=== PATIENT | female | born 1940 | race Caucasian/White ===

== ENCOUNTER 2017-06-08 05:57 | Inpatient (IN) | payer MEDICARE, OTHER ==
[2017-05-11 13:00] VITALS: BMI 29.0
--- NOTE | 2017-05-11 13:38 | PAT Medication Instructions ---
Service Date May 11, 2017. Current Home Medication List Albuterol Hfa (Ventolin Hfa), 2-4 PUFFS INH Q6H Aspirin (Aspirin Ec), 81 MG PO QAM Atorvastatin (Lipitor), 20 MG PO QAM Cholecalciferol (Vitamin D3), 1 CAP PO NOON Furosemide (Lasix), 20 MG PO QAM Naproxen (Naprosyn), 250 MG PO PRN Plecanatide (Trulance), 3 MG PO NOON Sertraline (Zoloft), 50 MG PO QPM Verapamil (Calan), 160 MG PO QAM Wheat Dextrin (Benefiber), 1 DOSE PO QAM Zolpidem Tartrate (Ambien), 5-10 MG PO HS PRN for Sleep Medication Instructions For Your Scheduled Surgery Naproxen (Naprosyn), 250 MG PO PRN (check with surgeon for instructions) - Hold the following medications the morning of surgery: Wheat Dextrin (Benefiber), 1 DOSE PO QAM Verapamil (Calan), 160 MG PO QAM Cholecalciferol (Vitamin D3), 1 CAP PO NOON Furosemide (Lasix), 20 MG PO QAM Plecanatide (Trulance), 3 MG PO NOON - Take the following medications the morning of surgery with a sip of water: Albuterol Hfa (Ventolin Hfa), 2-4 PUFFS INH Q6H (if needed) Aspirin (Aspirin Ec), 81 MG PO QAM (okay to continue per surgeon) Atorvastatin (Lipitor), 20 MG PO QAM - Take the following medications as scheduled the night before surgery: Zolpidem Tartrate (Ambien), 5-10 MG PO HS PRN for Sleep (if needed) Sertraline (Zoloft), 50 MG PO QPM Albuterol Hfa (Ventolin Hfa), 2-4 PUFFS INH Q6H (if needed) If you have any questions please call us at [phone] or [phone] or [phone]
--- NOTE | 2017-05-11 14:10 | DIAGNOSTIC IMAGING REPORT ---
CHEST PREADMISSION(PA/LAT) CLINICAL HISTORY: PAT preoperative evaluation COMPARISON STUDY: 06/02/2015 FINDINGS: Bipolar cardiac pacemaker. These are good position. Lungs are clear. Diaphragms smooth. IMPRESSION: No acute process. The above report was generated using voice recognition software. It may contain grammatical, syntax or spelling errors. Electronically signed by: Tian Elliott M.D. 05/11/2017 2:09 PM Dictated Date/Time: 05/11/2017 2:09 PM
[2017-05-11 14:38] LABS: BASO % 0.9 %; BASO ABS # 0.04 K/uL (0-0.2); COMPLETE YES; EOS % 4.5 %; HEMATOCRIT 39.5 % (37-47); LYMPH ABS # 1.79 K/uL (1.2-3.4); MEAN CELL VOLUME 96.8 fL (80-100); MEAN CORPUSCULAR HEMOGLOBIN 30.9 pg (25-34); MEAN CORPUSCULAR HGB CONC 31.9 g/dl (32-36); MEAN PLATELET VOLUME 10.5 fL (7.4-10.4); MONO % 12.1 %; NEUT % 42.5 %; PLATELET COUNT 175 K/uL (130-400); RED BLOOD COUNT 4.08 M/uL (4.2-5.4); WHITE BLOOD COUNT 4.48 K/uL (4.8-10.8)
[2017-05-11 14:48] LABS: URINE APPEARANCE CLEAR (CLEAR); URINE BILIRUBIN NEG (NEG); URINE COLOR YELLOW; URINE NITRITE NEG (NEG); URINE PH 6.5 (4.5-7.5); URINE SPECIFIC GRAVITY 1.016 (1.000-1.030); UROBILINOGEN NEG (NEG)
[2017-05-11 14:49] LABS: MANUAL MICROSCOPIC REQUIRED? NO; REVIEW REQ? NO
[2017-05-11 14:58] LABS: PARTIAL THROMBOPLASTIN RATIO 0.9
[2017-05-11 15:38] LABS: BUN/CREATININE RATIO 25.7 (10-20); CREATININE 0.74 mg/dl (0.60-1.20); POTASSIUM 3.9 mmol/L (3.5-5.1)
--- NOTE | 2017-06-07 17:30 | HISTORY & PHYSICAL EXAMINATION ---
DATE OF ADMISSION: 06/08/2017 CHIEF COMPLAINT: Left knee pain. HISTORY OF PRESENT ILLNESS: Luna is a pleasant 76-year-old female who presented to my office with chronic left knee pain. X-rays and clinical examination have been diagnostic for primary osteoarthritis of the left knee. After failing years of conservative treatment, she elected to proceed with a left total knee arthroplasty. PAST MEDICAL HISTORY: Significant for heart disease, hypertension and asthma. PAST SURGICAL HISTORY: Tonsillectomy, cervical spine procedure, pacemaker placement, hysterectomy and low back surgery. ALLERGIES: BEES. MEDICATIONS: Include Trulance 3 mg daily, verapamil 160 mg daily, Zoloft 50 mg daily, Lipitor 20 mg daily, and aspirin 81 mg daily. FAMILY HISTORY: Noncontributory. SOCIAL HISTORY: She is . Never drinks. Denies any alcohol or IV drug use. She does little activity at this time. REVIEW OF SYSTEMS: She complains of left knee pain. All other pertinent review of systems are negative. PHYSICAL EXAMINATION: GENERAL: She is awake, alert and orient x3. She is in no apparent distress. She is very pleasant. HEENT: Pupils are equal, round and reactive to light. Extraocular motion intact. Oral mucosa is pink and moist. HEART: Regular rate per radial pulse. LUNGS: symmetrically bilaterally with no audible breath sounds. ABDOMEN: Soft, nontender, and nondistended. MUSCULOSKELETAL: On physical examination of her left knee, she has no swelling or effusion. She has good range of motion from 0-120 degrees. She does have crepitus. She has tenderness to palpation over both the medial and lateral joint lines. She has painless range of motion of her hip. X-rays of the left knee do show advanced osteoarthritis of both medial and lateral compartments. She has joint space narrowing, osteophyte formation and subchondral cyst. IMPRESSION: Primary osteoarthritis of the left knee. PLAN: We will proceed with a Biomet Vanguard left total knee arthroplasty. Postoperatively, she will be placed on aspirin for DVT prophylaxis and admitted to the hospital for postoperative medical management.
[~2017-06-08] VITALS: Ht 165.1 cm; Wt 79.8 kg
[2017-06-08] VITALS (9 sets, daily range): BP systolic 133–180; BP diastolic 52–82; PULSE 59–79; TEMP 36.4–36.7; O2SAT 91–100; Ht 165.1 cm; Wt 79.8 kg
[~2017-06-08 05:57] MED LIST: ASPI81TA28 PO; ATOR-22 PO; CHOL2000 PO; FURO-85 PO; NAPR250T2 PO; PLEC3TAB PO; SERT50TA PO; VERA1TAB PO; VNTHFA/IN INH; WHEAPOW13 PO; ZOLP5TAB PO
[2017-06-08] MEDS ORDERED: LACTATED RINGER'S 1000ML 1,000 ML IV SCH (06:00)
[2017-06-08] MEDS ORDERED: LACTATED RINGER'S 1000ML 500 ML IV ONE (06:00)
[2017-06-08] MEDS ORDERED: ACETAMINOPHEN 500 MG TAB PO SCH (06:00)
[2017-06-08] MEDS ORDERED: GABAPENTIN 300 MG CAP PO SCH (06:00)
[2017-06-08] MEDS ORDERED: CEFAZOLIN 2000 MG/60 ML D5W 60 ML IV SCH (06:00)
[2017-06-08] MEDS ORDERED: FAMOTIDINE 20 MG TAB PO SCH (06:00)
[2017-06-08] MEDS ORDERED: LACTATED RINGER'S 1000ML IV SCH (06:00)
[2017-06-08] MEDS ORDERED: ROPIVACAINE 5MG/ML 30 ML 150 MG, BUPIVACAINE/EPINEPHR 0.5% MPF 30 ML, KETOROLAC TROMETH... INFIL SCH ×7 (06:00)
[2017-06-08] MEDS ORDERED: BUPIVACAINE 0.5 % 5 MG/1 ML PF 10ML VIAL ONE (06:27)
[2017-06-08] MEDS ORDERED: ROPIVACAINE 0.5% 5 MG/ML 30 ML VIAL ONE (06:27)
[2017-06-08] MEDS: TRANEXAMIC ACID INJ 1,000 MG in SODIUM CHLORIDE 0.9% 100ML 100 ML IV SCH ×2 (06:30→08:45)
--- NOTE | 2017-06-08 06:58 | History & Physical Bridge Note ---
H&P Re-Evaluation Bridge Note: I have examined the patient, reviewed the History & Physical and in the interval since the performance of the History & Physical I have noted the following changes of clinical significance: No changes noted
[2017-06-08] MEDS ORDERED: ORTHO JOINT ANESTHETIC ONE (08:26)
[2017-06-08] MEDS ORDERED: MIDAZOLAM HCL 1 MG/ML 2ML VIAL ONE ×2 (08:26)
[2017-06-08] MEDS ORDERED: FENTANYL CITRATE INJ 50 MCG/1 ML 2 ML VIAL ONE (08:26)
[2017-06-08] MEDS ORDERED: BACITRACIN 50000 UNIT VIAL ONE (08:26)
[2017-06-08] MEDS ORDERED: HYDROmorphone INJ 2 MG/ML SYR/VIAL IV PRN (09:00)
[2017-06-08] MEDS ORDERED: ONDANSETRON INJ 2 MG/ML 2 ML VIAL IV PRN ×2 (09:00→11:00)
[2017-06-08] MEDS ORDERED: PHENYLEPHRINE 100MCG/ML 5ML SYR IV PRN (09:00)
[2017-06-08] MEDS ORDERED: EpHEDrine SULFATE INJ 50 MG/ML AMP IV PRN (09:00)
[2017-06-08] MEDS ORDERED: ATROPINE SULFATE 0.1 MG/ML 5ML SYR IV PRN (09:00)
--- NOTE | 2017-06-08 10:47 | [facility] Post Operative Brief Note ---
Immediate Operative Summary Operative Date Jun 08, 2017. Pre-Operative Diagnosis Primary Osteoarthritis Left Knee Post-Operative Diagnosis Primary Osteoarthritis Left Knee Procedure(s) Performed Left Total Knee Arthroplasty Surgeon Dr. Brothers Brand Director Surgeon(s) CONRADO Rubin Estimated Blood Loss 5cc Findings as above Specimens A. Left Knee Bone and Tissue Complication(s) None Disposition Recovery Room / PACU
[2017-06-08] MEDS ORDERED: MoRPHine SULFATE 2 MG/ML CARP IV PRN (11:00)
[2017-06-08] MEDS ORDERED: ZOLPIDEM TARTRATE 5 MG TAB PO PRN (11:00)
[2017-06-08] MEDS ORDERED: SILVER SULFADIAZINE 1% CR 50 GM JAR EXT PRN (11:00)
[2017-06-08] MEDS ORDERED: SOD PHOSPHATE/SOD BIPHOSPHATE ENEMA 132 ML BTL PR PRN (11:00)
[2017-06-08] MEDS ORDERED: BISACODYL 10 MG SUPP PR PRN (11:00)
[2017-06-08] MEDS ORDERED: MAGNESIUM HYDROXIDE SUSP 30 ML UDC PO PRN (11:00)
[2017-06-08] MEDS ORDERED: METOCLOPRAMIDE HCL INJ 5 MG/ML 2 ML VIAL IV PRN (11:00)
[2017-06-08] MEDS ORDERED: PROPOFOL IV EMULSION 10 MG/ML 20 ML VIAL IV ONE (11:20)
--- NOTE | 2017-06-08 11:29 | OPERATIVE REPORT ---
DATE OF OPERATION: 06/08/2017 PREOPERATIVE DIAGNOSIS: Primary osteoarthritis of the left knee. POSTOPERATIVE DIAGNOSIS: Same. PROCEDURE: Left total knee arthroplasty. SURGEON: Dr. David Brothers. SURGICAL ELASTIC KNITTER: Robb Diamond PA-C, whose assistance was necessary for positioning of the leg and helping with instrumentation. ANESTHESIA: Spinal with a left adductor nerve block. COMPLICATIONS: None. CONDITION: Stable to PACU. IMPLANTS USED: I used a Biomet Vanguard left total knee arthroplasty system with a size 65 femur, 71 tibia, size 14 posterior stabilized poly and a 31 x 8 patella. All components were cemented with Palacos-G cement. INDICATIONS: Luna is a pleasant 76-year-old female who presented to my office with chronic left knee pain. X-rays and clinical examination were diagnostic for primary osteoarthritis of the left knee. After failing conservative treatment, she elected to undergo a left total knee arthroplasty. DESCRIPTION OF PROCEDURE: On 06/08/2017, she arrived at [facility] for the above procedure. She was seen in the preoperative holding area and the operative extremity was identified and signed. She was given a preoperative antibiotic, a spinal anesthetic and a left adductor nerve block. She was taken back to the operating room, laid on the table in the supine position and put under basic sedation. The left knee was then prepped and draped in sterile fashion. Time-out was done and the patient and operative extremity was properly identified. A midline incision was made directly over the patella. Dissection was taken down to the extensor mechanism and a medial parapatellar arthrotomy was used. The fat pad was left in place. The medial retinaculum was released. The knee was then flexed. ACL, PCL and meniscus were removed. A drill was sent down the center of the femoral canal followed by an intramedullary darrin. Off that darrin, a distal femoral cutting block was placed and 12 mm was resected off the distal femur at 5 degrees of valgus. A posterior referencing guide was used to measure the femur and it measured to be a size 65. Two drill holes were placed in 3 degrees of external rotation and 3-in-1 cutting block was impacted into place. Anterior, posterior and chamfer cuts were then made. The box cutting guide was then impacted into place and the box was resected for the posterior stabilizing component. The proximal tibia was then exposed. A drill was sent down the center of the tibial canal followed by an intramedullary darrin. Off that darrin, a proximal tibial resection guide was placed and 2 mm was resected off the low medial side. The tibia measured to be a size 71. It was set in the appropriate rotation, drilled and then punched. Trials were then placed. The knee was brought through a full range of motion and felt to be stable. The patella was then everted and 8 mm was resected off the posterior aspect of the patella. The patella measured to be a size 31, 3 peg holes were drilled and a trial was placed. The knee was brought through a full motion and felt good. Trials were then removed. The final femoral, tibial, and patellar components were then cemented in place with Palacos-G cement. Once cement had hardened, several different polyethylene trials were used and a size 14 posterior stabilized poly seemed to be the best fit. The final size [address] and the anterior bar was locked. The surrounding soft tissues were all injected with 100 mL of an orthopedic pain control cocktail. The knee was then irrigated with 3 liters of normal saline solution with bacitracin. Two drains were placed. The extensor mechanism was then closed with #2 FiberWire suture in the superior medial aspect and then #1 Vicryl suture, both proximally and distally. The skin was then closed with 2-0 Vicryl, 3-0 V-Loc suture and jez. She was then placed in a soft compressive dressing and taken to the postanesthesia care unit in stable condition. She tolerated the procedure well. I attest to the content of the Intraoperative Record and any orders documented therein. Any exception s are noted below.
--- NOTE | 2017-06-08 11:33 | DIAGNOSTIC IMAGING REPORT ---
LEFT KNEE 1 OR 2 VIEWS ROUTINE CLINICAL HISTORY: Postoperative evaluation. Left knee degenerative joint disease. COMPARISON: Knee radiographs March 21, 2017. FINDINGS: Alignment of the total left knee arthroplasty is anatomic. There is no fracture or unexpected radiopaque foreign body. Skin jez and drains are present. IMPRESSION: Expected findings following total left knee arthroplasty. Electronically signed by: Kemar Morales M.D. 06/08/2017 11:32 AM Dictated Date/Time: 06/08/2017 11:31 AM
--- NOTE | 2017-06-08 12:35 | Anesthesiology Progress Note ---
Anesthesia Post Op Note Date & Time Jun 08, 2017 at 12:35 Vital Signs Pain Intensity: 0 Vital Signs Past 12 Hours Date Time Temp Pulse Resp B/P (MAP) Pulse Ox O2 Delivery O2 Flow Rate FiO2 06/08/17 11:55 59 15 06/08/17 11:55 65 15 125/68 96 06/08/17 11:50 64 14 124/59 98 06/08/17 11:50 60 14 06/08/17 11:49 36.3 66 18 126/62 99 Nasal Cannula 2 06/08/17 11:45 61 14 06/08/17 11:45 65 14 126/62 99 06/08/17 11:40 60 14 122/61 100 06/08/17 11:40 60 14 06/08/17 11:36 119/54 06/08/17 11:35 63 19 06/08/17 11:35 63 19 97 06/08/17 11:30 63 14 125/57 100 06/08/17 11:30 57 14 06/08/17 11:25 62 15 123/59 100 06/08/17 11:25 60 15 06/08/17 11:20 60 23 06/08/17 11:20 63 23 110/92 100 06/08/17 11:16 36.1 62 16 111/64 100 Mask 10 06/08/17 11:16 111/54 06/08/17 11:15 60 18 100 06/08/17 11:15 60 18 06/08/17 06:20 36.7 60 20 180/72 98 Room Air Notes Mental Status: alert / awake / arousable, participated in evaluation Pt Amnestic to Procedure: Yes Nausea / Vomiting: adequately controlled Pain: adequately controlled Airway Patency, RR, SpO2: stable & adequate BP & HR: stable & adequate Hydration State: stable & adequate Anesthetic Complications: no major complications apparent
[2017-06-08] MEDS: SODIUM CHLORIDE 0.9% 1000ML 1,000 ML IV SCH ×2 (13:33→21:13)
[2017-06-08] MEDS: KETOROLAC TROMETHAMINE 15 MG/ML VIAL IV. SCH ×3 (14:30→23:55)
[2017-06-08] MEDS: ACETAMINOPHEN IV 1,000 MG in EMPTY BAG 0 ML IV SCH ×2 (16:42→23:56)
[2017-06-08] MEDS: CEFAZOLIN IV 2,000 MG in DEXTROSE 5% 50ML 50 ML IV SCH (17:48)
[2017-06-08] MEDS: ALBUTEROL HFA 8 GM INHALER INH SCH ×2 (17:49→23:55)
[2017-06-08] MEDS: DOCUSATE SODIUM 100 MG CAP PO SCH (21:24)
[2017-06-08] MEDS: ASPIRIN 325 MG ECTAB PO SCH (21:24)
[2017-06-08] MEDS: SERTRALINE HCL 50 MG TAB PO SCH (21:24)
[2017-06-08] MEDS: SENNA 8.6 MG TAB PO SCH (21:25)
[2017-06-09] MEDS: CEFAZOLIN IV 2,000 MG in DEXTROSE 5% 50ML 50 ML IV SCH (01:43)
[2017-06-09 03:22] VITALS: BP 123/64; PULSE 71; TEMP 36.5; O2SAT 93
[2017-06-09] MEDS: ALBUTEROL HFA 8 GM INHALER INH SCH ×4 (05:26→23:26)
[2017-06-09] MEDS: KETOROLAC TROMETHAMINE 15 MG/ML VIAL IV. SCH ×4 (05:34→23:26)
[2017-06-09] MEDS: SODIUM CHLORIDE 0.9% 1000ML 1,000 ML IV SCH (05:34)
[2017-06-09 06:00] LABS: HEMATOCRIT 32.1 % (37-47); MEAN CELL VOLUME 95.5 fL (80-100); MEAN CORPUSCULAR HEMOGLOBIN 30.7 pg (25-34); MEAN CORPUSCULAR HGB CONC 32.1 g/dl (32-36); MEAN PLATELET VOLUME 10.3 fL (7.4-10.4); PLATELET COUNT 152 K/uL (130-400); RED BLOOD COUNT 3.36 M/uL (4.2-5.4); WHITE BLOOD COUNT 10.23 K/uL (4.8-10.8)
[2017-06-09 06:36] LABS: BUN/CREATININE RATIO 23.4 (10-20); CALCIUM 8.6 mg/dl (8.5-10.1); CREATININE 0.8 mg/dl (0.60-1.20); POTASSIUM 3.6 mmol/L (3.5-5.1)
[2017-06-09 07:13] VITALS: BP 153/73; PULSE 62; TEMP 36.5; O2SAT 95
[2017-06-09] MEDS: ACETAMINOPHEN IV 1,000 MG in EMPTY BAG 0 ML IV SCH ×3 (07:30→23:33)
[2017-06-09] MEDS: PANTOprazole SOD 40 MG TAB PO SCH (07:31)
[2017-06-09] MEDS: ASPIRIN 325 MG ECTAB PO SCH ×2 (09:03→20:32)
[2017-06-09] MEDS: VERAPAMIL HCL 40 MG TAB PO SCH (09:03)
[2017-06-09] MEDS: ATORVASTATIN 20 MG TAB PO SCH (09:03)
[2017-06-09] MEDS: MULTIVITAMIN TAB PO SCH (09:04)
[2017-06-09] MEDS: DOCUSATE SODIUM 100 MG CAP PO SCH ×2 (09:04→20:34)
[2017-06-09] MEDS: FUROSEMIDE 20 MG TAB PO SCH (09:05)
[2017-06-09] MEDS: OXYCODONE HCL IR 5 MG TAB (IMMEDIATE RELEASE) PO PRN ×2 (09:07→19:52)
--- NOTE | 2017-06-09 09:09 | PROGRESS NOTE ---
DATE: 06/09/2017 DATE: 06/09/2017 CHIEF COMPLAINT: Status post left total knee arthroplasty postop day #1. PROGRESS: Luna was seen and examined at bedside today. Overall, she is doing very well. She has mild pain in her knee. She is sitting up eating breakfast, had no acute events overnight and has no complaints. PHYSICAL EXAMINATION: LEFT KNEE: The dressing is clean and dry and the drain is to suction. She has active dorsiflexion and plantarflexion of her left ankle and sensation is intact throughout. LABORATORY DATA: Show an H&H today of 10.3 and 32.1. Her glucose is 123. Her vital signs are all stable on room air and she is voiding on her own and has had 1 bowel movement. X-rays postoperatively of the left knee showed the prosthesis to be anatomical without any evidence of fracture, dislocation or loosening. IMPRESSION: Status post left total knee arthroplasty postop day #1. PLAN: At this point, she is doing well. She is not having much pain in the knee. She will be seen by physical therapy today for ambulation. She is on aspirin 325 mg twice a day for DVT prophylaxis. [facility] tomorrow. She will be followed by case management.
[2017-06-09 11:18] VITALS: BP 111/68; PULSE 60; TEMP 36.6; O2SAT 97
[2017-06-09 11:44] VITALS: BP 135/72; PULSE 69; O2SAT 96
[2017-06-09] MEDS: CHOLECALCIFEROL 1000 INTER.UNIT TAB PO SCH (12:31)
[2017-06-09 15:04] VITALS: BP 108/63; PULSE 61; TEMP 36.6; O2SAT 97
[2017-06-09 19:08] VITALS: BP 145/77; PULSE 66; TEMP 36.7; O2SAT 98
[2017-06-09] MEDS: SENNA 8.6 MG TAB PO SCH (20:32)
[2017-06-09] MEDS: SERTRALINE HCL 50 MG TAB PO SCH (20:32)
[2017-06-10 00:01] VITALS: BP 154/75; PULSE 60; TEMP 36.4; O2SAT 96
[2017-06-10] MEDS: ALBUTEROL HFA 8 GM INHALER INH SCH ×4 (04:48→22:59)
[2017-06-10] MEDS: KETOROLAC TROMETHAMINE 15 MG/ML VIAL IV. SCH ×2 (05:57→12:38)
[2017-06-10 05:59] VITALS: BP 157/73; PULSE 65; TEMP 36.6; O2SAT 93
[2017-06-10] MEDS: OXYCODONE HCL IR 5 MG TAB (IMMEDIATE RELEASE) PO PRN ×2 (06:01→15:59)
[2017-06-10 07:05] VITALS: BP 160/80; PULSE 60; TEMP 36.6; O2SAT 95
[2017-06-10] MEDS: ACETAMINOPHEN IV 1,000 MG in EMPTY BAG 0 ML IV SCH ×2 (07:20→07:28)
[2017-06-10] MEDS: DOCUSATE SODIUM 100 MG CAP PO SCH ×2 (07:21→20:42)
[2017-06-10] MEDS: PANTOprazole SOD 40 MG TAB PO SCH (07:21)
[2017-06-10] MEDS: MULTIVITAMIN TAB PO SCH (07:21)
[2017-06-10] MEDS: ATORVASTATIN 20 MG TAB PO SCH (07:22)
[2017-06-10] MEDS: FUROSEMIDE 20 MG TAB PO SCH (07:22)
[2017-06-10] MEDS: ASPIRIN 325 MG ECTAB PO SCH ×2 (07:22→20:42)
[2017-06-10] MEDS: VERAPAMIL HCL 40 MG TAB PO SCH (08:24)
[2017-06-10 08:31] VITALS: BP 138/77; PULSE 63
[2017-06-10] MEDS ORDERED: NURSING VERBAL MED ORDER ONE (09:45)
[2017-06-10] MEDS ORDERED: RXC5 PO (09:47)
[2017-06-10] MEDS ORDERED: ASPEC325 PO (09:47)
--- NOTE | 2017-06-10 09:48 | Discharge Instructions ---
Discharge Instructions Date of Service Jun 10, 2017. Admission Reason for Admission: Left Knee Degenerative Joint Disease Discharge Discharge Diagnosis / Problem: Total Knee Discharge Goals Goal(s): Decrease discomfort, Improve function Activity Recommendations Activity Limitations: as noted below . Instructions / Follow-Up Instructions / Follow-Up Activity and Therapy Recommendations: * If you are using [facility] then Physical Therapy will be provided until they feel you are ready to start Outpatient Physical Therapy. If you are not using a Home Health agency then Outpatient Physical Therapy should start about 3-5 days from your day of surgery. Therapy will last about 6-10 weeks * It is important not to put a pillow under your knee when you are relaxing or sleeping. It is just as important to make sure you are getting your knee perfectly straight as it is to regain your knee bend. * You were shown a series of exercises in the hospital. Do these exercises three times each day including the exercises you were shown in physical therapy. * Get up and walk several times each day. For the first four weeks, try not to stand or walk for more than one hour at a time. If you do stand or walk for more than one hour, you will not hurt anything, but your leg will likely swell. * As you feel comfortable, you may change from the walker or crutches to a cane and then to independent walking. Medications: * Narcotic You will likely be sent home from the hospital with a prescription for the narcotic pain medication that worked best throughout your stay. * Aspirin Most patients will be required to take Aspirin 325mg twice a day for 6 weeks after surgery. This is obtained [id number] and a prescription is not necessary. * Other medications may be prescribed for specific circumstances. If you have any questions, please call the office at . * Resume previous home medications unless otherwise instructed TEDs/Elastic Stockings: The white elastic stockings help limit swelling and prevent blood clots from forming in your legs.~ The more you wear them, the more they work. Wear them for six weeks. Showering: You may shower 5 days from the day of surgery. Let the soapy shower water run over the jez. Do not scrub or soak the incision. Things To Watch For: * Drainage from the incision site that occurs more than one week after your surgery. * Increased redness at the incision site. * Fever above 102 degrees Fahrenheit. * Unusual chest pain or shortness of breath. * Call [facility] at with any of the above problems Follow-Up Visit: Follow-up with Dr. Brothers 2-3 weeks after your day of surgery. An appointment was probably scheduled when you signed-up for surgery in the office. If you have any questions call Office Instructions: More detailed instructions as well as Frequently Asked Questions were provided in a folder by our office when you signed-up for surgery. Please review these instructions when you get home. If you have any further questions or concerns, please feel free to call the office at [phone] Current Hospital Diet Patient's current hospital diet: Regular Diet Discharge Diet Recommended Diet: Regular Diet Procedures Procedures Performed: Left Total Knee Arthroplasty Pending Studies Studies pending at discharge: no Medical Emergencies . Who to Call and When: Medical Emergencies: If at any time you feel your situation is an emergency, please call [phone] immediately. . Non-Emergent Contact Non-Emergency issues call your: Surgeon Call Non-Emergent contact if: wound has increased drainage, wound has increased redness . "Provider Documentation" section prepared by David Brothers. . VTE Core Measure Inpt VTE Proph given/why not?: Other Anticoagulation (Aspirin 325 twice a day for 6 weeks)
[2017-06-10] MEDS ORDERED: ACETAMINOPHEN 500 MG TAB PO ONE (10:11)
[2017-06-10] MEDS: ACETAMINOPHEN 500 MG TAB PO SCH ×2 (10:13→17:59)
[2017-06-10] MEDS: CHOLECALCIFEROL 1000 INTER.UNIT TAB PO SCH (12:41)
[2017-06-10 15:17] VITALS: BP 111/66; PULSE 58; TEMP 36.7; O2SAT 95
[2017-06-10] MEDS: SERTRALINE HCL 50 MG TAB PO SCH (20:42)
[2017-06-10] MEDS: SENNA 8.6 MG TAB PO SCH (20:43)
--- NOTE | 2017-06-10 22:03 | PROGRESS NOTE ---
DATE: 06/10/2017 CHIEF COMPLAINT: Status post left total knee arthroplasty postop day #2. PROGESS: Luna was seen and examined at bedside today. Overall, she is doing fairly well. She has a little soreness in her knee, but it is not too bad. She has no complaints. PHYSICAL EXAMINATION: LEFT KNEE: The dressing is clean and dry and the drain has been pulled. She is neurovascularly intact. IMPRESSION: Status post left total knee arthroplasty postop day #2. PLAN: At this point, she is doing fairly well. Her vital signs are all stable. She is taking aspirin for DVT prophylaxis. We are expecting discharge to [facility] tomorrow.
[2017-06-10 23:20] VITALS: BP 155/71; PULSE 61; TEMP 37; O2SAT 96
[2017-06-11] MEDS: ACETAMINOPHEN 500 MG TAB PO SCH ×3 (01:48→18:26)
[2017-06-11] MEDS: ALBUTEROL HFA 8 GM INHALER INH SCH ×3 (05:40→18:00)
[2017-06-11] MEDS: OXYCODONE HCL IR 5 MG TAB (IMMEDIATE RELEASE) PO PRN ×3 (06:16→21:18)
[2017-06-11 06:20] VITALS: BP 146/69; PULSE 55; TEMP 36.6; O2SAT 96
[2017-06-11] MEDS: ASPIRIN 325 MG ECTAB PO SCH ×2 (07:32→21:16)
[2017-06-11] MEDS: DOCUSATE SODIUM 100 MG CAP PO SCH ×2 (07:32→21:15)
[2017-06-11] MEDS: ATORVASTATIN 20 MG TAB PO SCH (07:34)
[2017-06-11] MEDS: FUROSEMIDE 20 MG TAB PO SCH (07:34)
[2017-06-11] MEDS: PANTOprazole SOD 40 MG TAB PO SCH (07:34)
[2017-06-11] MEDS: MULTIVITAMIN TAB PO SCH (07:34)
[2017-06-11] MEDS: VERAPAMIL HCL 40 MG TAB PO SCH (09:17)
[2017-06-11 09:18] VITALS: BP 142/75; PULSE 71
[2017-06-11 09:22] VITALS: BP_SYST 142; BP_SYST 152; BP_DIAS 75; BP_DIAS 77; PULSE 66; PULSE 71; TEMP 36.6; TEMP 36.7; O2SAT 96
--- NOTE | 2017-06-11 09:50 | Anesthesiology Progress Note ---
Anesthesia Post Op Note Date & Time Jun 11, 2017 at 09:49 Vital Signs Pain Intensity: 4 Vital Signs Past 12 Hours Date Time Temp Pulse Resp B/P (MAP) Pulse Ox O2 Delivery O2 Flow Rate FiO2 06/11/17 09:22 36.6 71 15 96 Room Air 06/11/17 09:18 71 142/75 (97) 06/11/17 07:27 Room Air 06/11/17 06:20 36.6 55 15 146/69 (94) 96 Room Air 06/10/17 23:20 37.0 61 16 155/71 (99) 96 Room Air 06/10/17 23:15 Room Air Notes Mental Status: alert / awake / arousable Pt Amnestic to Procedure: Yes Nausea / Vomiting: adequately controlled Pain: adequately controlled Airway Patency, RR, SpO2: stable & adequate BP & HR: stable & adequate Hydration State: stable & adequate Neuraxial Anesthesia: sensory block resolved
[2017-06-11] MEDS: CHOLECALCIFEROL 1000 INTER.UNIT TAB PO SCH (12:16)
[2017-06-11 14:59] VITALS: BP 145/77; PULSE 59; TEMP 36.6; O2SAT 97
--- NOTE | 2017-06-11 20:36 | PROGRESS NOTE ---
DATE: 06/11/2017 CHIEF COMPLAINT: Status post left total knee arthroplasty postop day #3. PROGRESS: Luna was seen and examined at bedside today. Overall, she is doing very well. She is up and ambulating well in the room. She is working well with physical therapy. Her pain is controlled. She has no complaints. PHYSICAL EXAMINATION: LEFT KNEE: The incision is clean and dry. The dressing has been changed, the drain has been pulled. The jez are open to air and everything looks good. She is neurovascularly intact. IMPRESSION: Status post left total knee arthroplasty postop day #3. PLAN: At this point, she is doing well. She has continued to ambulate. We are awaiting insurance authorization for discharge to [facility]. We plan discharge early tomorrow morning. I will see her in my office in 2 weeks.
[2017-06-11] MEDS: SERTRALINE HCL 50 MG TAB PO SCH (21:15)
[2017-06-11] MEDS: SENNA 8.6 MG TAB PO SCH (21:16)
[2017-06-11 23:07] VITALS: BP 118/66; PULSE 73; TEMP 36.7; O2SAT 93
--- NOTE | 2017-06-12 01:14 | DISCHARGE SUMMARY ---
DISCHARGE DIAGNOSIS: Primary osteoarthritis of the left knee. PROCEDURE: Left total knee arthroplasty on 06/08/[address] David Brothers. DISCHARGE INSTRUCTIONS: 1. Aspirin 325 mg twice a day for 6 weeks. 2. Oxycodone 5-10 mg every 4 hours as needed for pain. 3. Albuterol 1-2 puffs every 6 hours as needed. 4. Lipitor 20 mg daily. 5. Vitamin D3 2000 units at noon. 6. Lasix 20 mg daily. 7. Naprosyn 250 mg as needed. 8. Trulance 3 mg at noon. 9. Zoloft 50 mg daily. 10. Calan 160 mg daily. 11. Benefiber daily. 12. Ambien as needed. 13. MARK hose stockings for 6 weeks. 14. Follow up with Dr. Brothers in 2 weeks. 15. Call the office of Dr. Brothers with any questions or concerns. HOSPITAL COURSE: Luna is a pleasant 76-year-old female, who presented to my office with complaints of chronic left knee pain. X-rays and clinical examination were diagnostic for primary osteoarthritis of the left knee. After failing conservative treatment, she elected to undergo a left total knee arthroplasty. On 06/08/2017, she arrived at [facility] and underwent a left knee replacement without complications. She had a spinal anesthetic and a left adductor nerve block. Postoperatively, she was discharged to the general orthopedic floors and started on aspirin 325 mg twice a day. Her hospital course was uneventful. On postop day #1, her H&H was stable at 10.3 and 32.1. She was able to get up and ambulate well with physical therapy. Her pain was well-controlled. On postop day #2, the dressing was changed, the drain was pulled and she continued to work well with physical therapy. Through case management, she had decided to go to [facility]. On postop day 3, she continued to do well and her pain was controlled. Her vital signs were all stable. The insurance was not authorizing to discharge to [facility], so she stayed for physical therapy. On postop day #4, she continued to do well. Therapy was getting her up and ambulating around the fragoso. She got insurance authorization, and was subsequently discharged to [facility] with the above instructions.
[2017-06-12] MEDS: ACETAMINOPHEN 500 MG TAB PO SCH ×2 (02:02→09:54)
[2017-06-12] MEDS: ALBUTEROL HFA 8 GM INHALER INH SCH ×3 (05:35→12:00)
[2017-06-12 07:19] VITALS: BP 152/77; PULSE 66; TEMP 36.7; O2SAT 94
[2017-06-12] MEDS: FUROSEMIDE 20 MG TAB PO SCH (09:01)
[2017-06-12] MEDS: MULTIVITAMIN TAB PO SCH (09:01)
[2017-06-12] MEDS: ATORVASTATIN 20 MG TAB PO SCH (09:01)
[2017-06-12] MEDS: DOCUSATE SODIUM 100 MG CAP PO SCH (09:01)
[2017-06-12] MEDS: ASPIRIN 325 MG ECTAB PO SCH (09:01)
[2017-06-12] MEDS: PANTOprazole SOD 40 MG TAB PO SCH (09:02)
[2017-06-12] MEDS: VERAPAMIL HCL 40 MG TAB PO SCH (09:53)
[2017-06-12] MEDS: CHOLECALCIFEROL 1000 INTER.UNIT TAB PO SCH (12:15)
== END 2017-06-12 13:00 | DRG 470 ==
LOC: C.ACU 05:57 → C.3E 10:52 → ENRESERV 11:44
PROVIDERS: ADMIT Orthopaedic Surgery; ATTEND Orthopaedic Surgery
PROC: 0SRD0J9 Replacement of Left Knee Joint with Synthetic Substitute, Cemented, Open Approach (ICD-10-PCS; principal; 2017-06-08 09:30)
DX: M17.9 Osteoarthritis of knee, unspecified (principal); I10 Essential (primary) hypertension; J45.909 Unspecified asthma, uncomplicated; Z95.0 Presence of cardiac pacemaker; Z90.710 Acquired absence of both cervix and uterus; Z79.82 Long term (current) use of aspirin

== ENCOUNTER → 2018-05-13 | Outpatient (CLI) | payer MEDICARE, OTHER ==
[~2018-05-13] MED LIST changes: +APIX1TAB PO; +ASPI1TAB83 PO; -ASPI81TA28 PO; -CHOL2000 PO; +FLEC50TA20 PO; +NAPR1TAB48 PO; -NAPR250T2 PO
--- NOTE | 2018-05-13 12:12 | DIAGNOSTIC IMAGING REPORT ---
CHEST 2 VIEWS ROUTINE CLINICAL HISTORY: pat preoperative COMPARISON STUDY: 2016 FINDINGS: Bipolar cardiac pacemaker with leads in good position. Lungs are clear. The diaphragms are smooth. There are no focal infiltrative changes. IMPRESSION: No acute process. The above report was generated using voice recognition software. It may contain grammatical, syntax or spelling errors. Electronically signed by: Tian Elliott M.D. 05/13/2018 12:10 PM Dictated Date/Time: 05/13/2018 12:10 PM
[2018-05-13 12:44] LABS: BASO ABS # 0.05 K/uL (0-0.2); EOS % 3.8 %; EOS ABS # 0.19 K/uL (0-0.5); HEMATOCRIT 39.2 % (37-47); HEMOGLOBIN 13.1 g/dL (12.0-16.0); IG# 0.01 K/uL (0.00-0.02); LYMPH % 38.9 %; LYMPH ABS # 1.96 K/uL (1.2-3.4); MEAN CELL VOLUME 95.4 fL (80-100); MEAN CORPUSCULAR HEMOGLOBIN 31.9 pg (25-34); MEAN CORPUSCULAR HGB CONC 33.4 g/dl (32-36); MEAN PLATELET VOLUME 10.3 fL (7.4-10.4); MONO % 13.7 %; MONO ABS # 0.69 K/uL (0.11-0.59); NEUT % 42.4 %; NEUT ABS # 2.14 K/uL (1.4-6.5); PLATELET COUNT 153 K/uL (130-400); RED CELL DISTRIBUTION WIDTH CV 13.1 % (11.5-14.5); WHITE BLOOD COUNT 5.04 K/uL (4.8-10.8)
[2018-05-13 12:53] LABS: PTT PATIENT 24.5 SECONDS (21.0-31.0)
[2018-05-13 13:05] LABS: BLOOD UREA NITROGEN 13 mg/dl (7-18); CALCIUM 8.9 mg/dl (8.5-10.1); CARBON DIOXIDE 28 mmol/L (21-32); CREATININE 0.75 mg/dl (0.60-1.20); GLUCOSE 101 mg/dl (70-99); POTASSIUM 4.3 mmol/L (3.5-5.1); SODIUM 139 mmol/L (136-145)
== END | disposition home or self-care (01) ==
LOC: C.CPL 11:11
PROVIDERS: ATTEND Orthopaedic Surgery
DX: Z01.810 Encounter for preprocedural cardiovascular examination (principal); Z01.812 Encounter for preprocedural laboratory examination; Z01.818 Encounter for other preprocedural examination

== ENCOUNTER 2022-04-16 13:31 | Observation (INO) ==
--- NOTE | 2022-04-16 14:19 | Emergency Department Note ---
History of Present Illness General Chief complaint: Fall Stated complaint: FELL - 04/11 AND PAIN IS GETTING WORSE LOW BACK/HIP Time Seen by Provider: 04/16/22 13:57 Source: patient and family (Daughter who is at the bedside) Mode of arrival: ambulatory Limitations: no limitations History of Present Illness Maximum Pain Intensity: 8 This patient is an 81-year-old female comes in with pain in her left hip and back primarily. She said she fell on Sunday when she was unplugging something and lost her balance. There is no syncope or loss of consciousness and she is certain that this is what caused her to fall. She has been using a walker since then but has a lot of pain particular when getting up and down. She is able to bear weight. She has had a mild headache today which she gets from time to time but does not believe she hit her head. She is on aspirin. She had been on Eliquis and Plavix in the past for A. fib that she has paroxysmally but they stopped because she has had a lot of skin bruising and subsequent infections she tells me. No change in vision no facial pain or trauma. No chest pain or shortness of breath or trauma to the chest. No palpitations. She has had some chronic constipation which is unchanged no blood or melena stool no numbness or weakness in her legs no change in bowel or bladder function. No dysuria or hematuria Home Medications Medication Instructions Recorded Confirmed Type zolpidem 5 mg tablet (Ambien) 5 - 10 mg PO HS PRN Sleep #0 tabs 07/12/14 04/16/22 History atorvastatin 20 mg tablet 20 mg PO QPM #0 tabs 06/02/15 04/16/22 History furosemide 20 mg tablet 20 mg PO QAM #0 tabs 05/11/17 04/16/22 History alendronate 10 mg tablet 10 mg PO WK 03/30/22 04/16/22 History aspirin 81 mg tablet,delayed 81 mg PO DAILY 03/30/22 04/16/22 History release (Adult Low Dose Aspirin) cetirizine 10 mg tablet (Zyrtec) 10 mg PO DAILY PRN Congestion 03/30/22 04/16/22 History ferrous sulfate 325 mg (65 mg 325 mg PO DAILY 03/30/22 04/16/22 History iron) tablet fluticasone propionate 50 1 spray intranasal DAILY 03/30/22 04/16/22 History mcg/actuation nasal spray,suspension losartan 25 mg tablet (Cozaar) 25 mg PO DAILY 03/30/22 04/16/22 History pantoprazole 40 mg tablet,delayed 40 mg PO DAILY 03/30/22 04/16/22 History release (Protonix) verapamil 180 mg tablet,extended 180 mg PO DAILY 04/16/22 04/16/22 History release Allergies Allergy/AdvReac Type Severity Reaction Status Date / Time adhesive Allergy Intermediate RASH Verified 04/16/22 15:50 cat dander Allergy Mild itchy,watery Verified 04/16/22 15:50 eyes grass pollen-perennial rye, Allergy Mild itchy,watery Verified 04/16/22 15:50 standar eyes NSAIDS (Non-Steroidal AdvReac Severe Gastrointestinal Verified 04/16/22 15:50 Anti-Inflamma Upset nafcillin AdvReac Intermediate BODY Verified 04/16/22 15:50 WEAKENED,NAUSEA VOMITING,UNABLE TO FUNCTION Sulfa (Sulfonamide AdvReac Intermediate G I UPSET Verified 04/16/22 15:50 Antibiotics) Past Med/Surg History Medical History (Updated 04/16/22 @ 21:43 by David Barr MD) Asthma STABLE Atrial fibrillation CAD (coronary artery disease) STENT X 1 (1999) Degenerative disc disease Depression History of [place] (myocardial infarction) 1999 Hx of migraines Hypertension Pacemaker SICK SINUS SYNDROME/TACHYBRADY (2014); LAST CHECK 04/24/18 Pulmonary hypertension TIA (transient ischemic attack) 2014 Surgical History History of cardiac cath 1999 (STENT X 1), 2008 (NO STENTS) History of cervical discectomy History of colonoscopy History of lumbar surgery FUSION/LAMINECTOMY History of tonsillectomy History of tooth extraction History of total knee replacement LEFT TKA= 06/08/17= SAB + PNB R TKA 06/2018 Status post cardiac pacemaker procedure Family History Other No pertinent family history Social History Smoking Status: Never smoker Second Hand Exposure: No; Hx Alcohol Use: No Hx Substance Use: No Preferred Language: Maltese Communication Ability: Effective Visual Impairment: Limited Hearing Ability: Normal Water Conservation Specialist Required: No Beliefs That Will Affect Care: None Current Living Situation: Alone Feels Safe at Home: Yes Safety Concerns: Feels Safe At This Time Assistive Devices: Denture - Upper and Glasses Review of Systems A total of 10 systems reviewed and were otherwise negative Physical Exam Vital Signs Vital Signs - 24 hr 04/16/22 13:32 04/16/22 14:00 04/16/22 14:25 Temperature 37.0 C Temperature Source Temporal Artery Scan Pulse Rate 71 60 Pulse Rate from SpO2 Sensor Respiratory Rate 16 12 Blood Pressure 171/87 H 182/88 H Blood Pressure Mean 115 119 Pulse Oximetry 97 98 98 Oxygen Delivery Method Room Air Sepsis Recent Fever Within 48 Hours No Sepsis New/Unexplained Change in Mental Status No Sepsis Action Taken by Nursing No Action Required 04/16/22 14:00 04/16/22 14:30 04/16/22 14:40 Temperature Temperature Source Pulse Rate 68 61 65 Pulse Rate from SpO2 Sensor 65 Respiratory Rate 14 19 19 Blood Pressure 182/88 H 185/85 H Blood Pressure Mean 119 118 Pulse Oximetry 97 98 97 Oxygen Delivery Method Sepsis Recent Fever Within 48 Hours Sepsis New/Unexplained Change in Mental Status Sepsis Action Taken by Nursing 04/16/22 14:50 04/16/22 15:00 04/16/22 15:00 Temperature Temperature Source Pulse Rate 60 62 Pulse Rate from SpO2 Sensor 60 60 Respiratory Rate 13 18 Blood Pressure 192/85 H Blood Pressure Mean 120 Pulse Oximetry 98 97 Oxygen Delivery Method Sepsis Recent Fever Within 48 Hours Sepsis New/Unexplained Change in Mental Status Sepsis Action Taken by Nursing 04/16/22 15:10 04/16/22 15:20 04/16/22 16:01 Temperature Temperature Source Pulse Rate 59 L 63 60 Pulse Rate from SpO2 Sensor 60 59 L Respiratory Rate 16 15 16 Blood Pressure 202/92 H Blood Pressure Mean 128 Pulse Oximetry 95 97 98 Oxygen Delivery Method Sepsis Recent Fever Within 48 Hours Sepsis New/Unexplained Change in Mental Status Sepsis Action Taken by Nursing General: Well developed well nourished older female who is alert and orient x3 and appears in no acute distress, breathing comfortably on room air. Normal speech HEENT: Normal cephalic atraumatic. Pupils are equal round and reactive to light. Extraocular movements are intact. Oropharynx is pink with moist mucous membranes. No swelling of the mouth lips or tongue. Neck: Supple with a midline trachea. No meningeal signs or stiffness, no JVD or bruits. No Stridor. Chest: Clear to auscultation bilaterally. No wheezes or rhonchi. No increased work of breathing. Heart: Regular rate and rhythm without murmurs or gallops. Abdomen: Soft nontender minimally tender in the abdomen more so on the right and also towards the left hip and back but no external signs of trauma or bruising. Without rebound guarding or rigidity. Extremities: No cyanosis clubbing or edema. No calf tenderness or assymetry. No shortening or deformity of the lower extremities when I rotate the hip he has full range of motion and no limitations. Spine/Back. Non tender to palpation. Scar from previous back surgery she is mildly tender in the left flank. Skin: Good turgor without rashes. Neurologic exam: Cranial nerves two through 12 are intact. Motor and sensation are intact and symmetrical throughout. Course Administered Medications Acetaminophen (Acetaminophen 500 Mg Tab) 1,000 mg PO Q8 CHRISTI Stop: 05/16/22 17:58 Last Admin: 04/16/22 21:34 Dose: 1,000 mg Documented By: Admin: 04/16/22 18:26 Dose: 1,000 mg Documented By: DEBBIE Atorvastatin Calcium (Atorvastatin 20 Mg Tab) 20 mg PO QPM CHRISTI Stop: 05/16/22 20:59 Last Admin: 04/16/22 19:34 Dose: 20 mg Documented By: PAYAM Heparin Sodium (Porcine) (Heparin Sod 5,000 Unit/0.5 Ml Vial) 5,000 units SQ Q12 CHRISTI Stop: 05/16/22 20:59 Last Admin: 04/16/22 21:04 Dose: 5,000 units Documented By: PAYAM Lidocaine (Lidocaine 5% 1 Patch) 1 patch TD HS CHRISTI Stop: 05/16/22 18:59 Last Admin: 04/16/22 19:30 Dose: 1 patch Documented By: PAYAM Oxycodone HCl (Oxycodone Hcl Ir 5 Mg Tab (Immediate Release)) 5 mg PO Q4H PRN PRN Reason: Pain Stop: 04/30/22 17:49 Last Admin: 04/16/22 19:33 Dose: 5 mg Documented By: PAYAM Discontinued Medications Hydralazine HCl (Hydralazine Hcl 20 Mg/Ml Vial) 10 mg IV NOW STA Stop: 04/16/22 18:00 Last Admin: 04/16/22 18:26 Dose: 10 mg Documented By: DEBBIE Ioversol (Optiray 320 100ml) 94 ml IV ONCE ONE Stop: 04/16/22 15:36 Last Admin: 04/16/22 15:36 Dose: 94 ml Documented By: BERNADETTE Morphine Sulfate (Morphine Sulfate 2 Mg/Ml Carp) 2 mg IV NOW STA Stop: 04/16/22 16:10 Last Admin: 04/16/22 16:13 Dose: 2 mg Documented By: MARLYN Ondansetron HCl (Ondansetron Inj 2 Mg/Ml 2 Ml Vial) 4 mg IV NOW STA Stop: 04/16/22 16:10 Last Admin: 04/16/22 16:13 Dose: 4 mg Documented By: MARLYN Medical Decision Making Differential Diagnosis Fall, traumatic injuries, internal injuries, spinal injury, hip or pelvic fracture, electrolyte or metabolic abnormality, arrhythmia, cardiac disease Medical Records Attestation: I reviewed the patient's medical records. Home Medications Current Medication List: was personally reviewed by me Laboratory Data Attestation: I reviewed the patient's lab results. Result diagrams: 04/16/22 14:24 04/16/22 14:24 Lab Results 04/16/22 04/16/22 04/16/22 Range/Units 14:24 14:24 16:24 WBC 6.07 (4.8-10.8) K/ul RBC 4.04 (3.93-5.22) M/uL Hgb 12.5 (12.0-16.0) g/dl Hct 38.3 (34.1-44.9) % MCV 94.8 (80.0-100.0) fL MCH 30.9 (25.0-34.0) pg MCHC 32.6 (32.0-36.0) g/dL RDW Std Deviation 42.4 (36.4-46.3) fL RDW Coeff of Bradford 12.0 (11.5-14.5) % Plt Count 163 (130-400) K/uL MPV 10.0 (9.4-12.3) fL Immature Gran % (Auto) 0.2 % Neut % (Auto) 64.0 % Lymph % (Auto) 21.1 % Ector % (Auto) 11.4 % Eos % (Auto) 2.3 % Baso % (Auto) 1.0 % Neut # (Auto) 3.89 (1.4-6.5) K/uL Lymph # (Auto) 1.28 (1.2-3.4) K/uL Ector # (Auto) 0.69 (0.24-0.82) K/uL Eos # (Auto) 0.14 (0-0.50) K/uL Baso # (Auto) 0.06 (0-0.2) K/uL Immature Gran # (Auto) 0.01 (0.00-0.02) K/uL Sodium 138 (136-145) mmol/L Potassium 4.1 (3.5-5.1) mmol/L Chloride 104 (98-107) mmol/L Carbon Dioxide 29 (21-32) mmol/L Anion Gap 5 (3-11) BUN 13 (6-23) mg/dl Creatinine 0.71 (0.6-1.2) mg/dl Est Cr Clr Drug Dosing 55.0 ml/min Est GFR ( Amer) 91.9 ml/min Est GFR (Non-Af Amer) 79.3 ml/min BUN/Creatinine Ratio 18.3 (10-20) Glucose 104 H (70-99(Fasting)) mg/dl Calcium 8.9 (8.5-10.1) mg/dl Total Bilirubin 0.9 (0.2-1.0) mg/dl AST 18 (13-39) U/L ALT 9 (7-52) U/L Alkaline Phosphatase 83 (34-104) U/L Troponin I High Sens 5.1 (0-14) pg/ml Total Protein 6.2 (6.0-8.3) gm/dl Albumin 3.7 (3.4-5.0) gm/dl Globulin 2.5 (2.5-4.0) gm/dl Albumin/Globulin Ratio 1.5 (0.9-2) Lipase 29 (11-82) U/L SARS-CoV-2, RNA, NAAT NEGATIVE (NEGATIVE) Imaging Data Attestation: I personally reviewed and interpreted this imaging study as follow s: My Impression: Chest x-raycardiomegaly but no acute infiltrate, failure, pneumothorax seen Radiologist's Impression: Abdomen/Pelvis CT 04/16/22 14:11 CT SCAN OF THE ABDOMEN AND PELVIS WITH IV CONTRAST; CT SCAN OF THE LUMBAR SPINE WITH IV CONTRAST CLINICAL HISTORY: Fall. Left hip and low back pain. COMPARISON STUDY: Abdominal CT dated 07/06/2018. Pelvic CT dated 04/13/2022. CT scan of the lumbar spine dated 04/23/2020. TECHNIQUE: Following the IV administration of 94 cc of Optiray 320, CT scan of the abdomen and pelvis is performed from the lung bases to the proximal femora. Additionally, CT scan of the lumbar spine is performed from the lower thoracic spine to the sacrum. Images for both examinations are reviewed in the axial, sagittal, and coronal planes. IV contrast was administered without complication. A dose lowering technique was utilized adhering to the principles of ALARA. CT DOSE: 857.35 mGy.cm FINDINGS: Lung bases: The heart is mildly enlarged and without pericardial effusion. Pacemaker leads are noted. The lung bases are clear noting bibasilar scarring/atelectasis. Liver: The contrast-enhanced liver is normal in size, contour, and attenuation. Fatty infiltration is seen adjacent to the falciform ligament. There is no intrahepatic biliary ductal dilatation. The hepatic veins and portal veins are patent. Gallbladder: Unremarkable. Spleen: Normal in size and attenuation. Pancreas: Unremarkable. Adrenal glands: Unremarkable. Kidneys: The contrast enhanced kidneys demonstrate mild cortical atrophy and are without hydronephrosis. The kidneys enhance symmetrically. Scattered subcentimeter cortical hypodensities likely represent cysts but are too small for definitive characterization. Abdominal vasculature: The abdominal aorta is normal in course and caliber noting advanced atherosclerotic calcification. Bowel: There is advanced colonic diverticulosis without CT evidence of acute diverticulitis. No bowel obstruction is seen. Moderate fecal retention is present throughout the colon. The appendix is well-visualized and normal. Peritoneum: There is no intraperitoneal free air or abdominal ascites. There is a fat-containing umbilical hernia. Lymphadenopathy: None. Pelvic viscera: The bladder wall appears circumferentially thickened. The uterus is surgically absent. No adnexal lesion is seen. Skeletal structures: The skeletal structures are osteopenic. See below for dedi cated discussion of the lumbar spine. Acute left sacral alar fracture is unchanged from 04/13/2022. The remainder of the bony pelvis in the proximal femora appear intact No lytic or blastic lesions are seen. LUMBAR SPINE: There is a moderate chronic compression deformity of L3. Vertebral body height is otherwise maintained throughout the lumbar spine. Alignment is preserved. There is postoperative change from laminectomy and posterior fusion at L4-S1. Interpedicular screws are present at all levels. Lucency around the ventricular screws and L4 suggests loosening. Anterior and lateral marginal osteophytes are seen throughout. The transverse processes are intact. There is no evidence of spondylolysis. Facet arthropathy is noted in the lower lumbar region. There is postoperative change from discectomy at L4-L5 and L5-S1. Mild to moderate disc space narrowing is seen at the remaining lumbar levels. There is fatty atrophy of the paraspinous musculature. Postoperative change is seen posterior to the thecal sac at the operative levels. IMPRESSION: 1. There is no evidence of solid organ injury in the abdomen or pelvis. 2. There is no evidence of acute fracture or malalignment involving the lumbar spine. 3. An acute left sacral alar fracture is unchanged from the pelvic CT performed 2 days ago. 4. Advanced colonic diverticulosis without CT evidence of acute diverticulitis. 5. Lumbosacral spondylosis with postoperative change and a chronic compression deformity of L3 is above. This is similar to previous. 6. Lucency around the interpedicular screws in L4 suggests loosening. 7. The bladder wall appears circumferentially thickened. Correlate with clinical findings and urinalysis. 8. Additional findings as above. ACT 112: Negative or not required by law. Electronically signed by: Jonathan Powers M.D. 04/16/2022 3:58 PM Chest X-Ray 04/16/22 14:11 SINGLE VIEW CHEST CLINICAL HISTORY: Atypical chest pain. FINDINGS: An AP, portable, upright chest radiograph is compared to study dated 07/06/2018. A 2-lead cardiac pacemaker is unchanged in position. The heart is enlarged noting atherosclerotic calcification of the thoracic aorta. The pulmonary vasculature is noncongested. Chronic interstitial thickening is similar to previous. There is bibasilar scarring/atelectasis. No airspace cons olidation or large pleural effusion is identified. No pneumothorax is seen. The skeletal structures are osteopenic. The bony thorax is grossly intact. IMPRESSION: 1. Cardiomegaly and cardiac pacemaker without radiographic evidence of congestive failure. 2. No airspace consolidation or large pleural effusion is identified. ACT 112: Negative or not required by law. Electronically signed by: Jonathan Powers M.D. 04/16/2022 2:[address] 04/16/22 14:11 CT SCAN OF THE BRAIN WITHOUT IV CONTRAST CLINICAL HISTORY: Fall. COMPARISON STUDY: CT of the brain dated 04/13/2022. TECHNIQUE: Unenhanced axial CT scan of the brain is performed from the vertex to the skull base. A dose lowering technique was utilized adhering to the principles of ALARA. There FINDINGS: Brain parenchyma: There is age-related involutional change noting mild to moderate subcortical and periventricular microangiopathic disease. There is no hemorrhage, mass effect, or evidence of acute territorial ischemia by CT criteria. Mcmanus-white matter differentiation is preserved. No extra-axial fluid collection is seen. Ventricles, sulci, cisterns: Prominent secondary to involutional change. Intracranial vasculature: There is atherosclerotic calcification of the cavernous carotid and vertebral arteries. Calvarium: The skeletal structures are osteopenic. No depressed calvarial fracture is identified. Sinuses and mastoids: The visualized paranasal sinuses are clear. The mastoid air cells are well pneumatized. Orbits: The bony orbits are grossly intact. IMPRESSION: There is no hemorrhage, mass effect, or evidence of acute territorial ischemia by CT criteria. ACT 112: Negative or not required by law. Electronically signed by: Jonathan Powers M.D. 04/16/2022 3:[address] 04/16/22 14:11 CT SCAN OF THE ABDOMEN AND PELVIS WITH IV CONTRAST; CT SCAN OF THE LUMBAR SPINE WITH IV CONTRAST CLINICAL HISTORY: Fall. Left hip and low back pain. COMPARISON STUDY: Abdominal CT dated 07/06/2018. Pelvic CT dated 04/13/2022. CT scan of the lumbar spine dated 04/23/2020. TECHNIQUE: Following the IV administration of 94 cc of Optiray 320, CT scan of the abdomen and pelvis is performed from the lung bases to the proximal femora. Additionally, CT scan of the lumbar spine is performed from the lower thoracic spine to the sacrum. Images for both examinations are reviewed in the axial, sagittal, and coronal planes. IV contrast was administered without complication. A dose lowering technique was utilized adhering to the principles of ALARA. CT DOSE: 857.35 mGy.cm FINDINGS: Lung bases: The heart is mildly enlarged and without pericardial effusion. Pacemaker leads are noted. The lung bases are clear noting bibasilar scarring/atelectasis. Liver: The contrast-enhanced liver is normal in size, contour, and attenuation. Fatty infiltration is seen adjacent to the falciform ligament. There is no intrahepatic biliary ductal dilatation. The hepatic veins and portal veins are patent. Gallbladder: Unremarkable. Spleen: Normal in size and attenuation. Pancreas: Unremarkable. Adrenal glands: Unremarkable. Kidneys: The contrast enhanced kidneys demonstrate mild cortical atrophy and are without hydronephrosis. The kidneys enhance symmetrically. Scattered subcentimeter cortical hypodensities likely represent cysts but are too small for definitive characterization. Abdominal vasculature: The abdominal aorta is normal in course and caliber noting advanced atherosclerotic calcification. Bowel: There is advanced colonic diverticulosis without CT evidence of acute div erticulitis. No bowel obstruction is seen. Moderate fecal retention is present throughout the colon. The appendix is well-visualized and normal. Peritoneum: There is no intraperitoneal free air or abdominal ascites. There is a fat-containing umbilical hernia. Lymphadenopathy: None. Pelvic viscera: The bladder wall appears circumferentially thickened. The uterus is surgically absent. No adnexal lesion is seen. Skeletal structures: The skeletal structures are osteopenic. See below for dedicated discussion of the lumbar spine. Acute left sacral alar fracture is unchanged from 04/13/2022. The remainder of the bony pelvis in the proximal femora appear intact No lytic or blastic lesions are seen. LUMBAR SPINE: There is a moderate chronic compression deformity of L3. Vertebral body height is otherwise maintained throughout the lumbar spine. Alignment is preserved. There is postoperative change from laminectomy and posterior fusion at L4-S1. Interpedicular screws are present at all levels. Lucency around the ventricular screws and L4 suggests loosening. Anterior and lateral marginal osteophytes are seen throughout. The transverse processes are intact. There is no evidence of spondylolysis. Facet arthropathy is noted in the lower lumbar region. There is postoperative change from discectomy at L4-L5 and L5-S1. Mild to moderate disc space narrowing is seen at the remaining lumbar levels. There is fatty atrophy of the paraspinous musculature. Postoperative change is seen posterior to the thecal sac at the operative levels. IMPRESSION: 1. There is no evidence of solid organ injury in the abdomen or pelvis. 2. There is no evidence of acute fracture or malalignment involving the lumbar spine. 3. An acute left sacral alar fracture is unchanged from the pelvic CT performed 2 days ago. 4. Advanced colonic diverticulosis without CT evidence of acute diverticulitis. 5. Lumbosacral spondylosis with postoperative change and a chronic compression deformity of L3 is above. This is similar to previous. 6. Lucency around the interpedicular screws in L4 suggests loosening. 7. The bladder wall appears circumferentially thickened. Correlate with clinical findings and urinalysis. 8. Additional findings as above. ACT 112: Negative or not required by law. Electronically signed by: Jonathan Powers M.D. 04/16/2022 3:58 PM ECG Data Attestation: I personally reviewed and interpreted this ECG as follows: Indication: + weakness Rate (beats per minute): 65 Rhythm: + normal sinus ECG Intervals/blocks: + First degree AV block, + Normal QRS, + Normal QT and + Normal CA ECG [place]: + Normal ECG ST segments: + Normal ST segments ECG Findings: + Poor R wave progression Comparison ECG Date: from (07/13/18) Change: no significant change MDM Narrative This patient comes in as scribed above she suffered a mechanical fall on Sunday and continues have pain in her hip and back mostly with movement. She is on aspirin but no other blood thinners. She looks well and she does not think she hit her head but does have a headache. IV access established she was placed on a rehabilitation team lead. Multiple blood testing EKG was obtained. I did order CAT scan of her head as well as CT of the abdomen pelvis and lumbar spine to evaluate for traumatic injuries. She was reassessed frequently. EKG does not suggest acute ischemia or arrhythmia. Troponin is also normal. She has no severe electrolyte or metabolic abnormalities. No significant anemia. Shee has nothing suggest infection. Imaging shows a sacral fracture but no other acute injuries. She was here several days ago for this and continues to have pain and difficulty with ambulating. she was given IV morphine and IV Zofran and I do think needs to be admitted for pain management and possible placement she is having hard time getting around at home secondary to the pain. COVID testing was negative. I have consulted the hospitalist to see her for these measures. Continuous cardiac monitoring: An order was placed in the EMR for continuous cardiac monitoring. Upon my interpretation she was noted to be normal sinus rhythm rate of 60. Impression & Plan Closed sacral fracture, Fall, Atrial fibrillation, Back pain, Acute hip pain, Ambulatory dysfunction Discharge Plan Visit Data Chief Complaint: Fall Stated Complaint: FELL - 04/11 AND PAIN IS GETTING WORSE LOW BACK/HIP ED Provider: David Barr Discharge Problem: Closed sacral fracture, Fall, Atrial fibrillation, Back pain, Acute hip pain, Ambulatory dysfunction Patient Disposition: Admitted As Inpatient Discharge Instructions Interventions: ED Discharge Assessment Last Done: 04/16/22 17:22
[2022-04-16 14:34] LABS: Basophils # (auto) 0.06 K/uL (0-0.2); Eosinophils # (auto) 0.14 K/uL (0-0.50); Eosinophils % (auto) 2.3 %; Hematocrit (blood only) 38.3 % (34.1-44.9); Hemoglobin 12.5 g/dl (12.0-16.0); Immature Granulocytes # (auto) 0.01 K/uL (0.00-0.02); Immature Granulocytes % (auto) 0.2 %; Lymphocytes # (auto) 1.28 K/uL (1.2-3.4); Lymphocytes % (auto) 21.1 %; Mean Corpuscular Hemoglobin 30.9 pg (25.0-34.0); Mean Corpuscular Hgb Conc 32.6 g/dL (32.0-36.0); Mean Corpuscular Volume 94.8 fL (80.0-100.0); Monocytes # (auto) 0.69 K/uL (0.24-0.82); Monocytes % (auto) 11.4 %; Neutrophils # (auto) 3.89 K/uL (1.4-6.5); Platelet Count 163 K/uL (130-400); RDW Standard Deviation 42.4 fL (36.4-46.3); Red Blood Count 4.04 M/uL (3.93-5.22); White Blood Count 6.07 K/ul (4.8-10.8)
[2022-04-16 15:01] LABS: Albumin Globulin Ratio 1.5 (0.9-2); Albumin Level 3.7 gm/dl (3.4-5.0); BUN Creatinine Ratio 18.3 (10-20); Bilirubin,Total 0.9 mg/dl (0.2-1.0); Calcium 8.9 mg/dl (8.5-10.1); Est GFR (African American) 91.9 ml/min; Est GFR (Non-African American) 79.3 ml/min; Globulin 2.5 gm/dl (2.5-4.0); Potassium 4.1 mmol/L (3.5-5.1); Total Protein 6.2 gm/dl (6.0-8.3); Troponin I High Sensitivity 5.1 pg/ml (0-14)
--- NOTE | 2022-04-16 15:01 | XRay Report ---
SINGLE VIEW CHEST CLINICAL HISTORY: Atypical chest pain. FINDINGS: An AP, portable, upright chest radiograph is compared to study dated 07/06/2018. A 2-lead ca rdiac pacemaker is unchanged in position. The heart is enlarged noting atherosclerotic calcification of the thoracic aorta. The pulmonary vasculature is noncongested. Chronic interstitial thickening is similar to previous. There is bibasilar scarring/atelectasis. No airspace consolidation or large pleu ral effusion is identified. No pneumothorax is seen. The skeletal structures are osteopenic. The bony thorax is grossly intact. IMPRESSION: 1. Cardiomegaly and cardiac pacemaker without radiographic evidence of congestive failure. 2. No airspace consolidation or large pleural effusion is identified. ACT 112: Negative or not required by law. Electronically signed by: Jonathan Powers M.D. 04/16/2022 2:59 PM
[2022-04-16] MEDS ORDERED: OPTIRAY 320 100ml IV ONE (15:35)
--- NOTE | 2022-04-16 15:47 | CT Scan Report ---
CT SCAN OF THE BRAIN WITHOUT IV CONTRAST CLINICAL HISTORY: Fall. COMPARISON STUDY: CT of the brain dated 04/13/2022. TECHNIQUE: Unenhanced axial CT scan of the brain is performed from the vertex to the skull base. A do se lowering technique was utilized adhering to the principles of ALARA. 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 There is no hemorrhage, mass effect, or evidence of acute ter ritorial ischemia by CT criteria. Mcmanus-white matter differentiation is preserved. No extra-axial flui d collection is seen. Ventricles, sulci, cisterns: Prominent secondary to involutional change. Intracranial vasculature: There is atherosclerotic calcification of the cavernous carotid and vertebr al arteries. Calvarium: The skeletal structures are osteopenic. No depressed calvarial fracture is identified. Sinuses and mastoids: The visualized paranasal sinuses are clear. The mastoid air cells are well pneu matized. Orbits: The bony orbits are grossly intact. IMPRESSION: There is no hemorrhage, mass effect, or evidence of acute territorial ischemia by CT alia weber. ACT 112: Negative or not required by law. Electronically signed by: Jonathan Powers M.D. 04/16/2022 3:44 PM
--- NOTE | 2022-04-16 16:01 | CT Scan Report ---
CT SCAN OF THE ABDOMEN AND PELVIS WITH IV CONTRAST; CT SCAN OF THE LUMBAR SPINE WITH IV CONTRAST CLINICAL HISTORY: Fall. Left hip and low back pain. COMPARISON STUDY: Abdominal CT dated 07/06/2018. Pelvic CT dated 04/13/2022. CT scan of the lumbar spi ne dated 04/23/2020. TECHNIQUE: Following the IV administration of 94 cc of Optiray 320, CT scan of the abdomen and pelvi s is performed from the lung bases to the proximal femora. Additionally, CT scan of the lumbar spine is performed from the lower thoracic spine to the sacrum. Images for both examinations are reviewed i n the axial, sagittal, and coronal planes. IV contrast was administered without complication. A dose lowering technique was utilized adhering to the principles of ALARA. CT DOSE: 857.35 mGy.cm FINDINGS: Lung bases: The heart is mildly enlarged and without pericardial effusion. Pacemaker leads are noted. The lung bases are clear noting bibasilar scarring/atelectasis. Liver: The contrast-enhanced liver is normal in size, contour, and attenuation. Fatty infiltration is seen adjacent to the falciform ligament. There is no intrahepatic biliary ductal dilatation. The hep atic veins and portal veins are patent. Gallbladder: Unremarkable. Spleen: Normal in size and attenuation. Pancreas: Unremarkable. Adrenal glands: Unremarkable. Kidneys: The contrast enhanced kidneys demonstrate mild cortical atrophy and are without hydronephros is. The kidneys enhance symmetrically. Scattered subcentimeter cortical hypodensities likely represen t cysts but are too small for definitive characterization. Abdominal vasculature: The abdominal aorta is normal in course and caliber noting advanced atheroscle rotic calcification. Bowel: There is advanced colonic diverticulosis without CT evidence of acute diverticulitis. No bowel obstruction is seen. Moderate fecal retention is present throughout the colon. The appendix is well -visualized and normal. Peritoneum: There is no intraperitoneal free air or abdominal ascites. There is a fat-containing umbi lical hernia. Lymphadenopathy: None. Pelvic viscera: The bladder wall appears circumferentially thickened. The uterus is surgically absent . No adnexal lesion is seen. Skeletal structures: The skeletal structures are osteopenic. See below for dedicated discussion of th e lumbar spine. Acute left sacral alar fracture is unchanged from 04/13/2022. The remainder of the bon y pelvis in the proximal femora appear intact No lytic or blastic lesions are seen. LUMBAR SPINE: There is a moderate chronic compression deformity of L3. Vertebral body height is other ceballos maintained throughout the lumbar spine. Alignment is preserved. There is postoperative change fr om laminectomy and posterior fusion at L4-S1. Interpedicular screws are present at all levels. Lucenc y around the ventricular screws and L4 suggests loosening. Anterior and lateral marginal osteophytes are seen throughout. The transverse processes are intact. There is no evidence of spondylolysis. Face t arthropathy is noted in the lower lumbar region. There is postoperative change from discectomy at L 4-L5 and L5-S1. Mild to moderate disc space narrowing is seen at the remaining lumbar levels. There i s fatty atrophy of the paraspinous musculature. Postoperative change is seen posterior to the thecal sac at the operative levels. IMPRESSION: 1. There is no evidence of solid organ injury in the abdomen or pelvis. 2. There is no evidence of acute fracture or malalignment involving the lumbar spine. 3. An acute left sacral alar fracture is unchanged from the pelvic CT performed 2 days ago. 4. Advanced colonic diverticulosis without CT evidence of acute diverticulitis. 5. Lumbosacral spondylosis with postoperative change and a chronic compression deformity of L3 is abo ve. This is similar to previous. 6. Lucency around the interpedicular screws in L4 suggests loosening. 7. The bladder wall appears circumferentially thickened. Correlate with clinical findings and urinaly sis. 8. Additional findings as above. ACT 112: Negative or not required by law. Electronically signed by: Jonathan Powers M.D. 04/16/2022 3:58 PM
[2022-04-16] MEDS ORDERED: MoRPHine SULFATE 2 MG/ML CARP IV STA (16:09)
[2022-04-16] MEDS ORDERED: ONDANSETRON INJ 2 MG/ML 2 ML VIAL IV STA (16:09)
--- NOTE | 2022-04-16 16:24 | History & Physical Report ---
Date of Service April 16, 2022 Assessment & Plan (1) Sacral fracture: (2) Ambulatory dysfunction: (3) Fall: (4) Acute hip pain: Plan: - Admit to med surg -CT images reviewed showing nondisplaced left sacral ala fracture -PT/OT ordered for possible rehab/placement after hospital stay -Pain control with Tylenol [id number], oxycodone IR q4H prn, IV morphine for breakthrough pain, lidocaine patch, heat pad topically -bowel regimen has been ordered -Fall precautions - Discussed that this would not be ammendable to surgical intervention, but may consider ortho consultation for recs (5) CAD (coronary artery disease): (6) Status post cardiac pacemaker procedure: (7) History of IA (myocardial infarction): (8) Hypertension: (9) Atrial fibrillation: Plan: - Hx of Watchman in Aug 2021, pacemaker in situ inserted many years ago - Previously followed with Dr. Beaver in [place], scheduled to see Dr. Orourke and transfer care to [facility] cardiology with an appointment next month - Continue medications including losartan, verapamil, atorvastatin, aspirin 81 mg, and lasix (10) Anemia: Plan: - Iron deficiency anemia, hgb 12.5 on admission, may continue iron supplementation DVT ppx: - teds, scds, heparin subq CODE: Full code Dispo: From home, likely to remain in the hospital x 1-2 days, CM to assist with discharge planning and possible placement versus rehab History of Present Illness Chief Complaint: Fall, pain R leg/hip Primary Care Provider: Tramaine Mcdonald MD This is an 81 yo F with PMhx of A. fib, CAD, cardiac pacemaker in situ, watchman procedure, HTN, HLD, dementia, lymphedema of lower extremities, iron deficiency anemia, GERD, asthma who presents after mechanical fall she sustained on 04/13/2022. A CT of the pelvis was conducted at that time when she was seen here in the ER which revealed a subtle nondisplaced fracture of the left sacral yael. She was discharged home with pain management. She presents today due to worsening left-sided hip pain radiating into her lower back. Denies any bowel or bladder incontinence, or saddle anesthesia. She had been attempting to medicate her pain at home with 2 tylenol tablets every 4-6 hours but it was not providing relief. She has been ambulating even today, but the pain became so severe that she wasn't able walk today unless was using a walker. Pt walked without issues prior to this. She lives alone but her sister lives next door. Pt denies any other acute complaints. Allergies Allergy/AdvReac Type Severity Reaction Status Date / Time adhesive Allergy Intermediate RASH Verified 04/16/22 15:50 cat dander Allergy Mild itchy,watery Verified 04/16/22 15:50 eyes grass pollen-perennial rye, Allergy Mild itchy,watery Verified 04/16/22 15:50 standar eyes NSAIDS (Non-Steroidal AdvReac Severe Gastrointestinal Verified 04/16/22 15:50 Anti-Inflamma Upset nafcillin AdvReac Intermediate BODY Verified 04/16/22 15:50 WEAKENED,NAUSEA VOMITING,UNABLE TO FUNCTION Sulfa (Sulfonamide AdvReac Intermediate G I UPSET Verified 04/16/22 15:50 Antibiotics) Home Medications Medication Instructions Recorded Confirmed Type zolpidem 5 mg tablet (Ambien) 5 - 10 mg PO HS PRN Sleep #0 tabs 07/12/14 04/16/22 History atorvastatin 20 mg tablet 20 mg PO QPM #0 tabs 06/02/15 04/16/22 History furosemide 20 mg tablet 20 mg PO QAM #0 tabs 05/11/17 04/16/22 History alendronate 10 mg tablet 10 mg PO WK 03/30/22 04/16/22 History aspirin 81 mg tablet,delayed 81 mg PO DAILY 03/30/22 04/16/22 History release (Adult Low Dose Aspirin) cetirizine 10 mg tablet (Zyrtec) 10 mg PO DAILY PRN Congestion 03/30/22 04/16/22 History ferrous sulfate 325 mg (65 mg 325 mg PO DAILY 03/30/22 04/16/22 History iron) tablet fluticasone propionate 50 1 spray intranasal DAILY 03/30/22 04/16/22 History mcg/actuation nasal spray,suspension losartan 25 mg tablet (Cozaar) 25 mg PO DAILY 03/30/22 04/16/22 History pantoprazole 40 mg tablet,delayed 40 mg PO DAILY 03/30/22 04/16/22 History release (Protonix) verapamil 180 mg tablet,extended 180 mg PO DAILY 04/16/22 04/16/22 History release Past Med/Surg History Medical History (Updated 04/16/22 @ 16:40 by Bev Blancas PA-C) Asthma STABLE Atrial fibrillation CAD (coronary artery disease) STENT X 1 (1999) Degenerative disc disease Depression History of IA (myocardial infarction) 1999 Hx of migraines Hypertension Pacemaker SICK SINUS SYNDROME/TACHYBRADY (2014); LAST CHECK 04/24/18 Pulmonary hypertension TIA (transient ischemic attack) 2014 Surgical History History of cardiac cath 1999 (STENT X 1), 2008 (NO STENTS) History of cervical discectomy History of colonoscopy History of lumbar surgery FUSION/LAMINECTOMY History of tonsillectomy History of tooth extraction History of total knee replacement LEFT TKA= 06/08/17= SAB + PNB R TKA 06/2018 Status post cardiac pacemaker procedure Family History Other No pertinent family history Social History Smoking Status: Never smoker Second Hand Exposure: No; Hx Alcohol Use: No Hx Substance Use: No Preferred Language: British Communication Ability: Effective Visual Impairment: Limited Hearing Ability: Normal Cataract Lens Generator Required: No Beliefs That Will Affect Care: None Current Living Situation: Alone Feels Safe at Home: Yes Safety Concerns: Feels Safe At This Time Assistive Devices: Denture - Upper and Glasses Review of Systems Review of Systems: Constitutional: No fever, sweats or chills Eyes: No diplopia, no worsening or blurred vision ENT: normal hearing, no trouble swallowing Respiratory: No cough, sputum, dyspnea at rest or on exertion Cardiovascular: No chest pain, tightness or palpitations Abdomen: No pain, nausea, vomiting, diarrhea or constipation Musculoskeletal: Pelvic pain as per HPI wrapping into the left low back , no other joint pain, calf pain, swelling Neurologic: No weakness, numbness/tingling, or balance problems Psychiatric: No anxiety or depression Skin: No rash or itch Physical Exam Physical Exam: General: awake, alert, no apparent distress Head: Normocephalic, atraumatic ENT: PERRL, EOMI, no pharyngeal exudate, mucous membranes moist Chest: Clear to auscultation, on room air, no adventitious breath sounds, she is able to roll onto her side left without much difficulty Cardiac: Regular rate and rhythm, no murmur, no JVD, normal peripheral pulses, good capillary refill Abdominal: NABS x 4 quadrants, soft, nondistended, nontender to palpation, no rebound or guarding, no pain with hip palpation anteriorly Extremities: Normal inspection, no peripheral edema or erythema, calfs nontender to palpation Psych: Normal mood and affect Neuro: AAO x 3, strength intact bilaterally and rated 5/5 in upper extremities, 4/5 in lower extremities due to pain, no gross motor deficits, speech is clear, no peripheral sensory deficits Results & Data Results & Data ([facility]) Vital Signs (Past 12 Hours) Vital Signs Temp Pulse Resp BP Pulse Ox O2 Del Method 04/16/22 15:20 63 15 97 04/16/22 15:10 59 L 16 95 04/16/22 15:00 62 18 97 04/16/22 15:00 192/85 H 04/16/22 14:50 60 13 98 04/16/22 14:40 65 19 97 04/16/22 14:30 61 19 185/85 H 98 04/16/22 14:00 68 14 182/88 H 97 04/16/22 14:25 98 Room Air 04/16/22 14:00 60 12 182/88 H 98 04/16/22 13:32 37.0 C 71 16 171/87 H 97 Laboratory Results 04/16/22 04/16/22 14:24 14:24 WBC 6.07 RBC 4.04 Hgb 12.5 Hct 38.3 MCV 94.8 MCH 30.9 MCHC 32.6 RDW Std Deviation 42.4 RDW Coeff of Bradford 12.0 Plt Count 163 MPV 10.0 Immature Gran % (Auto) 0.2 Neut % (Auto) 64.0 Lymph % (Auto) 21.1 Anson % (Auto) 11.4 Eos % (Auto) 2.3 Baso % (Auto) 1.0 Neut # (Auto) 3.89 Lymph # (Auto) 1.28 Anson # (Auto) 0.69 Eos # (Auto) 0.14 Baso # (Auto) 0.06 Immature Gran # (Auto) 0.01 Sodium 138 Potassium 4.1 Chloride 104 Carbon Dioxide 29 Anion Gap 5 BUN 13 Creatinine 0.71 Est Cr Clr Drug Dosing 55.0 Est GFR ( Amer) 91.9 Est GFR (Non-Af Amer) 79.3 BUN/Creatinine Ratio 18.3 Glucose 104 H Calcium 8.9 Total Bilirubin 0.9 AST 18 ALT 9 Alkaline Phosphatase 83 Troponin I High Sens 5.1 Total Protein 6.2 Albumin 3.7 Globulin 2.5 Albumin/Globulin Ratio 1.5 Lipase 29 Diagnostic Findings Abdomen/Pelvis CT 04/16/22 14:11 CT SCAN OF THE ABDOMEN AND PELVIS WITH IV CONTRAST; CT SCAN OF THE LUMBAR SPINE WITH IV CONTRAST CLINICAL HISTORY: Fall. Left hip and low back pain. COMPARISON STUDY: Abdominal CT dated 07/06/2018. Pelvic CT dated 04/13/2022. CT scan of the lumbar spine dated 04/23/2020. TECHNIQUE: Following the IV administration of 94 cc of Optiray 320, CT scan of the abdomen and pelvis is performed from the lung bases to the proximal femora. Additionally, CT scan of the lumbar spine is performed from the lower thoracic spine to the sacrum. Images for both examinations are reviewed in the axial, sagittal, and coronal planes. IV contrast was administered without complication. A dose lowering technique was utilized adhering to the principles of ALARA. CT DOSE: 857.35 mGy.cm FINDINGS: Lung bases: The heart is mildly enlarged and without pericardial effusion. Pacemaker leads are noted. The lung bases are clear noting bibasilar scarring/atelectasis. Liver: The contrast-enhanced liver is normal in size, contour, and attenuation. Fatty infiltration is seen adjacent to the falciform ligament. There is no intrahepatic biliary ductal dilatation. The hepatic veins and portal veins are patent. Gallbladder: Unremarkable. Spleen: Normal in size and attenuation. Pancreas: Unremarkable. Adrenal glands: Unremarkable. Kidneys: The contrast enhanced kidneys demonstrate mild cortical atrophy and are without hydronephrosis. The kidneys enhance symmetrically. Scattered subcentimeter cortical hypodensities likely represent cysts but are too small for definitive characterization. Abdominal vasculature: The abdominal aorta is normal in course and caliber noting advanced atherosclerotic calcification. Bowel: There is advanced colonic diverticulosis without CT evidence of acute diverticulitis. No bowel obstruction is seen. Moderate fecal retention is present throughout the colon. The appendix is well-visualized and normal. Peritoneum: There is no intraperitoneal free air or abdominal ascites. There is a fat-containing umbilical hernia. Lymphadenopathy: None. Pelvic viscera: The bladder wall appears circumferentially thickened. The uterus is surgically absent. No adnexal lesion is seen. Skeletal structures: The skeletal structures are osteopenic. See below for dedicated discussion of the lumbar spine. Acute left sacral alar fracture is unchanged from 04/13/2022. The remainder of the bony pelvis in the proximal femora appear intact No lytic or blastic lesions are seen. LUMBAR SPINE: There is a moderate chronic compression deformity of L3. Vertebral body height is otherwise maintained throughout the lumbar spine. Alignment is preserved. There is postoperative change from laminectomy and posterior fusion at L4-S1. Interpedicular screws are present at all levels. Lucency around the ventricular screws and L4 suggests loosening. Anterior and lateral marginal osteophytes are seen throughout. The transverse processes are intact. There is no evidence of spondylolysis. Facet arthropathy is noted in the lower lumbar region. There is postoperative change from discectomy at L4-L5 and L5-S1. Mild to moderate disc space narrowing is seen at the remaining lumbar levels. There is fatty atrophy of the paraspinous musculature. Postoperative change is seen posterior to the thecal sac at the operative levels. IMPRESSION: 1. There is no evidence of solid organ injury in the abdomen or pelvis. 2. There is no evidence of acute fracture or malalignment involving the lumbar spine. 3. An acute left sacral alar fracture is unchanged from the pelvic CT performed 2 days ago. 4. Advanced colonic diverticulosis without CT evidence of acute diverticulitis. 5. Lumbosacral spondylosis with postoperative change and a chronic compression deformity of L3 is above. This is similar to previous. 6. Lucency around the interpedicular screws in L4 suggests loosening. 7. The bladder wall appears circumferentially thickened. Correlate with clinical findings and urinalysis. 8. Additional findings as above. ACT 112: Negative or not required by law. Electronically signed by: Jonathan Powers M.D. 04/16/2022 3:58 PM Chest X-Ray 04/16/22 14:11 SINGLE VIEW CHEST CLINICAL HISTORY: Atypical chest pain. FINDINGS: An AP, portable, upright chest radiograph is compared to study dated 07/06/2018. A 2-lead cardiac pacemaker is unchanged in position. The heart is enlarged noting atherosclerotic calcification of the thoracic aorta. The pulmonary vasculature is noncongested. Chronic interstitial thickening is similar to previous. There is bibasilar scarring/atelectasis. No airspace consolidation or large pleural effusion is identified. No pneumothorax is seen. The skeletal structures are osteopenic. The bony thorax is grossly intact. IMPRESSION: 1. Cardiomegaly and cardiac pacemaker without radiographic evidence of congestive failure. 2. No airspace consolidation or large pleural effusion is identified. ACT 112: Negative or not required by law. Electronically signed by: Jonathan Powers M.D. 04/16/2022 2:[address] 04/16/22 14:11 CT SCAN OF THE BRAIN WITHOUT IV CONTRAST CLINICAL HISTORY: Fall. COMPARISON STUDY: CT of the brain dated 04/13/2022. TECHNIQUE: Unenhanced axial CT scan of the brain is performed from the vertex to the skull base. A dose lowering technique was utilized adhering to the principles of ALARA. There FINDINGS: Brain parenchyma: There is age-related involutional change noting mild to moderate subcortical and periventricular microangiopathic disease. There is no hemorrhage, mass effect, or evidence of acute territorial ischemia by CT criteria. Mcmanus-white matter differentiation is preserved. No extra-axial fluid collection is seen. Ventricles, sulci, cisterns: Prominent secondary to involutional change. Intracranial vasculature: There is atherosclerotic calcification of the cavernous carotid and vertebral arteries. Calvarium: The skeletal structures are osteopenic. No depressed calvarial fracture is identified. Sinuses and mastoids: The visualized paranasal sinuses are clear. The mastoid air cells are well pneumatized. Orbits: The bony orbits are grossly intact. IMPRESSION: There is no hemorrhage, mass effect, or evidence of acute territorial ischemia by CT criteria. ACT 112: Negative or not required by law. Electronically signed by: Jonathan Powers M.D. 04/16/2022 3:[address] 04/16/22 14:11 CT SCAN OF THE ABDOMEN AND PELVIS WITH IV CONTRAST; CT SCAN OF THE LUMBAR SPINE WITH IV CONTRAST CLINICAL HISTORY: Fall. Left hip and low back pain. COMPARISON STUDY: Abdominal CT dated 07/06/2018. Pelvic CT dated 04/13/2022. CT scan of the lumbar spine dated 04/23/2020. TECHNIQUE: Following the IV administration of 94 cc of Optiray 320, CT scan of the abdomen and pelvis is performed from the lung bases to the proximal femora. Additionally, CT scan of the lumbar spine is performed from the lower thoracic spine to the sacrum. Images for both examinations are reviewed in the axial, sagittal, and coronal planes. IV contrast was administered without complication. A dose lowering technique was utilized adhering to the principles of ALARA. CT DOSE: 857.35 mGy.cm FINDINGS: Lung bases: The heart is mildly enlarged and without pericardial effusion. Pacemaker leads are noted. The lung bases are clear noting bibasilar scarring/atelectasis. Liver: The contrast-enhanced liver is normal in size, contour, and attenuation. Fatty infiltration is seen adjacent to the falciform ligament. There is no intrahepatic biliary ductal dilatation. The hepatic veins and portal veins are patent. Gallbladder: Unremarkable. Spleen: Normal in size and attenuation. Pancreas: Unremarkable. Adrenal glands: Unremarkable. Kidneys: The contrast enhanced kidneys demonstrate mild cortical atrophy and are without hydronephrosis. The kidneys enhance symmetrically. Scattered subcentimeter cortical hypodensities likely represent cysts but are too small for definitive characterization. Abdominal vasculature: The abdominal aorta is normal in course and caliber noting advanced atherosclerotic calcification. Bowel: There is advanced colonic diverticulosis without CT evidence of acute diverticulitis. No bowel obstruction is seen. Moderate fecal retention is present throughout the colon. The appendix is well-visualized and normal. Peritoneum: There is no intraperitoneal free air or abdominal ascites. There is a fat-containing umbilical hernia. Lymphadenopathy: None. Pelvic viscera: The bladder wall appears circumferentially thickened. The uterus is surgically absent. No adnexal lesion is seen. Skeletal structures: The skeletal structures are osteopenic. See below for dedicated discussion of the lumbar spine. Acute left sacral alar fracture is unchanged from 04/13/2022. The remainder of the bony pelvis in the proximal femora appear intact No lytic or blastic lesions are seen. LUMBAR SPINE: There is a moderate chronic compression deformity of L3. Vertebral body height is otherwise maintained throughout the lumbar spine. Alignment is preserved. There is postoperative change from laminectomy and posterior fusion a t L4-S1. Interpedicular screws are present at all levels. Lucency around the ventricular screws and L4 suggests loosening. Anterior and lateral marginal osteophytes are seen throughout. The transverse processes are intact. There is no evidence of spondylolysis. Facet arthropathy is noted in the lower lumbar region. There is postoperative change from discectomy at L4-L5 and L5-S1. Mild to moderate disc space narrowing is seen at the remaining lumbar levels. There is fatty atrophy of the paraspinous musculature. Postoperative change is seen posterior to the thecal sac at the operative levels. IMPRESSION: 1. There is no evidence of solid organ injury in the abdomen or pelvis. 2. There is no evidence of acute fracture or malalignment involving the lumbar spine. 3. An acute left sacral alar fracture is unchanged from the pelvic CT performed 2 days ago. 4. Advanced colonic diverticulosis without CT evidence of acute diverticulitis. 5. Lumbosacral spondylosis with postoperative change and a chronic compression deformity of L3 is above. This is similar to previous. 6. Lucency around the interpedicular screws in L4 suggests loosening. 7. The bladder wall appears circumferentially thickened. Correlate with clinical findings and urinalysis. 8. Additional findings as above. ACT 112: Negative or not required by law. Electronically signed by: Jonathan Powers M.D. 04/16/2022 3:58 PM Code Status & VTE Plan Code Status Full code - discussed with the patient at bedside Supervising Physician Co-Signing Physician Notes Patient was seen and examined independently at bedside. Chart reviewed. Case discussed with Bev HALL and agree with the documentation above. In summary, this is a 81 year old female who sustained mechanical fall 4 days back and was evaluated in the ED 2 days back and found to have acute left sacral alar fracture. Patient was discharged home from ED with recommendations for pain meds and ortho follow up. Patient has been taking extra strength tylenol 2 tabs round the clock but not helping her pain adequately and limiting her ambulation despite using walker, and hence came to the ED. In the ED, work up including CBC, BMP unremarkable, CT lumbar spine with no change from 2 days back. Denies any radiculopathy, numbness, weakness, tingling or bowel bladder incontinence, no red flag signs. On exam, BP elevated likely from pain, unclear if and which BP meds she took today. Otherwise lying comfortably in bed, AAO, chest clear, heart sounds normal, abd benign, LE lymphedema. Admit for pain management, PT eval and CM consult, might need placement. Consider ortho eval if needed but this would not be amenable to surgical intervention. Rest as per the note above. Daughter at bedside. (1) Acute hip pain Laterality: left Qualified Code(s): M25.552 - Pain in left hip (2) Anemia Anemia type: unspecified type Qualified Code(s): D64.9 - Anemia, unspecified (3) Atrial fibrillation Atrial fibrillation type: paroxysmal Qualified Code(s): I48.0 - Paroxysmal atrial fibrillation
[2022-04-16] MEDS ORDERED: ZOLPIDEM TARTRATE 5 MG TAB PO PRN (17:59)
[2022-04-16] MEDS ORDERED: ONDANSETRON INJ 2 MG/ML 2 ML VIAL IV PRN (17:59)
[2022-04-16] MEDS ORDERED: hydrALAZINE HCL 20 MG/ML VIAL IV PRN (17:59)
[2022-04-16] MEDS ORDERED: hydrALAZINE HCL 20 MG/ML VIAL IV STA (17:59)
[2022-04-16] MEDS ORDERED: MoRPHine SULFATE 4 MG/ML 1 ML CARP\\VIAL IV PRN (17:59)
[2022-04-16] MEDS ORDERED: POLYETHYLENE (MIRALAX) 17 GM PACK PO PRN (17:59)
[2022-04-16] MEDS ORDERED: MoRPHine SULFATE 2 MG/ML CARP IV PRN (17:59)
[2022-04-16] MEDS ORDERED: CETIRIZINE HCL 10 MG TABLET PO PRN (17:59)
[2022-04-16] MEDS: ACETAMINOPHEN 500 MG TAB PO SCH ×2 (18:26→21:34)
[2022-04-16] MEDS: LIDOCAINE 5% 1 PATCH TD SCH (19:30)
[2022-04-16] MEDS: oxyCODONE HCL IR 5 MG TAB (IMMEDIATE RELEASE) PO PRN (19:33)
[2022-04-16] MEDS: ATORVASTATIN 20 MG TAB PO SCH (19:34)
[2022-04-16] MEDS: HEPARIN SOD 5,000 UNIT/0.5 ML VIAL SQ SCH (21:04)
[2022-04-17] MEDS: oxyCODONE HCL IR 5 MG TAB (IMMEDIATE RELEASE) PO PRN ×3 (06:09→21:24)
[2022-04-17] MEDS: ACETAMINOPHEN 500 MG TAB PO SCH ×3 (06:09→22:01)
[2022-04-17] MEDS: PANTOprazole 40 MG TAB PO SCH (07:39)
[2022-04-17] MEDS: FUROSEMIDE 20 MG TAB PO SCH (07:39)
[2022-04-17] MEDS: LOSARTAN POTASSIUM 25 MG TAB PO SCH (07:39)
[2022-04-17] MEDS: FLUTICASONE PROPIONATE NA SPR 16 GM BTL SCH (07:39)
[2022-04-17] MEDS: ASPIRIN 81 MG ECTAB PO SCH (07:39)
[2022-04-17] MEDS: FERROUS SULFATE 325 MG TAB PO SCH (07:39)
[2022-04-17] MEDS: HEPARIN SOD 5,000 UNIT/0.5 ML VIAL SQ SCH ×2 (07:40→21:26)
[2022-04-17] MEDS: bisacodyL 5 MG TABEC PO SCH (08:18)
[2022-04-17] MEDS: VERAPAMIL HCL 180 MG TABCR PO SCH (08:18)
[2022-04-17] MEDS ORDERED: VERAPAMIL HCL 40 MG TAB PO SCH (09:00)
--- NOTE | 2022-04-17 12:34 | Electrocardiogram Report ---
Test Reason : Blood Pressure : / mmHG Vent. Rate : 065 BPM Atrial Rate : 065 BPM P-R Int : 236 ms QRS Dur : 094 ms QT Int : 428 ms P-R-T Axes : 074 -55 027 degrees QTc Int : 445 ms Poor data quality, interpretation may be adversely affected Sinus rhythm with 1st degree A-V block Atrial paced beats Left axis deviation Septal infarct , age undetermined T wave abnormality, consider anterior ischemia Abnormal ECG When compared with ECG of 13-JUL-2018 15:18, Septal infarct is now Present Confirmed by Wilman Boyle ([id number]) on 04/17/2022 12:34:15 PM Referred By: REFERRED SELF Confirmed By:Wilman Boyle
--- NOTE | 2022-04-17 16:39 | Orthopedic Consultation ---
Date of Service April 17, 2022 Assessment & Plan (1) Closed sacral fracture: -No acute surgical intervention -Agree with current pain control regimen, can consider tramadol prn at time of discharge -WBAT LLE; may use walker for assistance -PT/OT consult, may need inpatient rehab placement. -Rest of care per primary team Disposition: Stable from ortho standpoint for discharge pending PT/OT clearance. Can follow up with Dr. Brothers as an outpatient as needed if pain persists for > 2 months. Will sign off but available with questions. Discussed w/ Dr. Brothers who evaluated pt independently. History of Present Illness Reason for Consultation: L sacral fx . Requesting Physician: Lion Núñez MD . Attending Physician: Lion Núñez MD Pt is an 81 y/o/f with PMHx of A. fib, CAD, cardiac pacemaker in situ, watchman procedure, HTN, HLD, dementia, lymphedema of lower extremities, iron deficiency anemia, GERD, asthma who was admitted on 04/16/2022 d/t L sacral alar fracture. Pt originally suffered a mechanical fall at home on 04/11. She has ongoing posterior L hip pain and went to [facility] ED on 04/[address] imaging revealed a non-displaced L sacral alar fracture. She was discharged home and instructed to follow up with orthopedics as an outpatient. She had worsening L hip pain and returned to ED on 04/16 and admitted to hospitalist service. Orthopedics consulted for recommendations regarding her sacral fracture. Of note, pt does live alone and does not have a history of frequent falls. Lives next door to her sister, is ambulatory without use of assistive device at baseline. Seen at bedside. Pt resting comfortably. Indicates focal area of L posterior hip pain. Denies pain in lower back or pain radiating down L leg. Denies numbness/tingling, bowel/bladder incontinence, or subjective weakness in either leg. Allergies Allergy/AdvReac Type Severity Reaction Status Date / Time adhesive Allergy Intermediate RASH Verified 04/16/22 15:50 cat dander Allergy Mild itchy,watery Verified 04/16/22 15:50 eyes grass pollen-perennial rye, Allergy Mild itchy,watery Verified 04/16/22 15:50 standar eyes NSAIDS (Non-Steroidal AdvReac Severe Gastrointestinal Verified 04/16/22 15:50 Anti-Inflamma Upset nafcillin AdvReac Intermediate BODY Verified 04/16/22 15:50 WEAKENED,NAUSEA VOMITING,UNABLE TO FUNCTION Sulfa (Sulfonamide AdvReac Intermediate G I UPSET Verified 04/16/22 15:50 Antibiotics) Home Medications Medication Instructions Recorded Confirmed Type zolpidem 5 mg tablet (Ambien) 5 - 10 mg PO HS PRN Sleep #0 tabs 07/12/14 04/16/22 History atorvastatin 20 mg tablet 20 mg PO QPM #0 tabs 06/02/15 04/16/22 History furosemide 20 mg tablet 20 mg PO QAM #0 tabs 05/11/17 04/16/22 History alendronate 10 mg tablet 10 mg PO WK 03/30/22 04/16/22 History aspirin 81 mg tablet,delayed 81 mg PO DAILY 03/30/22 04/16/22 History release (Adult Low Dose Aspirin) cetirizine 10 mg tablet (Zyrtec) 10 mg PO DAILY PRN Congestion 03/30/22 04/16/22 History ferrous sulfate 325 mg (65 mg 325 mg PO DAILY 03/30/22 04/16/22 History iron) tablet fluticasone propionate 50 1 spray intranasal DAILY 03/30/22 04/16/22 History mcg/actuation nasal spray,suspension losartan 25 mg tablet (Cozaar) 25 mg PO DAILY 03/30/22 04/16/22 History pantoprazole 40 mg tablet,delayed 40 mg PO DAILY 03/30/22 04/16/22 History release (Protonix) verapamil 180 mg tablet,extended 180 mg PO DAILY 04/16/22 04/16/22 History release Past Med/Surg History Medical History (Updated 04/16/22 @ 21:43 by David Barr MD) Asthma STABLE Atrial fibrillation CAD (coronary artery disease) STENT X 1 (1999) Degenerative disc disease Depression History of VT (myocardial infarction) 1999 Hx of migraines Hypertension Pacemaker SICK SINUS SYNDROME/TACHYBRADY (2014); LAST CHECK 04/24/18 Pulmonary hypertension TIA (transient ischemic attack) 2014 Surgical History History of cardiac cath 1999 (STENT X 1), 2008 (NO STENTS) History of cervical discectomy History of colonoscopy History of lumbar surgery FUSION/LAMINECTOMY History of tonsillectomy History of tooth extraction History of total knee replacement LEFT TKA= 06/08/17= SAB + PNB R TKA 06/2018 Status post cardiac pacemaker procedure Family History Other No pertinent family history Social History Smoking Status: Never smoker Second Hand Exposure: No; Hx Alcohol Use: No Hx Substance Use: No Preferred Language: Japanese Communication Ability: Effective Visual Impairment: Limited Hearing Ability: Normal Expanded Duty Dental Assistant Required: No Beliefs That Will Affect Care: None marital status: / Current Living Situation: Alone How many Children do You have: 2 Feels Safe at Home: Yes Safety Concerns: Feels Safe At This Time Assistive Devices: None Review of Systems All systems reviewed & are unremarkable except as noted in HPI & below. Physical Exam General: Pleasant 81 y/o/f resting in bed in NAD. AAO x 4 LLE: Focally tender over L sacroiliac joint. No local swelling/bruising. She has full hip/knee/ankle range of motion. She has 4/5 strength with bilateral hip flexion/ext, knee flexion/ext, ankle flexion/ext. Distally N/V/I. Leg lengths equal. . Results & Data Results & Data Laboratory Results Reviewed . Diagnostic Findings Reviewed . PG Care Time/CCT Total # of Minutes Spent Total Time Spent with Patient: Total time spent is greater than 50% in coordination of care (as documented) at patient's floor/unit and/or counseling patient: Coding Level of Care Code 13708 Inpt Consult Level 3 Diagnoses Closed sacral fracture S32.10XA Encounter type: initial encounter Zone of sacrum fracture: unspecified portion of sacrum (1) Closed sacral fracture Encounter type: initial encounter Zone of sacrum fracture: unspecified portion of sacrum Qualified Code(s): S32.10XA - Unspecified fracture of sacrum, initial encounter for closed fracture
--- NOTE | 2022-04-17 16:45 | Hospitalist Progress Note ---
Date of Service April 17, 2022 Assessment & Plan (1) Sacral fracture: (2) Ambulatory dysfunction: (3) Fall: (4) Acute hip pain: Plan: Present on admission with worsening pelvis pain CT images reviewed showing nondisplaced left sacral ala fracture Hip xray showed no acute bony abnormality is identified. Continue pain control with morphine, lidocaine patch, oxycodone and heat pad Ortho on board no acute surgical intervention at this time Continue WBAT LLE; may use walker for assistance PT/OT eval Pt is moving well with the walker Fall precaution OK from ortho standpoint to discharge Follow up with ortho in 2 months as needed if pain persists (5) CAD (coronary artery disease): (6) Status post cardiac pacemaker procedure: (7) History of CT (myocardial infarction): (8) Hypertension: (9) Atrial fibrillation: Plan: - Hx of Watchman in Aug 2021, pacemaker in situ inserted many years ago - Previously followed with Dr. Beaver in [place], scheduled to see Dr. Orourke and transfer care to [facility] cardiology with an appointment next month - Continue medications including losartan, verapamil, atorvastatin, aspirin 81 mg, and lasix (10) Anemia: Plan: - Iron deficiency anemia, hgb 12.5 on admission, may continue iron supplementation DVT ppx: - teds, scds, heparin subq CODE: Full code Disposition Stable to discharge Admission and Anticipated Discharge Date Admission Date: April 16, 2022 Subjective Pt was seen and examined for follow up of left side pelvis pain Lying in bed with no acute distress. Patient said pain is tolerable She said the pain is worse with movement of the left lower extremity denies any chest pain, palpitation, dizziness, shortness of breath. Review of Systems Review of Systems: All systems reviewed & are unremarkable except as noted in Subjective Physical Exam Physical Exam: General- No acute distress Head- atraumatic Eyes- PERRL, EOMI, ENT- oropharynx clear Neck- supple, no JVD Lungs- clear to auscultation Heart- regular rhythm; no murmur Abdomen- normal bowel sounds, soft, nontender Extremities- no calf tenderness Neuro- alert, oriented x 3; PERRL, EOMI; no facial palsy; no dysarthria Skin- warm & dry Results & Data Results & Data ([facility]) Vital Signs (Past 12 Hours) Vital Signs Temp Pulse Resp BP Pulse Ox O2 Del Method 04/17/22 15:00 36.8 C 60 17 147/83 H 97 Room Air 04/17/22 07:01 36.7 C 60 17 144/67 H 93 Room Air (1) Acute hip pain Laterality: left Qualified Code(s): M25.552 - Pain in left hip (2) Anemia Anemia type: unspecified type Qualified Code(s): D64.9 - Anemia, unspecified (3) Atrial fibrillation Atrial fibrillation type: paroxysmal Qualified Code(s): I48.0 - Paroxysmal atrial fibrillation
--- NOTE | 2022-04-17 17:42 | XRay Report ---
LEFT HIP 2 VIEWS CLINICAL HISTORY: Fall with left hip pain. FINDINGS: AP and frog-leg views of the left hip are correlated with pelvic CT dated 04/16/2022. The sk eletal structures are osteopenic. There is no radiographic evidence of acute fracture involving the l eft hip or the visualized left hemipelvis. Mild degenerative change is noted in the left hip. Sclerot ic change is noted in the left sacroiliac joint. Lumbosacral fusion hardware is partially imaged. The overlying soft tissues are normal as imaged. IMPRESSION: 1. No acute bony abnormality is identified. 2. The left sacral fracture seen by CT is not visualized by x-ray. Electronically signed by: Jonathan Powers M.D. 04/17/2022 5:41 PM
[2022-04-17] MEDS: ATORVASTATIN 20 MG TAB PO SCH (21:26)
[2022-04-17] MEDS: LIDOCAINE 5% 1 PATCH TD SCH (21:27)
[2022-04-17] MEDS ORDERED: oxyCODONE HCL IR 5 MG TAB (IMMEDIATE RELEASE) PO PRN (23:47)
[2022-04-18] MEDS: traMADol HCL 50 MG TABLET PO PRN ×3 (02:16→17:33)
[2022-04-18] MEDS: ACETAMINOPHEN 500 MG TAB PO SCH ×2 (06:04→13:28)
--- NOTE | 2022-04-18 08:25 | Hospitalist Progress Note ---
Date of Service April 18, 2022 Assessment & Plan (1) Sacral fracture: (2) Ambulatory dysfunction: (3) Fall: (4) Acute hip pain: Plan: Present on admission with worsening pelvis pain CT images reviewed showing nondisplaced left sacral ala fracture Hip xray showed no acute bony abnormality is identified. Continue pain control with morphine, lidocaine patch, oxycodone and heat pad while inpt Ortho consulted - no acute surgical intervention at this time Continue WBAT LLE; may use walker for assistance PT/OT eval Pt is moving well with the walker Fall precaution OK from ortho standpoint to discharge Follow up with ortho in 2 months as needed if pain persists (5) CAD (coronary artery disease): (6) Status post cardiac pacemaker procedure: (7) History of OK (myocardial infarction): (8) Hypertension: (9) Atrial fibrillation: Plan: - Hx of Watchman in Aug 2021, pacemaker in situ inserted many years ago - Previously followed with Dr. Beaver in [place], scheduled to see Dr. Orourke and transfer care to [facility] cardiology with an appointment next month - Continue medications including losartan, verapamil, atorvastatin, aspirin 81 mg, and lasix (10) Anemia: Plan: - Iron deficiency anemia, hgb 12.5 on admission, may continue iron supplementation DVT ppx: - teds, scds, heparin subq CODE: Full code Disposition Stable to discharge Admission and Anticipated Discharge Date Admission Date: April 16, 2022 Subjective Pt was seen and examined for follow up of left side pelvis pain Sitting up in bed with no acute distress. Patient said pain is tolerable She said the pain is worse with movement of the left lower extremity denies any chest pain, palpitation, dizziness, shortness of breath. Seen by ortho, PT/OT Says she already has a walker Review of Systems Review of Systems: All systems reviewed & are unremarkable except as noted in Subjective Physical Exam Physical Exam: General- elderly slim F in NAD Head- atraumatic Eyes- PERRL, EOMI, ENT- oropharynx clear Neck- supple, no JVD Lungs- clear to auscultation Heart- regular rhythm; no murmur Abdomen- normal bowel sounds, soft, nontender Extremities- no calf tenderness Neuro- alert, oriented x 3; PERRL, EOMI; no facial palsy; no dysarthria Skin- warm & dry Results & Data Results & Data ([facility]) Vital Signs (Past 12 Hours) Vital Signs Temp Pulse Resp BP Pulse Ox O2 Del Method 04/18/22 07:33 36.6 C 60 16 130/56 L 91 Room Air 04/17/22 23:38 36.8 C 58 L 16 131/55 L 94 Room Air Medications Administered Current Inpatient Medications Acetaminophen (Acetaminophen 500 Mg Tab) 1,000 mg PO Q8 [facility] Stop: 05/16/22 17:58 Last Admin: 04/18/22 06:04 Dose: 1,000 mg Alendronate Sodium (Alendronate Sodium 10 Mg Tab) 10 mg PO Wilson@0700 [facility] Stop: 05/23/22 06:59 Aspirin (Aspirin 81 Mg Ectab) 81 mg PO DAILY [facility] Stop: 05/17/22 08:59 Last Admin: 04/17/22 07:39 Dose: 81 mg Atorvastatin Calcium (Atorvastatin 20 Mg Tab) 20 mg PO QPM [facility] Stop: 05/16/22 20:59 Last Admin: 04/17/22 21:26 Dose: 20 mg Bisacodyl (Bisacodyl 5 Mg Tabec) 5 mg PO DAILY [facility] Stop: 05/17/22 08:59 Last Admin: 04/17/22 08:18 Dose: 5 mg Cetirizine HCl (Cetirizine Hcl 10 Mg Tablet) 10 mg PO DAILY PRN PRN Reason: Congestion Stop: 05/16/22 17:58 Ferrous Sulfate (Ferrous Sulfate 325 Mg Tab) 325 mg PO DAILY [facility] Stop: 05/17/22 08:59 Last Admin: 04/17/22 07:39 Dose: 325 mg Fluticasone Propionate (Fluticasone Propionate Na Spr 16 Gm Btl) 1 sprays NA DAILY [facility] Stop: 05/17/22 08:59 Last Admin: 04/17/22 07:39 Dose: 1 sprays Furosemide (Furosemide 20 Mg Tab) 20 mg PO QAM [facility] Stop: 05/17/22 08:59 Last Admin: 04/17/22 07:39 Dose: 20 mg Heparin Sodium (Porcine) (Heparin Sod 5,000 Unit/0.5 Ml Vial) 5,000 units SQ Q12 [facility] Stop: 05/16/22 20:59 Last Admin: 04/17/22 21:26 Dose: 5,000 units Hydralazine HCl (Hydralazine Hcl 20 Mg/Ml Vial) 10 mg IV Q6H PRN PRN Reason: Hypertension Stop: 05/16/22 17:58 Lidocaine (Lidocaine 5% 1 Patch) 1 patch TD HS [facility] Stop: 05/16/22 18:59 Last Admin: 04/17/22 21:27 Dose: 1 patch Losartan Potassium (Losartan Potassium 25 Mg Tab) 25 mg PO DAILY [facility] Stop: 05/17/22 08:59 Last Admin: 04/17/22 07:39 Dose: 25 mg Miscellaneous (Remove Lidoderm Patch) 1 each N/A DAILY [facility] Stop: 05/17/22 08:59 Last Admin: 04/17/22 07:41 Dose: 1 each Ondansetron HCl (Ondansetron Inj 2 Mg/Ml 2 Ml Vial) 4 mg IV Q4H PRN PRN Reason: Nausea And Vomiting Stop: 05/16/22 17:58 Oxycodone HCl (Oxycodone Hcl Ir 5 Mg Tab (Immediate Release)) 5 mg PO Q6H PRN PRN Reason: Pain Stop: 04/30/22 17:49 Pantoprazole Sodium (Pantoprazole 40 Mg Tab) 40 mg PO DAILY [facility] Stop: 05/17/22 08:59 Last Admin: 04/17/22 07:39 Dose: 40 mg Polyethylene Glycol (Polyethylene (Miralax) 17 Gm Pack) 17 gm PO DAILY PRN PRN Reason: Constipation Stop: 05/16/22 17:58 Tramadol HCl (Tramadol Hcl 50 Mg Tablet) 50 mg PO Q8H PRN PRN Reason: Moderate Pain Stop: 05/17/22 23:41 Last Admin: 04/18/22 02:16 Dose: 50 mg Verapamil HCl (Verapamil Hcl 180 Mg Tabcr) 180 mg PO QAM [facility] Stop: 05/17/22 08:59 Last Admin: 04/17/22 08:18 Dose: 180 mg Zolpidem Tartrate (Zolpidem Tartrate 5 Mg Tab) 5 mg PO HS PRN PRN Reason: Sleep Stop: 05/16/22 17:58 (1) Acute hip pain Laterality: left Qualified Code(s): M25.552 - Pain in left hip (2) Anemia Anemia type: unspecified type Qualified Code(s): D64.9 - Anemia, unspecified (3) Atrial fibrillation Atrial fibrillation type: paroxysmal Qualified Code(s): I48.0 - Paroxysmal a trial fibrillation
[2022-04-18] MEDS: FLUTICASONE PROPIONATE NA SPR 16 GM BTL SCH (08:44)
[2022-04-18] MEDS: LOSARTAN POTASSIUM 25 MG TAB PO SCH (08:45)
[2022-04-18] MEDS: PANTOprazole 40 MG TAB PO SCH (08:45)
[2022-04-18] MEDS: VERAPAMIL HCL 180 MG TABCR PO SCH (08:45)
[2022-04-18] MEDS: ASPIRIN 81 MG ECTAB PO SCH (08:45)
[2022-04-18] MEDS: FUROSEMIDE 20 MG TAB PO SCH (08:45)
[2022-04-18] MEDS: FERROUS SULFATE 325 MG TAB PO SCH (08:45)
[2022-04-18] MEDS: bisacodyL 5 MG TABEC PO SCH (08:46)
[2022-04-18] MEDS: HEPARIN SOD 5,000 UNIT/0.5 ML VIAL SQ SCH (08:46)
--- NOTE | 2022-04-18 09:27 | Discharge Summary ---
Date of Service April 18, 2022 Admission HPI Per Admitting Provider This is an 81 yo F with PMhx of A. fib, CAD, cardiac pacemaker in situ, watchman procedure, HTN, HLD, dementia, lymphedema of lower extremities, iron deficiency anemia, GERD, asthma who presents after mechanical fall she sustained on 04/13/2022. A CT of the pelvis was conducted at that time when she was seen here in the ER which revealed a subtle nondisplaced fracture of the left sacral yael. She was discharged home with pain management. She presents today due to worsening left-sided hip pain radiating into her lower back. Denies any bowel or bladder incontinence, or saddle anesthesia. She had been attempting to medicate her pain at home with 2 tylenol tablets every 4-6 hours but it was not providing relief. She has been ambulating even today, but the pain became so severe that she wasn't able walk today unless was using a walker. Pt walked without issues prior to this. She lives alone but her sister lives next door. Pt denies any other acute complaints. Admission Exam Per Admitting Provider General: awake, alert, no apparent distress Head: Normocephalic, atraumatic ENT: PERRL, EOMI, no pharyngeal exudate, mucous membranes moist Chest: Clear to auscultation, on room air, no adventitious breath sounds, she is able to roll onto her side left without much difficulty Cardiac: Regular rate and rhythm, no murmur, no JVD, normal peripheral pulses, good capillary refill Abdominal: NABS x 4 quadrants, soft, nondistended, nontender to palpation, no rebound or guarding, no pain with hip palpation anteriorly Extremities: Normal inspection, no peripheral edema or erythema, calfs nontender to palpation Psych: Normal mood and affect Neuro: AAO x 3, strength intact bilaterally and rated 5/5 in upper extremities, 4/5 in lower extremities due to pain, no gross motor deficits, speech is clear, no peripheral sensory deficits Principal Diagnosis (1) Sacral fracture: (2) Ambulatory dysfunction: (3) Fall: (4) Acute hip pain Discharge Exam General- elderly slim F in NAD Head- atraumatic Eyes- PERRL, EOMI, ENT- oropharynx clear Neck- supple, no JVD Lungs- clear to auscultation Heart- regular rhythm; no murmur Abdomen- normal bowel sounds, soft, nontender Extremities- no calf tenderness Neuro- alert, oriented x 3; PERRL, EOMI; no facial palsy; no dysarthria Skin- warm & dry Discharge Data Allergies Allergy/AdvReac Type Severity Reaction Status Date / Time adhesive Allergy Intermediate RASH Verified 04/16/22 15:50 cat dander Allergy Mild itchy,watery Verified 04/16/22 15:50 eyes grass pollen-perennial rye, Allergy Mild itchy,watery Verified 04/16/22 15:50 standar eyes NSAIDS (Non-Steroidal AdvReac Severe Gastrointestinal Verified 04/16/22 15:50 Anti-Inflamma Upset nafcillin AdvReac Intermediate BODY Verified 04/16/22 15:50 WEAKENED,NAUSEA VOMITING,UNABLE TO FUNCTION Sulfa (Sulfonamide AdvReac Intermediate G I UPSET Verified 04/16/22 15:50 Antibiotics) Consultations 04/16/22 16:24 ED Decision to Admit Stat 04/17/22 11:35 Consult Orthopedic Surgery Routine Ordered Studies 04/16/22 14:11 CT abd pelvis IV con only Stat FINDINGS: Lung bases: The heart is mildly enlarged and without pericardial effusion. Pacemaker leads are noted. The lung bases are clear noting bibasilar scarring/atelectasis. Liver: The contrast-enhanced liver is normal in size, contour, and attenuation. Fatty infiltration is seen adjacent to the falciform ligament. There is no intrahepatic biliary ductal dilatation. The hepatic veins and portal veins are patent. Gallbladder: Unremarkable. Spleen: Normal in size and attenuation. Pancreas: Unremarkable. Adrenal glands: Unremarkable. Kidneys: The contrast enhanced kidneys demonstrate mild cortical atrophy and are without hydronephrosis. The kidneys enhance symmetrically. Scattered subcentimeter cortical hypodensities likely represent cysts but are too small for definitive characterization. Abdominal vasculature: The abdominal aorta is normal in course and caliber noting advanced atherosclerotic calcification. Bowel: There is advanced colonic diverticulosis without CT evidence of acute diverticulitis. No bowel obstruction is seen. Moderate fecal retention is present throughout the colon. The appendix is well-visualized and normal. Peritoneum: There is no intraperitoneal free air or abdominal ascites. There is a fat-containing umbilical hernia. Lymphadenopathy: None. Pelvic viscera: The bladder wall appears circumferentially thickened. The uterus is surgically absent. No adnexal lesion is seen. Skeletal structures: The skeletal structures are osteopenic. See below for dedic ated discussion of the lumbar spine. Acute left sacral alar fracture is unchanged from 04/13/2022. The remainder of the bony pelvis in the proximal femora appear intact No lytic or blastic lesions are seen. LUMBAR SPINE: There is a moderate chronic compression deformity of L3. Vertebral body height is otherwise maintained throughout the lumbar spine. Alignment is preserved. There is postoperative change from laminectomy and posterior fusion at L4-S1. Interpedicular screws are present at all levels. Lucency around the ventricular screws and L4 suggests loosening. Anterior and lateral marginal o steophytes are seen throughout. The transverse processes are intact. There is no evidence of spondylolysis. Facet arthropathy is noted in the lower lumbar region. There is postoperative change from discectomy at L4-L5 and L5-S1. Mild to moderate disc space narrowing is seen at the remaining lumbar levels. There is fatty atrophy of the paraspinous musculature. Postoperative change is seen posterior to the thecal sac at the operative levels. IMPRESSION: 1. There is no evidence of solid organ injury in the abdomen or pelvis. 2. There is no evidence of acute fracture or malalignment involving the lumbar spine. 3. An acute left sacral alar fracture is unchanged from the pelvic CT performed 2 days ago. 4. Advanced colonic diverticulosis without CT evidence of acute diverticulitis. 5. Lumbosacral spondylosis with postoperative change and a chronic compression deformity of L3 is above. This is similar to previous. 6. Lucency around the interpedicular screws in L4 suggests loosening. 7. The bladder wall appears circumferentially thickened. Correlate with clinical findings and urinalysis. 8. Additional findings as above. CT head/brain wo con Stat Brain parenchyma: There is age-related involutional change noting mild to moderate subcortical and periventricular microangiopathic disease. There is no hemorrhage, mass effect, or evidence of acute territorial ischemia by CT criteria. Mcmanus-white matter differentiation is preserved. No extra-axial fluid collection is seen. Ventricles, sulci, cisterns: Prominent secondary to involutional change. Intracranial vasculature: There is atherosclerotic calcification of the cavernous carotid and vertebral arteries. Calvarium: The skeletal structures are osteopenic. No depressed calvarial fracture is identified. Sinuses and mastoids: The visualized paranasal sinuses are clear. The mastoid air cells are well pneumatized. Orbits: The bony orbits are grossly intact. IMPRESSION: There is no hemorrhage, mass effect, or evidence of acute territorial ischemia by CT criteria. CT lumbar spine w con Stat FINDINGS: Lung bases: The heart is mildly enlarged and without pericardial effusion. Pacemaker leads are noted. The lung bases are clear noting bibasilar scarring/atelectasis. Liver: The contrast-enhanced liver is normal in size, contour, and attenuation. Fatty infiltration is seen adjacent to the falciform ligament. There is no intrahepatic biliary ductal dilatation. The hepatic veins and portal veins are patent. Gallbladder: Unremarkable. Spleen: Normal in size and attenuation. Pancreas: Unremarkable. Adrenal glands: Unremarkable. Kidneys: The contrast enhanced kidneys demonstrate mild cortical atrophy and are without hydronephrosis. The kidneys enhance symmetrically. Scattered subcentimeter cortical hypodensities likely represent cysts but are too small for definitive characterization. Abdominal vasculature: The abdominal aorta is normal in course and caliber noting advanced atherosclerotic calcification. Bowel: There is advanced colonic diverticulosis without CT evidence of acute diverticulitis. No bowel obstruction is seen. Moderate fecal retention is present throughout the colon. The appendix is well-visualized and normal. Peritoneum: There is no intraperitoneal free air or abdominal ascites. There is a fat-containing umbilical hernia. Lymphadenopathy: None. Pelvic viscera: The bladder wall appears circumferentially thickened. The uterus is surgically absent. No adnexal lesion is seen. Skeletal structures: The skeletal structures are osteopenic. See below for dedicated discussion of the lumbar spine. Acute left sacral alar fracture is unchanged from 04/13/2022. The remainder of the bony pelvis in the proximal femora appear intact No lytic or blastic lesions are seen. LUMBAR SPINE: There is a moderate chronic compression deformity of L3. Vertebral body height is otherwise maintained throughout the lumbar spine. Alignment is preserved. There is postoperative change from laminectomy and posterior fusion at L4-S1. Interpedicular screws are present at all levels. Lucency around the ventricular screws and L4 suggests loosening. Anterior and lateral marginal osteophytes are seen throughout. The transverse processes are intact. There is no evidence of spondylolysis. Facet arthropathy is noted in the lower lumbar r egion. There is postoperative change from discectomy at L4-L5 and L5-S1. Mild to moderate disc space narrowing is seen at the remaining lumbar levels. There is fatty atrophy of the paraspinous musculature. Postoperative change is seen posterior to the thecal sac at the operative levels. IMPRESSION: 1. There is no evidence of solid organ injury in the abdomen or pelvis. 2. There is no evidence of acute fracture or malalignment involving the lumbar spine. 3. An acute left sacral alar fracture is unchanged from the pelvic CT performed 2 days ago. 4. Advanced colonic diverticulosis without CT evidence of acute diverticulitis. 5. Lumbosacral spondylosis with postoperative change and a chronic compression deformity of L3 is above. This is similar to previous. 6. Lucency around the interpedicular screws in L4 suggests loosening. 7. The bladder wall appears circumferentially thickened. Correlate with clinical findings and urinalysis. 8. Additional findings as above. Hospital Course (1) Sacral fracture: (2) Ambulatory dysfunction: (3) Fall: (4) Acute hip pain: Present on admission with worsening pelvis pain CT images reviewed showing nondisplaced left sacral ala fracture Hip xray showed no acute bony abnormality is identified. Continue pain control with morphine, lidocaine patch, oxycodone and heat pad while inpt Orthopedics consulted (Dr. Brothers) - no acute surgical intervention at this time Continue WBAT LLE; may use walker for assistance PT/OT eval Pt is moving well with the walker Fall precaution OK from ortho standpoint to discharge Follow up with ortho in 2 months as needed if pain persists (5) CAD (coronary artery disease): (6) Status post cardiac pacemaker procedure: (7) History of PA (myocardial infarction): (8) Hypertension: (9) Atrial fibrillation: - Hx of Watchman in Aug 2021, pacemaker in situ inserted many years ago - Previously followed with Dr. Beaver in [place], scheduled to see Dr. Orourke and transfer care to [facility] cardiology with an appointment next month - Continue medications including losartan, verapamil, atorvastatin, aspirin 81 mg, and lasix (10) Anemia: - Iron deficiency anemia, hgb 12.5 on admission, may continue iron supplementation Total Time Total Time Spent Total Time Spent (In Minutes): 40 Discharge Plan Discharge Items Patient Disposition: Home - Self-Care Reason For Visit: LEFT SACRAL FRACTURE Discharge Diagnosis: (1) Sacral fracture: (2) Ambulatory dysfunction: (3) Fall: (4) Acute hip pain Activity: Resume your previous activity Non-emergency contact: Primary Care Provider Call non-emergency contact if: you have any medication questions and your symptoms worsen Follow-up/Referrals: Tramaine Mcdonald MD [Primary Care Provider] - (Date & Time 04/25/2022 11:00 AM Provider Tramaine Mcdonald MD [facility] ) Diet: Heart Healthy Addtl Attending Provider Instructions: Follow up with your primary care provider within 1 week. The appointment was scheduled for you for April 25. Continue Weight bearing as tolerated in Left lower extremity Continue to use the walker for assistance with ambulation Continue pain control with Tylenol and tramadol Take Tylenol 1000 mg 3 times a day. For more severe pain, you can take tramadol as prescribed. Recommend using lidocaine patch on your left lower back, for pain. You can obtain this [id number], often under the name [employer]. Do not drive or operate any machine while taking tramadol. Please hold next dose if you become drowsy and lethargic Fall precaution Pending Studies at Discharge: No Stand-Alone Forms: My [facility] [employer], Smoking Cessation Medications and DC Order Prescriptions: New tramadol 50 mg Tablet 50 mg PO Q8H PRN (Reason: pain) Qty: 10 0RF bisacodyl [Gentle Laxative (bisacodyl)] 5 mg Tablet,Delayed Release (Dr/Ec) 5 mg PO DAILY Qty: 10 0RF Continued alendronate 10 mg tablet 10 mg PO WK pantoprazole [Protonix] 40 mg tablet,delayed release (DR/EC) 40 mg PO DAILY losartan [Cozaar] 25 mg tablet 25 mg PO DAILY cetirizine [Zyrtec] 10 mg tablet 10 mg PO DAILY PRN (Reason: Congestion) ferrous sulfate 325 mg (65 mg iron) tablet 325 mg PO DAILY fluticasone propionate 50 mcg/actuation spray,suspension 1 spray intranasal DAILY Rx Instructions: administer into each nostril aspirin [Adult Low Dose Aspirin] 81 mg tablet,delayed release (DR/EC) 81 mg PO DAILY zolpidem [Ambien] 5 mg Tablet 5 - 10 mg PO HS PRN (Reason: Sleep) Qty: 0 atorvastatin 20 mg Tablet 20 mg PO QPM Qty: 0 furosemide 20 mg Tablet 20 mg PO QAM Qty: 0 verapamil 180 mg tablet extended release 180 mg PO DAILY Discharge Orders: Discharge Order (Routine); Ordered 07/19/22 Ordered By: Eduard Sepulveda Admission Data Admit Date/Time: 04/16/22 16:28 Attending Provider: Eduard Sepulveda Admit Provider: Steven Lu Primary Care Provider: Tramaine Mcdonald Other Providers: Steven Lu ; David Brothers ; Lion Núñez
[2022-04-23] MEDS ORDERED: ALENDRONATE SODIUM 10 MG TAB PO SCH (07:00)
== END 2022-04-18 19:00 | disposition home or self-care (01) | DRG 552 ==
LOC: ED 13:31 → SUATTDRO 16:28 → 3W 16:28 → INTOOBSV 16:28 → 3W 17:22

== ENCOUNTER 2024-06-22 10:03 | Observation (INO) ==
--- OUTSIDE RECORDS SUMMARY | 2024-06-22 10:07 | External Medical Summary | Summary of Care ---
Author Name Unknown Organization [facility] [address] [facility] [address] Phone [phone] Care Team Providers Care Sales Person Name Role Phone Rachel Grimes MD Primary Care Provider [phone] Reason for Visit * Reason Onset Date Comments Advice 03/15/2024 Encounter Details Date Type Department Care Team (Late st Contact Info) Description 03/15/2024 Telephone [facility] [address] [place] [address] Tramaine Mcdonald MD [address] [place] [address] Advice Allergies Active Allergy Reactions Criticality Noted Date Comments Aspirin Medium 07/18/2018 Stomach Ulcer Ketorolac Tromethamine High 03/27/2017 Other reaction(s): Abdominal Pain Lisinopril Cough 01/17/2022 Nafcillin Rash Low 10/07/2014 Electrolyte disturbance Nsaids 07/18/2018 Gastric ulcer Prednisone 08/23/2020 Other reaction(s): Headache "unable to sleep" Sulfamethoxazole-Trimethopr im 05/31/2015 Other reaction(s): GI Cramps documented as of this encounter (statuses as of 06/14/2024) Medications Medication Sig Dispensed Refills Start Date End Date Status Fluticasone Propionate 50 MCG/ACT Nasal Suspension (Flonase) Administer 1 [place] into nostril in the morning. As needed. 08/12/2021 Active Polyethylene Glycol 3350 17 GM/SCOOP Oral Powder (Miralax) Take 17 g by mouth. As needed 10/30/2020 Active RA Laxative 5 MG Oral Tablet Delayed Release Take 1 Tablet by mouth in the morning. 04/18/2022 Active Aspirin Low Dose 81 MG Oral Tablet Delayed Release Take 1 Tablet (81 mg) by mouth in the morning. 90 Tablet 3 2022 Active Ventolin HFA 108 (90 Base) MCG/ACT Inhalation Aerosol SolutionIndications: Mild persistent asthma without complication Inhale 2 Puffs by mouth every 4 hours as needed for Cough. 18 g 3 02/06/2023 Active Memantine HCl 10 MG Oral Tablet (Namenda) TAKE 1 TABLET IN THE MORNING 90 Tablet 3 06/25/2023 Active Pantoprazole Sodium 40 MG Oral Tablet Delayed Release (Protonix) TAKE 1 TABLET IN THE MORNING 90 Tablet 3 07/26/2023 Active Losartan Potassium 25 MG Oral Tablet (Cozaar) Take 1 Tablet by mouth in the morning. 90 Tablet 3 08/07/2023 Active Verapamil HCl ER 180 MG Oral Tablet Extended Release (Isoptin SR) Take 1 Tablet by mouth in the morning. 90 Tablet 3 08/07/2023 Active Atorvastatin Calcium 20 MG Oral Tablet (Lipitor) TAKE 1 TABLET AT BEDTIME 90 Tablet 2 11/05/2023 Active documented as of this encounter (statuses as of 06/14/2024) Active Problems Problem Noted Date Diagnosed Date Cerebrovascular accident (CVA) 06/10/2024 Easy bruising 05/20/2024 Senile purpura 04/20/2023 Venous stasis dermatitis of both lower extremiti es 04/20/2023 Insomnia 04/20/2023 Mild cognitive impairment of uncertain or unknow n etiology 02/19/2023 Stasis dermatitis of right l ower extremity with venous ulcer due to chronic peripheral venous hypertension 01/03/2023 Prediabetes 08/17/2022 Asthma, mild persistent 03/13/2022 Dementia associated with 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 behavioral disturbance 01/17/2022 Other premature beats 01/17/2022 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 Coronary atherosclerosis due to lipid rich plaqu e 01/17/2022 Cardiac pacemaker in situ 01/17/2022 Presence of Watchman left atrial appendage closu re device 01/17/2022 Lymphedema of both lower extremities 01/17/2022 Osteoporosis 11/27/2021 Dyslipidemia 11/27/2021 Allergic rhinitis 11/27/2021 Iron deficiency 11/27/2021 HTN, goal below 140/90 11/27/2021 Gastroesophageal reflux disease 11/27/2021 Atrial fibrillation 08/18/2021 Lumbar stenosis 04/29/2014 documented as of this encounter (statuses as of 06/14/2024) Resolved Problems Problem Noted Date Diagnosed Date Resolved Date Asthma in remission 03/13/2022 03/31/20 Asthma, moderate persistent 03/13/2022 03/31/2022 Asthma, severe persistent 03/13/2022 Intermittent asthma with rel iever use up to twice per week 03/13/2022 03/31/2022 Implantable cardioverter-def ibrillator (ICD) in situ 01/17/2022 04/02/2023 Asthma 01/17/2022 03/31/2022 documented as of this encounter (statuses as of 06/14/2024) Immunizations Name Administration Dates Next Due COVID-19 mRNA, LNP-s, No Pre serve, 2-Dose Series (Pfizer) 06/16/2022,09/13/2021,11/26/2020,11/05 Pneumococcal Conjugate Vacc, 13 Valent (Prevnar) 01/19/2016 Pneumococcal Polysaccharide PPV23 (Pneumovax) 06/14/2018,08/30/2012 Seasonal Influenza, Quadriva lent Hd (Fluzone Hd) 08/07/2023,06/09/2022 Seasonal Influenza, Recombin ant, RIV4, PF, (Flublock) 08/12/2021,07/14/2019,07/02/2018 Seasonal Influenza, Trivalen t, (IIV3), with Preserv, (Fluzone) 06/08/2020,07/14/2019,07/02/2018,06/28,06/27/2016,07/16/2015,07/08/2014 ,07/03/2013,06/13/2012 TDAP (age 10 and older)(Boostrix) 03/02/2018, documented as of this encounter Social History Tobacco Use Types Packs/Day Years Used Date Smoking Tobacco: Never Passive Smoke Exposure: Past Smokeless Tobacco: Never Alcohol Use Standard Drinks/Week Comments Not Currently 0 (1 standard drink = 0.6 oz pur e alcohol) PHQ-2 Answer Date Recorded PHQ Adult Total Score 0 03/21/2022 Sex and Gender Information Value Date Recorded Sex Assigned at Female 11/29/2023 10:18 PM EST Gender Identity Female 11/29/2023 10:18 PM EST Sexual Orientation Straight 03/13/2022 6: 45 PM EDT Job Start Date Occupation Industry Not on file Not on file Not on file documented as of this encounter Miscellaneous Notes * Telephone Encounter - Jose De Jesus Shearer OSA - 03/15/2024 9:05 AM EDT Rec'd call from pt stated she wants to reschedule Hematology appt from 04/18/24. She will call backMonday. documented in this encounter Plan of Treatment Upcoming Encounters Date Type Department Care Team (Late st Contact Info) Description 06/26/2024 1:20 PM EDT Office Visit Family [facility] [address] [place] [id number] Tramaine Mcdonald MD [address] [place] [address] 06/27/2024 1:00 PM EDT Office Visit Neurology [facility] [address] [place] [address] Ofelia Helm MD [address] [place] [address] 09/16/2024 3:30 PM EST Imaging Radiology, [facility] [address] [facility] [place] [address] 12/22/2024 11:00 AM EDT Office Visit Cardiology, [facility] [address] [place] [address] Kathy Larkin PA-C [address] [place] [address] Health Maintenance Due Date Last Done Comments Zoster Vaccines (1 of 2) 1989 Adult Wellness Visit 2005 *SPIROMETRY ONCE FOR ASTHMA-ADULT 03/15/2022 DXA Scan 11/28/2023 11/28/2021, 12/31, 01/27/2019, Additional history exists *BISPHONATE OR OTHER ACCEPTABLE MEDICATION NEEDED FOR OSTEOPOROSIS (REFER TO SMARTSET #1146) 04/09/2024 COVID-19 Vaccine ( season) 2024 03/24/2023, 09/19/2022, 06/16/2022, Additional history exists Influenza Vaccine (FLU shot) (#1) 2024 08/07/2023, 06/09/2022, 08/12/2021, Additional history exists HbA1c 10/24/2024 10/24/2023, 07/0 11/2022, 01/16/2022 Depression Screening 03/07/2025 03/07/2024 GFR 04/22/2025 04/22/2024, 06/0 03/2024, 10/24/2023, Additional history exists Albumin/Creatinine Ratio 06/15/2025 06/15/2022 DTap/Tdap Vaccines (3 - Td or Tdap) 03/02/2028 03/02/2018, 01/28/2016 Pneumococcal Vaccine: 65+ Years Completed 06/14/2018, 01/19/2016, 08/30/2012 VITAMIN D LEVEL ONCE IN A LIFETIME-USE SMARTSET# [id number] Completed 08/12/2021, 06/22/2020, 01/09/2019 HPV (Gardasil) Vaccine Aged Out No lo nger eligible based on patient's age to complete this topic Hepatitis B Vaccine Aged Out No longe r eligible based on patient's age to complete this topic MENINGOCOCCAL (MENACTRA/MENVEO) Aged Out No longer eligible based on patient's age to complete this topic documented as of this encounter Medical Devices Not on filedocumented as of this encounter Care Teams Sales Person Relationship Specialty Start Date End Date Rachel Grimes MD [address] [place] [address] PCP - General Internal Medicine 04/10/24 documented as of this encounter
--- OUTSIDE RECORDS SUMMARY | 2024-06-22 10:07 | External Medical Summary | Summary of Care ---
Author Name Unknown Organization [facility] Address [address] [place] [address] Phone [phone] Care Team Providers Care Roving Sizer Name Role Phone Rachel Grimes MD Primary Care Provider [phone] Reason for Referral * Evaluate & Treat - Unlimited Visits (Within 10 days (routine)) - Authorized Specialty Diagnoses / Procedures Referred By Contac t Referred To Contact HOME CARE / Home Care Diagnoses Chronic bilateral thoracic back pain Chronic bilateral low back pain without sciatica Rachel Grimes MD [address] [place] [address] Referral ID Status Reason Start Date Expiration Date Visits Requested Visits Authorized [id number] Authorized Specialty Services Required 06/17/2024 999 [id number] Question Answer Referral Priority Within 10 days (routine) Where should this appointment be scheduled? [facility] Comments Documentation of Xyea-ie-Cdmy Encounter Addendum Patient Name: Luna Chino I certify that this patient is under my care and that I, or a nurse practitioner or physician's social science research assistant working with me, had a [id number] encounter that meets the physician [id number] encounter requirements with this patient on: Jun 17 2024 The encounter with the patient was in whole, or in part, for the following medical condition, which is the primary reason for home health care (List medical condition): PT for back pain I certify that, based on my findings, the following services are medically necessary home health services: Physical Therapy To provide the following care/treatments: (All hospitalists not following the patient after discharge should complete this section): PT Primary Care Physician to follow home care plan of care after discharge: Rachel Grimes My clinical findings support the need for the above services because: chronic recurrent lower back pain , mid back Further, I certify that my clinical findings support that this patient is homebound (i.e. Absences from home require considerable and taxing effort and are for medical reasons or evangelical services or infrequently or of short duration when for other reason) because: Not able to drive, dementia Physician Signature: Date of Signature: Physician Printed Name: Rachel Grimes MD Reason for Visit * Reason Comments Acute Pt here today due to having back pain and bleeding under the skin on her legs and armsPt also states she has had a cough for over a month Encounter Details Date Type Department Care Team (Latest Contact Info) Description 06/17/2024 11:20 AM EDT Office Visit [facility] [address] [place] [address] Rachel Grimes MD [address] [place] [address] DDD (degenerative disc disease), lumbar*; Risk and functional assessment; Chronic bilateral thoracic back pain; Chronic bilateral low back pain without sciatica; Allergic rhinitis due to other allergic trigger, unspecified seasonality; Mild persistent asthma without complication; Senile purpura (HCC); Easy bruising; Coronary atherosclerosis due to lipid rich plaque; Cerebrovascular accident (CVA), unspecified mechanism (HCC); Permanent atrial fibrillation (HCC); 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) Allergies Active Allergy Reactions Criticality Noted Date Comments Aspirin Medium 07/18/2018 Stomach Ulcer Ketorolac Tromethamine High 03/27/2017 Other reaction(s): Abdominal Pain Lisinopril Cough 01/17/2022 Nafcillin Rash Low 10/07/2014 Electrolyte disturbance Nsaids 07/18/2018 Gastric ulcer Prednisone 08/23/2020 Other reaction(s): Headache "unable to sleep" Sulfamethoxazole-Trimethopr im 05/31/2015 Other reaction(s): GI Cramps documented as of this encounter (statuses as of 06/17/2024) Medications Medication Sig Dispensed Refills Start Date End Date Status Fluticasone Propionate 50 MCG/ACT Nasal Suspension (Flonase) Administer 1 Fountain into nostril in the morning. As needed. 08/12/2021 Active Polyethylene Glycol 3350 17 GM/SCOOP Oral Powder (Miralax) Take 17 g by mouth. As needed 10/30/2020 Active RA Laxative 5 MG Oral Tablet Delayed Release Take 1 Tablet by mouth in the morning. 04/18/2022 Active Memantine HCl 10 MG Oral Tablet [...] AT BEDTIME 90 Tablet 2 11/05/2023 Active Furosemide 40 MG Oral Tablet (Lasix) Take 1 Tablet by mouth in the morning. 90 Tablet 1 03/22/2024 Active Spironolactone 25 MG Oral Tablet (Aldactone)Indicat ions:HTN, goal below 140/90,Paroxysmal atrial fibrillation (HCC),Hypokalemia, Localized edema Take 0.5 Tablets by mouth in the morning. 45 Tablet 3 04/09/2024 Active Zolpidem Tartrate 5 MG Oral Tablet (Ambien)Indication s:Insomnia, unspecified type Take 1 Tablet by mouth at bedtime as needed for Sleep. 90 Tablet 04/22/2024 Active Clopidogrel Bisulfate 75 MG Oral Tablet (Plavix) Take 1 Tablet by mouth in the morning. 30 Tablet 5 06/10/2024 Active Montelukast Sodium 10 MG Oral Tablet (Singulair) Take 1 Tablet by mouth in the morning. 90 Tablet 3 06/17/2024 Active Ventolin HFA 108 (90 Base) MCG/ACT Inhalation Aerosol SolutionIndication s:Mild persistent asthma without complication Inhale 2 Puffs by mouth every 4 hours as needed for Cough. 18 g 3 06/17/2024 Active Doxycycline Hyclate 100 MG Oral Capsule Take 1 Capsule by mouth in the morning and 1 Capsule before bedtime. Do all this for 7 days. Until gone.. 14 Capsule 06/17/2024 4 Active Aspirin Low Dose 81 MG Oral Tablet Delayed Release Take 1 Tablet (81 mg) by mouth in the morning. 90 Tablet 3 2022 4 Discontinue d(Patient preference/ discontinua tion) Ventolin HFA 108 (90 Base) MCG/ACT Inhalation Aerosol SolutionIndication s:Mild persistent asthma without complication Inhale 2 Puffs by mouth every 4 hours as needed for Cough. 18 g 3 02/06/2023 4 Discontinue d(Refill) documented as of this encounter (statuses as of 06/17/2024) Active Problems Problem Noted Date Diagnosed Date [...] as of this encounter (statuses as of 06/17/2024) Resolved Problems Problem Noted Date Diagnosed Date Resolved Date Asthma in remission 03/13/2022 03/31/20 Asthma, moderate persistent 03/13/2022 03/31/2022 Asthma, severe persistent 03/13/2022 Intermittent asthma with rel iever use up to twice per week 03/13/2022 03/31/2022 Implantable cardioverter-def ibrillator (ICD) in situ 01/17/2022 04/02/2023 Asthma 01/17/2022 03/31/2022 documented as of this encounter (statuses as of 06/17/2024) Immunizations Name Administration Dates Next Due COVID-19 [...] on file documented as of this encounter Last Filed Vital Signs Vital Sign Reading Time Taken Comments Blood Pressure 112/70 06/17/2024 11:25 AM EDT Pulse 86 06/17/2024 11:25 AM EDT Temperature 35.6 C (96 F) 06/17/2024 11:25 AM EDT Respiratory Rate 18 06/17/2024 11:25 AM EDT Oxygen Saturation 99% 06/17/2024 11:25 AM EDT Inhaled Oxygen Concentration - - Weight 57.7 kg (127 lb 3.2 oz) 06/17/2024 11:25 AM EDT Height - - Body Mass Index 20.53 05/20/2024 11:26 AM EDT documented in this encounter Patient Instructions * Patient Instructions* Kisha Billings LPN - 06/17/2024 11:27 AM EDT Patient Instructions - Fall Prevention (This education is for all patients over 65 regardless of symptoms) Remember to take your current medications as prescribed. In order to prevent falls, you are encouraged to: Exercise Utilize assistive/adaptive devices Avoid multifocal lenses when walking Avoid hazards in home Maintain a regular toileting schedule Any questions please contact our office. Preventing Falls in the Home (This education is for all patients over 65 regardless of symptoms) As you get older, falls are more likely. Thats because your reaction time slows. Your muscles and joints may also get stiffer, making them less flexible. Illness, medications, and vision changes can also affect your balance. A fall could leave you unable to live on your own. To make your home safer, follow these tips: Floors Put nonskid pads under area rugs Remove throw rugs Replace worn floor coverings Tack carpets firmly to each step on carpeted stairs. Put nonskid strips on the edges of uncarpeted stairs Keep floors and stairs free of clutter and cords Arrange furniture so there are clear pathways Clean up any spills right away Bathrooms Install grab bars in the tub or shower Apply nonskid strips or put a nonskid rubber mat in the tub or shower Sit on a bath chair to bathe Use bathmats with nonskid backing Lighting Keep a flashlight in each room Put a nightlight along the pathway between the bedroom and the bathroom [employer] Patient Education Copyright 2008 - 2010 [employer] except where otherwise noted Preventing Falls: Exercises to Improve Balance, Flexibility, Strength, and Staying Power (This education is for all patients over 65 regardless of symptoms) Certain types of exercises may help make you less likely to fall. Try the ones below. Or do other exercises that your healthcare provider suggests. Depending on your health, you may need to start slowly. Dont let that stop you. Even small amounts of exercise can help you. Be sure to talk to yourhealthcare provider before starting any exercise program. Improve Balance Many types of exercise can help improve balance. Leonidas chi and yoga are good examples. Heres another one to try. You can do it anytime and almost anywhere. Stand next to a counter or solid support. Push yourself up onto your tiptoes. Hold for 5 seconds. If you start to lose your balance, hold on to the counter. Rest and repeat 5 times. Work up to holding for 20 to 30 seconds, if you can. Increase Flexibility Being more flexible makes it easier for you to move around safely. Try exercises like the seated hamstring stretch. Sit in a chair and put one foot on a stool. Straighten your leg and reach with both hands down either side of your leg. Reach as far down your leg as you can. Hold for about 20 seconds. Go back to the starting position. Then repeat 5 times. Switch legs. Build Strength Resistance exercises help build strength. You can do them without equipment. Or you can use weights, elastic bands, or special machines. One such exercise is called the biceps curl. You can hold a 1 pound weight or even a can of soup. Do this exercise at least 3 times a week. Strive for everyday. Sit up straight in a chair. Keep your elbow close to your body and your wrist straight. Bend your arm, moving your hand up to your shoulder. Then slowly lower your arm. Repeat 5 times. Switch to the other arm. Build Your Staying Power Aerobic exercises make your heart and lungs stronger so you can keep moving longer. Walking and swimming are two of the best types of exercises you can do. Using a stationary bike is great, too. Find an aerobic exercise that you enjoy. Start slowly and build up. Even 5 minutes is helpful. Aimfor a goal of 30 minutes, at least 3 times a week. You dont have to do 30 minutes in one session. Break it up and walk a little throughout the day. More Helpful Tips Start easy. Slowly work up to doing more. Talk with your healthcare provider about the best exercises for you. Call senior centers or health clubs about exercise programs. If needed, have a family member watch you walk every so often to check your stability. Exercise with a friend. Choose an activity you both enjoy. Try exercises that you can do anytime, anywhere. Here are two examples. Have someone with you when you first try these: Practice walking by placing one foot right in front of the other. Stand up and sit down 10 times. Repeat this throughout the day. [employer] Patient Education Copyright 2009 - 2010 [employer] except where otherwise noted. Preventing Falls: Moving Safely Using a Cane or Walker (This education is for all patients over 65 regardless of symptoms) Keep the cane away from your feet so you dont trip. A walking aid, such as a cane or walker, can help you stay more independent and avoid falls. Remember to keep your walking aid within easy reach when youre in a chair or in bed. And learn how to use it safely so you dont injure yourself. Using a Cane If you have a stronger side, hold the cane on that side. Get your balance. Move the cane and your weaker leg forward. Support your weight on both the cane and your weaker side. Step with your stronger leg. Start again from step 1. If youre using a folding walker, be sure you know how to lock it open. Check that its locked open before each use. Using a Walker Roll the walker (or lift it, if youre using one without wheels) forward about 12 inches. Step forward with your weaker leg first. Use the walker to help keep your balance. Bring your other foot forward to the center of the walker. Start again from step 1. Helpful Tips Check with your healthcare provider about the right walking aid to use. Ask about a walker with a seat attached. Check the tips of your cane or walker to make sure they have nonskid covers. Move slowly from room to room. Dont merida. Sit down to get dressed. Use a evelyn pack or backpack to keep your hands free. Get help for jobs that mean climbing, even on a stepstool. [employer] Patient Education Copyright 2008 - 2010 [employer] except where otherwise noted. Urinary Incontinence Plan of Care Documentation: (This education is for all patients over 65 regardless of symptoms) Current medications reconciled. Patient encouraged to: Practice kegal exercises Provide education materials Use the restroom every 2 hours throughout the day Limit caffeine, alcohol, spicy foods and acidic foods Keep a bladder diary Limit fluid intake 3-4 hours before bed Lose weight Prevent constipation Take fluid pills at a time when you can get to the bathroom quickly Control sugar better if diabetic Limit fluid intake to 60 oz. per day Wear support stockings (TEDs)if you have edema Kisha Billings LPN 06/17/2024 Kegel Exercises Kegel exercises dont require special clothing or equipment. Theyre easy to learn and simple to do. And if you do them right, no one can tell youre doing them, so they can be done almost anywhere. Your doctor, nurse, or physical therapist can answer any questions you have and help you get started. A Weak Pelvic Floor The pelvic floor muscles may weaken due to aging, and vaginal childbirth, injury, surgery, chronic cough, or lack of exercise. If the pelvic floor is weak, your bladder and other pelvic organs may sag out of place. The urethra may also open too easily and allow urine to leak out. Kegel exercises can help you strengthen your pelvic floor muscles so they can better support the pelvic organs and control urine flow. How Kegel Exercises Are Done Try each of the Kegel exercises described below. When youre doing them, try not to move your leg, buttock, or stomach muscles. While youre urinating, try to stop the flow of urine. Start and stop it as often as you can. Contract as if you were stopping your urine stream, but do it when youre not urinating. Tighten your rectum as if trying not to pass gas. Contract your anus, but dont move your buttocks. Helpful Hints Do your Kegels as often as you can. The more you do them, the faster youll feel the results. Pick an activity you do often as a reminder. For instance, do your Kegels every time you sit down. Tighten your pelvic floor before you sneeze, get up from a chair, cough, laugh, or lift. This protects your pelvic floor from injury and can help prevent urine leakage. Try to hold each Kegel for a slow count to five. You probably wont be able to hold them for thatlong at first, but keep practicing. It will get easier as your pelvic floor gets stronger. Eventually, special weights that you place in your vagina may be recommended to help make your Kegels even more effective. [employer] Patient Education Copyright 2008 - 2010 [employer] except where otherwise noted. Here are some helpful tips for your urinary incontinence: (This education is for all patients over 65 regardless of symptoms) Practice Kegel exercises Use the restroom every 2 hours throughout the day Limit caffeine, alcohol, spicy foods, and acidic foods Keep a bladder diary Limit fluid intake 3-4 hours before bed Lose weight Prevent constipation Take fluid pills at a time when can get to the bathroom quickly Control sugar better if diabetic Limit fluid intake to 60 oz. per day Any questions, please feel free to contact our office. documented in this encounter Progress Notes * Rachel Grimes MD - 06/17/2024 11:30 AM EDT Subjective Luna Chino is a 83 year old female. Chief Complaint Patient presents with Acute Pt here today due to having back pain and bleeding under the skin on her legs and arms Pt also states she has had a cough for over a month HPI: Here for back pain from quick picking up, bending over when she almost dropped a object Known chronic back pain No recent PT, agreed with home health PT Used to f/u with pain medicine but due to her plavix use for strokes, cardiovascular d/o, spinal injection is not indicated F/u with cardio for her known afib, CAD Also c/o chronic cough, over a month Showed diffuse bronchi, known asthma allergy Chronic mild dementia PMH: Patient Active Problem List Diagnosis Osteoporosis Dyslipidemia Allergic rhinitis Iron deficiency HTN, goal below 140/90 Gastroesophageal reflux disease 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) Atrial fibrillation (HCC) Other premature beats Lumbar stenosis Chondromalacia Coronary atherosclerosis due to lipid rich plaque Cardiac pacemaker in situ Presence of Watchman left atrial appendage closure device Lymphedema of both lower extremities Asthma, mild persistent Prediabetes Stasis dermatitis of right lower extremity with venous ulcer due to chronic peripheral venous hypertension (HCC) Mild cognitive impairment of uncertain or unknown etiology Senile purpura (HCC) Venous stasis dermatitis of both lower extremities Insomnia Easy bruising Cerebrovascular accident (CVA) ([facility]) Current Outpatient Medications Medication Sig Dispense Refill Fluticasone Propionate 50 MCG/ACT Nasal Suspension (Flonase) Administer 1 Fountain into nostril inthe morning. As needed. Polyethylene Glycol 3350 17 GM/SCOOP Oral Powder (Miralax) Take 17 g by mouth. As needed RA Laxative 5 MG Oral Tablet Delayed Release Take 1 Tablet by mouth in the morning. Memantine HCl 10 MG Oral Tablet (Namenda) TAKE 1 TABLET IN THE MORNING 90 Tablet 3 Pantoprazole Sodium 40 MG Oral Tablet Delayed Release (Protonix) TAKE 1 TABLET IN THE MORNING 90 Tablet 3 Losartan Potassium 25 MG Oral Tablet (Cozaar) Take 1 Tablet by mouth in the morning. 90 Tablet 3 Verapamil HCl ER 180 MG Oral Tablet Extended Release (Isoptin SR) Take 1 Tablet by mouth in themorning. 90 Tablet 3 Atorvastatin Calcium 20 MG Oral Tablet (Lipitor) TAKE 1 TABLET AT BEDTIME 90 Tablet 2 Furosemide 40 MG Oral Tablet (Lasix) Take 1 Tablet by mouth in the morning. 90 Tablet 1 Spironolactone 25 MG Oral Tablet (Aldactone) Take 0.5 Tablets by mouth in the morning. 45 Tablet 3 Zolpidem Tartrate 5 MG Oral Tablet (Ambien) Take 1 Tablet by mouth at bedtime as needed for Sleep. 90 Tablet 0 Clopidogrel Bisulfate 75 MG Oral Tablet (Plavix) Take 1 Tablet by mouth in the morning. 30 Tablet 5 Montelukast Sodium 10 MG Oral Tablet (Singulair) Take 1 Tablet by mouth in the morning. 90 Tablet 3 Ventolin HFA 108 (90 Base) MCG/ACT Inhalation Aerosol Solution Inhale 2 Puffs by mouth every 4 hours as needed for Cough. 18 g 3 Doxycycline Hyclate 100 MG Oral Capsule Take 1 Capsule by mouth in the morning and 1 Capsule before bedtime. Do all this for 7 days. Until gone.. 14 Capsule 0 No current facility-administered medications for this visit. Past Medical History: Diagnosis Date Atrial fibrillation (HCC) 08/18/2021 CAD (coronary artery disease) Cardiac pacemaker in situ 01/17/2022 Dyslipidemia Hypertension Iron deficiency Prediabetes Tobacco abuse Past Surgical History: Procedure Laterality Date ARTHROPLASTY KNEE TOTAL Bilateral CARDIAC STENT PLACEMENT, PERCUTANEOUS, 1 VESSEL CARDIOLOGY REFERRAL OP LAMINOTOMY, SINGLE LUMBAR TOTAL HYSTERECTOMY Review of patient's allergies indicates: Allergen Reactions Ketorolac Tromethamine Other reaction(s): Abdominal Pain Aspirin Stomach Ulcer Lisinopril Cough Nsaids Gastric ulcer Prednisone Other reaction(s): Headache "unable to sleep" Sulfamethoxazole-Trimethoprim Other reaction(s): GI Cramps Nafcillin Rash Electrolyte disturbance Family History Problem Relation Name Age of Onset COPD Mother Lung cancer Father Breast Cancer Sister Stroke Grandmother (Maternal) Parkinsonism Daughter Crohn's disease Daughter Family Status Relation Status Mo (Not Specified) Fa (Not Specified) Sis (Not Specified) MGMA (Not Specified) Collins Alive Social History Socioeconomic History Marital status: Spouse name: Not on file Number of children: Not on file Years of education: Not on file Highest education level: Not on file Occupational History Not on file Tobacco Use Smoking status: Never Passive exposure: Past Smokeless tobacco: Never Vaping Use Vaping status: Never Used Substance and Sexual Activity Alcohol use: Not Currently Drug use: Not Currently Sexual activity: Not on file Other Topics Concern Not on file Social History Narrative Not on file Social Determinants of Health Financial Resource Strain: Low Risk (03/07/2024) Financial Resource Strain Do you have any trouble paying for your medications, or do you think you might in the future? (Adult - for ages 18 years and over): No Does your family have trouble paying for medicine? (Household - for ages 0- 17 years): Not on file Food Insecurity: No Food Insecurity (03/07/2024) Food Insecurity Do you need food for this week? (Adult - for ages 18 years and over): No Are you able to get enough food for your family? (Household - for ages 0-17 years): Not on file Does your family need food this week? (Household - for ages 0-17 years): Not on file Do you always have enough food for your family? (Household - for ages 0-17 years): Not on file Transportation Needs: No Transportation Needs (03/07/2024) Transportation Needs Do you have trouble getting a ride to medical visits or work? (Adult - for ages 18 years and over): Never True Does your family have a hard time getting a ride to doctors visits? (Household - for ages 0-17 years): Not on file Has lack of transportation kept you from medical appointments, meetings, work, or from getting things needed for daily living? Check all that apply. (Adult - for ages 18 years and over): Not on file Do you (or your family) have trouble finding or paying for a ride (transportation)? (Household - for ages 0-17 years): Not on file Social Connections: Socially Integrated (03/07/2024) Social Connections How often do you feel lonely or isolated from those around you? (Adult - for ages 18 years and over): Never Housing Stability: Low Risk (03/07/2024) Housing Stability Do you currently live in a intermediate or have no steady place to sleep at night? (Adult - for ages18 years and over): No Do you think you are at risk of becoming homeless? (Adult - for ages 18 years and over): No Does your family worry about paying for your home or becoming homeless? (Household - for ages 0-17 years): Not on file Are you homeless or worried that you might be in the future? (Adult - for ages 18 years and over): Not on file Are you (or your family) homeless or worried that you might be in the future? (Household - for ages 0-17 years): Not on file Review of Systems Constitutional: Positive for activity change and fatigue. Negative for appetite change, chills, diaphoresis, fever and unexpected weight change. HENT: Positive for congestion. Respiratory: Positive for cough and chest tightness. Negative for shortness of breath and wheezing. Cardiovascular: Negative for chest pain, palpitations and leg swelling. Gastrointestinal: Negative for abdominal distention and abdominal pain. Musculoskeletal: Positive for back pain. Allergic/Immunologic: Positive for environmental allergies. Neurological: Negative for dizziness and light-headedness. Hematological: Bruises/bleeds easily. Psychiatric/Behavioral: Positive for confusion (occ). Negative for agitation and behavioral problems. Objective BP 112/70 | Pulse 86 | Temp 35.6 C (96 F) (Tympanic) | Resp 18 | Wt 57.7 kg (127 lb 3.2 oz) | SpO2 99% | BMI 20.53 kg/m | BSA 1.64 m Physical Exam Constitutional: General: She is not in acute distress. Appearance: Normal appearance. She is not ill-appearing, toxic-appearing or diaphoretic. HENT: Head: Normocephalic and atraumatic. Ears: Comments: Fluid TMs Nose: Congestion present. Eyes: Extraocular Movements: Extraocular movements intact. Cardiovascular: Rate and Rhythm: Normal rate. Rhythm irregular. Heart sounds: Murmur heard. Pulmonary: Effort: Pulmonary effort is normal. No respiratory distress. Breath sounds: No stridor. Wheezing and rhonchi (diffuse) present. No rales. Chest: Chest wall: No tenderness. Musculoskeletal: General: Tenderness (mid to lower back) present. Right lower leg: Edema present. Left lower leg: Edema present. Skin: Findings: Bruising present. Neurological: General: No focal deficit present. Mental Status: She is alert and oriented to person, place, and time. Psychiatric: Behavior: Behavior normal. ASSESSMENT/PLAN: DDD (degenerative disc disease), lumbar (Primary) Risk and functional assessment Chronic bilateral thoracic back pain - HOME HEALTH REFERRAL OP Chronic bilateral low back pain without sciatica - HOME HEALTH REFERRAL OP Allergic rhinitis due to other allergic trigger, unspecified seasonality Mild persistent asthma without complication - Ventolin HFA 108 (90 Base) MCG/ACT Inhalation Aerosol Solution; Inhale 2 Puffs by mouth every 4 hours as needed for Cough. Senile purpura (HCC) Easy bruising Coronary atherosclerosis due to lipid rich plaque Cerebrovascular accident (CVA), unspecified mechanism (HCC) Permanent atrial fibrillation (HCC) 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) Other orders - Montelukast Sodium 10 MG Oral Tablet (Singulair); Take 1 Tablet by mouth in the morning. - Doxycycline Hyclate 100 MG Oral Capsule; Take 1 Capsule by mouth in the morning and 1 Capsule before bedtime. Do all this for 7 days. Until gone.. Check-out note: Home health referral for PT PT Singualir daily Doxy Albuterol If not getting better, come back again Rachel Grimes MD documented in this encounter Nursing Notes * Kisha Billings LPN - 06/17/2024 11:19 AM EDT Chief Complaint Patient presents with Acute Pt here today due to having back pain and bleeding under the skin on her legs and arms Pt also states she has had a cough for over a month documented in this encounter Plan of Treatment Upcoming Encounters Date Type Department Care Team (Late st Contact Info) Description 06/26/2024 1:20 PM EDT Office Visit [facility] [address] [place] [phone] Tramaine Mcdonald MD [address] [place] [address] 06/27/2024 1:00 PM EDT Office Visit Neurology [facility] [address] [facility] [place] [address] Ofelia Helm MD [address] [facility] [place] [address] 09/16/2024 3:30 PM EST Imaging Radiology, [address] [place] [address] 12/22/2024 11:00 AM EDT Office Visit Cardiology, [facility] [address] [place] [address] Kathy Larkin PA-C [address] [place] [address] Scheduled Referrals Name Type Priority Associated Diagnoses Orde r Schedule HOME HEALTH REFERRAL OP Referral Within 10 days (routine) Chronic bilateral thoracic back pain Chronic bilateral low back pain without sciatica Ordered: 06/17/2024 Health Maintenance Due Date Last Done Comments [...] D LEVEL ONCE IN A LIFETIME-USE SMARTSET# [id number] Completed 08/12/2021, 06/22/2020, 01/09/2019 HPV (Gardasil) Vaccine [...] Not on filedocumented as of this encounter Visit Diagnoses Diagnosis DDD (degenerative disc disease), lumbar- Primary Degeneration of lumbar or lumbosacral intervertebral disc Risk and functional assessment Screening for unspecified condition Chronic bilateral thoracic back pain Chronic bilateral low back pain without sciatica Allergic rhinitis due to other allergic trigger, unspecified seasonality Mild persistent asthma without complication Unspecified asthma Senile purpura (HCC) Other nonthrombocytopenic purpuras Easy bruising Other symptoms involving skin and integumentary tissues Coronary atherosclerosis due to lipid rich plaque Cerebrovascular accident (CVA), unspecified mechanism (HCC) Permanent atrial fibrillation (HCC) Atrial fibrillation 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) documented in this encounter Care Teams Roving Sizer Relationship Specialty Start Date End Date Rachel Grimes MD [address] [facility] [place] [address] PCP - General Internal Medicine 04/10/24 documented as of this encounter
--- OUTSIDE RECORDS SUMMARY | 2024-06-22 10:08 | External Medical Summary | Summary of Care ---
Author Name Unknown Organization [facility] Address [address] [facility] [place] [address] Phone [phone] Care Team Providers Care Opener Name Role Phone Rachel Grimes MD Primary Care Provider [phone] Encounter Details Date Type Department Care Team (Late st Contact Info) Description 06/09/2024 Telephone [facility] [address] [place] [address] Rachel Grimes MD [address] [place] [address] Allergies Active Allergy Reactions Criticality Noted Date Comments Aspirin Medium 07/18/2018 Stomach Ulcer Ketorolac Tromethamine High 03/27/2017 Other reaction(s): Abdominal Pain Lisinopril Cough 01/17/2022 Nafcillin Rash Low 10/07/2014 Electrolyte disturbance Nsaids 07/18/2018 Gastric ulcer Prednisone 08/23/2020 Other reaction(s): Headache "unable to sleep" Sulfamethoxazole-Trimethopr im 05/31/2015 Other reaction(s): GI Cramps documented as of this encounter (statuses as of 06/09/2024) Medications Medication Sig Dispensed Refills Start Date End Date Status Fluticasone Propionate 50 MCG/ACT Nasal Suspension (Flonase) Administer 1 [place] into nostril in the morning. As needed. [...] HFA 108 (90 Base) MCG/ACT Inhalation Aerosol SolutionIndications :Mild persistent asthma without complication Inhale 2 Puffs by mouth every 4 hours as needed for Cough. 18 g 3 02/06/2023 Active Memantine HCl 10 MG Oral Tablet (Namenda) TAKE 1 TABLET IN THE MORNING 90 Tablet 3 06/25/2023 Active Pantoprazole Sodium 40 MG Oral Tablet Delayed Release (Protonix) TAKE 1 TABLET IN THE MORNING 90 Tablet 3 07/26/2023 Active Gabapentin 100 MG Oral Capsule (Neurontin) Take 1 Capsule by mouth in the morning and 1 Capsule at noon and 1 Capsule before bedtime. 90 Capsule 1 07/26/2023 Active Additional Information Patient taking differently:100 mg OralDaily(AM), Reported on 09/13/2023 Losartan Potassium 25 MG Oral Tablet (Cozaar) Take 1 Tablet by mouth in the morning. 90 Tablet 3 08/07/2023 Active Verapamil HCl ER 180 MG Oral Tablet Extended Release (Isoptin SR) Take 1 Tablet by mouth in the morning. 90 Tablet 3 08/07/2023 Active Atorvastatin Calcium 20 MG Oral Tablet (Lipitor) TAKE 1 TABLET AT BEDTIME 90 Tablet 2 11/05/2023 Active Furosemide 20 MG Oral Tablet (Lasix) Take 1 Tablet by mouth in the morning. 90 Tablet 3 03/12/2024 Active Furosemide 40 MG Oral Tablet (Lasix) Take 1 Tablet by mouth in the morning. 90 Tablet 1 03/22/2024 Active Clopidogrel Bisulfate 75 MG Oral Tablet (Plavix) Take 1 Tablet by mouth in the morning. 14 Tablet 1 04/07/2024 Active Spironolactone 25 MG Oral Tablet (Aldactone)Indicati ons:HTN, goal below 140/90,Paroxysmal atrial fibrillation (HCC),Hypokalemia,L ocalized edema Take 0.5 Tablets by mouth in the morning. 45 Tablet 3 04/09/2024 Active Zolpidem Tartrate 5 MG Oral Tablet (Ambien)Indications :Insomnia, unspecified type Take 1 Tablet by mouth at bedtime as needed for Sleep. 90 Tablet 04/22/2024 Active documented as of this encounter (statuses as of 06/09/2024) Active Problems Problem Noted Date Diagnosed Date Easy bruising 05/20/2024 Senile purpura 04/20/2023 Venous [...] as of this encounter (statuses as of 06/09/2024) Resolved Problems Problem Noted Date Diagnosed Date Resolved Date Asthma in remission 03/13/2022 03/31/20 Asthma, moderate persistent 03/13/2022 03/31/2022 Asthma, severe persistent 03/13/2022 Intermittent asthma with rel iever use up to twice per week 03/13/2022 03/31/2022 Implantable cardioverter-def ibrillator (ICD) in situ 01/17/2022 04/02/2023 Asthma 01/17/2022 03/31/2022 documented as of this encounter (statuses as of 06/09/2024) Immunizations Name Administration Dates Next Due COVID-19 mRNA, LNP-s, No Pre serve, 2-Dose Series (Trusera) 06/16/2022,09/13/2021,11/26/2020,11/05 Pneumococcal Conjugate Vacc, 13 Valent (Prevnar) [...] encounter Miscellaneous Notes * Telephone Encounter - Rachel Grimes MD - 06/09/2024 12:27 PM EDT She is seeing her cardio provider tmrw Based on her condition, lasix dose can be adjusted So please f/u their instruction on lasix dose tmrw And for now, ok to take what she has been taking daily * Telephone Encounter - Augustina Mckeon LPN - 06/09/2024 11:00 AM EDT [facility] is asking for clarification, patient is wanting to refill her Furosimied 20mg but had the 40 mg filled. Which script is the patient to be taking. documented in this encounter Plan of Treatment Upcoming Encounters Date Type Department Care Team (Late st Contact Info) Description 06/10/2024 11:00 AM EDT [facility] [place] [address] Kathy Larkin PA-C [address] [place] [address] 06/12/2024 10:40 AM EDT Office Visit [place] [address] [place] [phone] Rachel Grimes MD [address] [place] [address] 06/26/2024 1:20 PM EDT Office Visit [place] [address] [place] [facility] [place] [address] Tramaine Mcdonald MD [address] [place] [address] 06/27/2024 1:00 PM EDT Office Visit Neurology [facility] [address] [facility] [place] [address] Ofelia Helm MD [address] [facility] [place] [address] 09/16/2024 3:30 PM EST Imaging Radiology, [place] [address] [facility] [place] [address] Health Maintenance Due Date Last Done Comments [...] D LEVEL ONCE IN A LIFETIME-USE SMARTSET# 34914 Completed 08/12/2021, 06/22/2020, 01/09/2019 HPV (Gardasil) Vaccine [...] filedocumented as of this encounter Care Teams Opener Relationship Specialty Start Date End Date Rachel Grimes MD [address] [facility] [place] [address] PCP - General Internal Medicine 04/10/24 documented as of this encounter
--- OUTSIDE RECORDS SUMMARY | 2024-06-22 10:08 | External Medical Summary | Summary of Care ---
Author Name Unknown Organization [facility] Address [address] [place] [address] Phone [phone] Care Team Providers Care Prosecuting Attorney Name Role Phone Rachel Grimes MD Primary Care Provider [phone] Reason for Visit * Reason Onset Date Comments Med Request 06/12/2024 cough Encounter Details Date Type Department Care Team (Late st Contact Info) Description 06/12/2024 Telephone [facility] [address] [place] [address] Rachel Grimes MD [address] [place] [address] Med Request (cough) Allergies Active Allergy Reactions Criticality Noted Date Comments Aspirin Medium 07/18/2018 Stomach Ulcer Ketorolac Tromethamine High 03/27/2017 Other reaction(s): Abdominal Pain Lisinopril Cough 01/17/2022 Nafcillin Rash Low 10/07/2014 Electrolyte disturbance Nsaids 07/18/2018 Gastric ulcer Prednisone 08/23/2020 Other reaction(s): Headache "unable to sleep" Sulfamethoxazole-Trimethopr im 05/31/2015 Other reaction(s): GI Cramps documented as of this encounter (statuses as of 06/12/2024) Medications Medication Sig Dispensed Refills Start Date End Date Status Fluticasone Propionate 50 MCG/ACT Nasal Suspension (Flonase) Administer 1 [place] into nostril in the morning. As needed. [...] 03/22/2024 Active Spironolactone 25 MG Oral Tablet (Aldactone)Indicatio ns:HTN, goal below 140/90,Paroxysmal atrial fibrillation (HCC),Hypokalemia,Lo calized edema Take 0.5 Tablets by mouth in the morning. 45 Tablet 3 04/09/2024 Active Zolpidem Tartrate 5 MG Oral Tablet (Ambien)Indications: Insomnia, unspecified type Take 1 Tablet by mouth at bedtime as needed for Sleep. 90 Tablet 04/22/2024 Active Clopidogrel Bisulfate 75 MG Oral Tablet (Plavix) Take 1 Tablet by mouth in the morning. 30 Tablet 5 06/10/2024 Active documented as of this encounter (statuses as of 06/12/2024) Active Problems Problem Noted Date Diagnosed Date [...] as of this encounter (statuses as of 06/12/2024) Resolved Problems Problem Noted Date Diagnosed Date Resolved Date Asthma in remission 03/13/2022 03/31/20 Asthma, moderate persistent 03/13/2022 03/31/2022 Asthma, severe persistent 03/13/2022 Intermittent asthma with rel iever use up to twice per week 03/13/2022 03/31/2022 Implantable cardioverter-def ibrillator (ICD) in situ 01/17/2022 04/02/2023 Asthma 01/17/2022 03/31/2022 documented as of this encounter (statuses as of 06/12/2024) Immunizations Name Administration Dates Next Due COVID-19 mRNA, LNP-s, No Pre serve, 2-Dose Series (Achaogen) 06/16/2022,09/13/2021,11/26/2020,11/05 Pneumococcal Conjugate Vacc, 13 Valent (Prevnar) [...] encounter Miscellaneous Notes * Telephone Encounter - Natasha Corrales OSA - 06/12/2024 2:43 PM EDT No available appointments in the [facility] office or surrounding clinics today or tomorrow, cough with clear phlegm, sounds deep, head congestion, head congestion, increased sob slightly but she saidshe only sits in her rocking chair all day, denies wheezing. Can you order something for her or cansomeone overbook this patient? Thank you. * Telephone Encounter - Lindsey Haines CPhT - 06/12/2024 2:32 PM EDT Pt calling in and wanted to be transferred to scheduling to set up an appt. Thank you, Lindsey Haines CPhT Biomechanical Engineer III [facility] 06/12/2024, 2:32 PM * Telephone Encounter - Elena Rahman CPhT - 06/12/2024 2:28 PM EDT Pt calling to check on status of rx request. Caller can be reached at [phone]. Thank you, Elena Rahman CPhT Product Test Specialist II [facility] 06/12/2024,2:28 PM * Telephone Encounter - Keara Moore PHARM Tech - 06/12/2024 12:51 PM EDT Pt calling with complaints of cough and headache and is requesting a medication be prescribed. Pt did not want to schedule an appointment at this time. Call details was completed, please refer to this for further information. Thank you, Keara [facility] Biomechanical Engineer II [facility] 06/12/2024, 12:52 PM Pt calling on a refill for pcp discretion. Please uses [id number] [facility] pharmacy. Does pt need a written rx? EMarthascribe documented in this encounter Plan of Treatment Upcoming Encounters Date Type Department Care Team (Late st Contact Info) Description 06/26/2024 1:20 PM EDT Office Visit [facility] [address] [place] [facility] [place] [phone] Tramaine Mcdonald MD [address] [place] [address] 06/27/2024 1:00 PM EDT Office Visit Neurology [facility] [address] [place] [phone] Ofelia Helm MD [address] [place] [address] 09/16/2024 3:30 PM EST Imaging Radiology, [facility] [address] [facility] [place] [address] 12/22/2024 11:00 AM EDT Office Visit Cardiology, [facility] [address] [place] [address] Kathy Larkin PA-C [address] [place] [address] Health Maintenance Due Date Last Done Comments [...] D LEVEL ONCE IN A LIFETIME-USE SMARTSET# [id number] Completed 08/12/2021, 06/22/2020, 01/09/2019 HPV (Gardasil) Vaccine [...] filedocumented as of this encounter Care Teams Prosecuting Attorney Relationship Specialty Start Date End Date Rachel Grimes MD [address] [place] [address] PCP - General Internal Medicine 04/10/24 documented as of this encounter
--- OUTSIDE RECORDS SUMMARY | 2024-06-22 10:08 | External Medical Summary | Summary of Care ---
Author Name Unknown Organization [facility] Address [address] [facility] [address] Phone [phone] Care Team Providers Care Oil Well Service Unit Operator Name Role Phone Rachel Grimes MD Primary Care Provider [phone] Reason for Visit * Reason Comments Follow Up Encounter Details Date Type Department Care Team (Late st Contact Info) Description 06/10/2024 11:00 AM EDT Office Visit Cardiology, [facility] [address] [place] [address] Kathy Larkin PA-C [address] [place] [address] Paroxysmal atrial fibrillation (HCC)*; HTN, goal below 140/90; Cardiac pacemaker in situ; Presence of Watchman left atrial appendage closure device; Cerebrovascular accident (CVA), unspecified mechanism (HCC) Allergies Active Allergy Reactions Criticality Noted Date Comments Aspirin Medium 07/18/2018 Stomach Ulcer Ketorolac Tromethamine High 03/27/2017 Other reaction(s): Abdominal Pain Lisinopril Cough 01/17/2022 Nafcillin Rash Low 10/07/2014 Electrolyte disturbance Nsaids 07/18/2018 Gastric ulcer Prednisone 08/23/2020 Other reaction(s): Headache "unable to sleep" Sulfamethoxazole-Trimethopr im 05/31/2015 Other reaction(s): GI Cramps documented as of this encounter (statuses as of 06/10/2024) Medications Medication Sig Dispensed Refills Start Date End Date Status Fluticasone Propionate 50 MCG/ACT Nasal Suspension (Flonase) Administer 1 [place] into nostril in the morning. As needed. [...] HFA 108 (90 Base) MCG/ACT Inhalation Aerosol SolutionIndicatio ns:Mild persistent asthma without complication Inhale 2 Puffs [...] 03/22/2024 Active Spironolactone 25 MG Oral Tablet (Aldactone)Indica tions:HTN, goal below 140/90,Paroxysmal atrial fibrillation (HCC),Hypokalemia ,Localized edema Take 0.5 Tablets by mouth in the morning. 45 Tablet 3 04/09/2024 Active Zolpidem Tartrate 5 MG Oral Tablet (Ambien)Indicatio ns:Insomnia, unspecified type Take 1 Tablet by mouth at bedtime as needed for Sleep. 90 Tablet 04/22/2024 Active Gabapentin 100 MG Oral Capsule (Neurontin) Take 1 Capsule by mouth in the morning and 1 Capsule at noon and 1 Capsule before bedtime. 90 Capsule 1 07/26/2023 4 Discontinued Furosemide 20 MG Oral Tablet (Lasix) Take 1 Tablet by mouth in the morning. 90 Tablet 3 03/12/2024 4 Discontinued Clopidogrel Bisulfate 75 MG Oral Tablet (Plavix) Take 1 Tablet by mouth in the morning. 14 Tablet 1 04/07/2024 4 Discontinued documented as of this encounter (statuses as of 06/10/2024) Active Problems Problem Noted Date Diagnosed Date [...] as of this encounter (statuses as of 06/10/2024) Resolved Problems Problem Noted Date Diagnosed Date Resolved Date Asthma in remission 03/13/2022 03/31/20 Asthma, moderate persistent 03/13/2022 03/31/2022 Asthma, severe persistent 03/13/2022 Intermittent asthma with rel iever use up to twice per week 03/13/2022 03/31/2022 Implantable cardioverter-def ibrillator (ICD) in situ 01/17/2022 04/02/2023 Asthma 01/17/2022 03/31/2022 documented as of this encounter (statuses as of 06/10/2024) Immunizations Name Administration Dates Next Due COVID-19 [...] Passive Smoke Exposure: Past Smokeless Tobacco: Never Tobacco Cessation:Counseling Given: Not Answered Alcohol Use Standard Drinks/Week Comments Not Currently [...] Sign Reading Time Taken Comments Blood Pressure 116/68 06/10/2024 11:02 AM EDT Pulse 78 06/10/2024 11:02 AM EDT Temperature - - Respiratory Rate - - Oxygen Saturation 97% 06/10/2024 11:02 AM EDT Inhaled Oxygen Concentration - - Weight 58.1 kg (128 lb) 06/10/2024 11:02 AM EDT Height - - Body Mass Index 20.66 05/20/2024 11:26 AM EDT documented in this encounter Progress Notes * Kathy Larkin PA-C - 06/10/2024 11:05 AM EDT 06/10/2024 Cardiology F/U: HPI: Patient is a 83-year-old female here today with her sister for routine cardiology follow-up. Last clinic evaluation approximately 1 year ago. History includes: PAF S/P Watchman in [place] - FILI 08/2022 with appropriate closure. 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 Follows with neurology. No PFO/shunt Dementia In April 19, 2024, patient had several hours of numbness/tingling in the right side of her face associated with right hand numbness. She saw her PCP and head CT was ordered which demonstrated left thalamic lacunar infarction. She was sent to Neurology for evaluation. Unfortunately due to her pacemaker status, she was not a candidate for brain MRI. She had been on aspirin prior to this event. Plavix was added. Per chart review of notes, aspirin and Plavix were to be continued for 3 weeksthen aspirin discontinued. In the interim, she also saw hematology for excessive bruising. No bleeding complications. They felt degree of bruising was acceptable and likely due to medications. No concerns. She presents today and ASA only was on her med list. She believes she "finished" the plavix prescription and stopped therapy but I'm unable to find this in [facility] if she was supposed to stop therapy. She has had no recurrent events, TIA or CVA symptoms. She also had echo which demonstrated preserved EF, no PFO/shunt. She voices no acute cardiac concerns at this time. Review of systems is limited due to possible underlying dementia. No chest pain, shortness of breath, palpitations, dizziness, syncope or near syncope. No orthopnea,PND, or increased lower extremity edema. No fever, chills, cough, hematochezia, melena, or hemoptysis. Review of Systems: See HPI for pertinent positives. All others negative, other than those noted in HPI. Patient Active Problem List Diagnosis Osteoporosis Dyslipidemia [...] of both lower extremities Insomnia Easy bruising Past Surgical History: Procedure Laterality Date ARTHROPLASTY KNEE TOTAL Bilateral CARDIAC STENT PLACEMENT, PERCUTANEOUS, 1 VESSEL CARDIOLOGY REFERRAL OP LAMINOTOMY, SINGLE LUMBAR TOTAL HYSTERECTOMY Family History Problem Relation Name Age of Onset COPD Mother Lung cancer Father Breast Cancer Sister Stroke Grandmother (Maternal) Parkinsonism Daughter Crohn's disease Daughter Social History Tobacco Use Smoking status: Never Passive exposure: Past Smokeless tobacco: Never Vaping Use Vaping status: Never Used Substance Use Topics Alcohol use: Not Currently Drug use: Not Currently Allergies as of 06/10/2024 - Reviewed 06/10/2024 Allergen Reaction Noted Ketorolac tromethamine 03/27/2017 Aspirin 07/18/2018 Lisinopril Cough 01/17/2022 Nsaids 07/18/2018 Prednisone 08/23/2020 Sulfamethoxazole-trimethoprim 05/31/2015 Nafcillin Rash 10/07/2014 Current Outpatient Medications Medication Sig Dispense Refill Fluticasone Propionate 50 MCG/ACT Nasal Suspension (Flonase) Administer 1 [place] into nostril in themorning. As needed. Polyethylene Glycol 3350 17 GM/SCOOP Oral Powder (Miralax) Take 17 g by mouth. As needed RA Laxative 5 MG Oral Tablet Delayed Release Take 1 Tablet by mouth in the morning. Aspirin Low Dose 81 MG Oral Tablet Delayed Release Take 1 Tablet (81 mg) by mouth in the morning. 90 Tablet 3 Ventolin HFA 108 (90 Base) MCG/ACT Inhalation Aerosol Solution Inhale 2 Puffs by mouth every 4 hours as needed for Cough. 18 g 3 Memantine HCl 10 MG Oral Tablet (Namenda) [...] mouth in the morning. 90 Tablet 3 Atorvastatin Calcium 20 MG [...] as needed for Sleep. 90 Tablet 0 No current facility-administered medications for this visit. PHYSICAL EXAM: Vital Signs: BP 116/68 | Pulse 78 | Wt 58.1 kg (128 lb) | SpO2 97% | BMI 20.66 kg/m | BSA 1.64 m General: Awake, alert and oriented x 3. No acute distress. HEENT: Normocephalic, atraumatic. Pupils equal, round and reactive to light and accommodation. Extraocular muscles are intact. Anicteric sclera. Moist mucous membranes. Neck: No JVD. No bruit. Cardiovascular: Regular. Normal S-1 and S-2. No S-3. 3/6 mid to late systolic ejection murmur, greatest at the right sternal border, second intercostal space with radiation to the bilateral carotids.No rubs. Pulmonary: Clear to auscultation bilaterally. No rales, rhonchi, or wheezing. Abdomen: Bowel sounds x 4, soft. No rebound, guarding or tenderness. No organomegaly. Extremities: 1+ edema B/L with venous stasis changes Skin: Warm and dry. Cardiac studies/labs: Device interrogation reviewed from May 20, 2024: Appropriate function and battery longevity of 3.2-3.8 years 34% atrial paced, 4% ventricular paced Total Afib burden 63% Echocardiogram report reviewed dated April 19, 2024: Interpretation Summary The rhythm during the transthoracic echo examination was atrial fibrillation with controlled ventricular response. The qualitative LV ejection fraction is 60-64% (normal). The septal motion is abnormal consistent with right ventricular pacemaker. The left atrium is severely enlarged (>48 ml/m^2,). Mild mitral regurgitation is present. Bqip-ae-wottcegf tricuspid regurgitation. There is no evidence of pulmonary hypertension. A trivial circumferential pericardial effusion is noted. Cardiac tamponade is absent. The proximal ascending thoracic aorta is mildly enlarged. No evidence of intracardiac shunt with injection of agitated saline contrast. Fili report reviewed dated 08/2022, completed at outside hospital: Left Ventricle: Left ventricle cavity appears normal. Wall thickness is normal. Systolic function is normal with an ejection fraction of 55-60%. Right Ventricle: Right ventricle cavity appears normal. Systolic function is normal. Left Atrium: Left atrium cavity is mildly dilated. The left atrial appendage is abnormal. There is a Watchman closure device which completely occludes the left atrial appendage. There is no atrial septal defect. Right Atrium: Right atrium cavity is normal. IVC/SVC: The inferior vena cava was not assessed. Mitral Valve: Mitral valve structure is normal. There is mild to moderate regurgitation. There is no stenosis. Tricuspid Valve: Tricuspid valve structure is normal. There is mild regurgitation. There is no evidence of tricuspid valve stenosis. Aortic Valve: The aortic valve is tri leaflet. There is no regurgitation or stenosis. Pulmonic Valve / Artery: Pulmonic valve structure is normal. The pulmonary artery is normal. There is no pulmonary hypertension. Aorta: The aorta appears normal in size. Pericardium: There is no pericardial effusion Latest Reference Range & Units 07/06/23 12:15 Triglycerides <=174 mg/dL 65 Cholesterol <200 mg/dL 151 Non-HDL Cholesterol <=159 mg/dL 93 HDL Cholesterol >49 mg/dL 58 LDL Cholesterol <=129 mg/dL 80 IMPRESSION: 83 year old female Coronary disease -stable Paroxysmal atrial fibrillation status post Watchman procedure - asymptomatic. Continue verapamil. No longer on anticoagulation Status post pacemaker - appropriate function Dementia Hypertension Dyslipidemia Edema CVA March 2024 - left lacunar infarct. No PFO/shunt. Following with neurology. Was to be on ASA and plavix for 3 weeks, then ASA to be stopped and plavix continued. Mildly enlarged ascending aorta at 3.9 PLAN Patient reports she is no longer taking plavix and that this was to be stopped when she "ran out ofmedication". Per notes, it appears ASA was to be stopped and plavix continued. Will message neurology. She has f/u later this month. In the meantime, she did see hematology for bruising. Plavix continued per notes. No concerning findings. Update lipids. Goal LDL < 70. Consider increasing statin. Routine device interrogation every 3 months. Recent echo revealed with normal LVEF, no shunt, mildly enlarged ascending aorta. No concerning findings. The patient is to continue all current medications as listed above. No changes were made at today'svisit. Patient is being evaluated in the cardiology office for ongoing care/risk management for PAF; pacemaker; HTN; dyslipidemia; CAD I spent a total of 35 minutes on the date of service in preparation, delivery, and documentation ofthe care provided to Luna Chino excluding any time spent in the performance of separately billedservices. The patient agrees to the above plan and will call with additional questions or concerns. ER with all emergencies advised. Follow Up: Return in about 6 months (around 12/08/2024). Kathy Larkin PA-C Department of Cardiology This chart was completed in part utilizing [employer] Speech Voice Recognition Software. Grammatical errors, random word insertions, prounoun errors, and incomplete sentences are an occasional consequence of this system due to software limitations, ambient noise, and hardware issues. Any formal questions or concerns about the content, text, or information contained within the body of this dictation should be directly addressed to the provider for clarification. documented in this encounter Nursing Notes * Michelle Boucher CMA - 06/10/2024 11:01 AM EDT Examination Room: 1 Name: Luna Chino Date of : (1940) Reason for Visit: 1yr Interim Hospitalization(s): none Problems/Concerns: denied Chest Pain/SOB: denied My [facility] is a way you can talk to your provider online through e-mail. Would you like to sign up? I can activate it for you? ALREADY ACTIVE Patient was instructed to not get up on the exam table until directed and assisted by their provider; patient is to remain seated in the chair/ wheelchair/ exam table for fall prevention and safety reasons. Patient is aware to have assistance to step down off exam table with personnel. Patient voiced full comprehension of instructions. documented in this encounter Plan of Treatment Upcoming Encounters Date Type Department Care Team (Late st Contact Info) Description 06/12/2024 10:40 AM EDT Office Visit [place] [address] [facility] [place] [id number] Rachel Grimes MD [address] [place] [address] 06/26/2024 1:20 PM EDT Office Visit [facility] [address] [place] [phone] Tramaine Mcdonald MD [address] [place] [address] 06/27/2024 1:00 PM EDT Office Visit Neurology [facility] [address] [facility] [place] [address] Ofelia Helm MD [address] [facility] [place] [address] 09/16/2024 3:30 PM EST Imaging Radiology, [address] [place] [address] 12/22/2024 11:00 AM EDT Office Visit Cardiology, [facility] [address] [facility] [place] [address] Kathy Larkin PA-C [address] [place] [address] Scheduled Orders Name Type Priority Associated Diagnoses Orde r Schedule LIPID PANEL WITH DIRECT LDL IF TG IS HIGH Lab Routine HTN, goal below 140/90 Paroxysmal atrial fibrillation (HCC) Cardiac pacemaker in situ Expected: 06/10/2024, Expires: 06/10/2025 COMPREHENSIVE METABOLIC PANEL Lab Routine HTN, goal below 140/90 Paroxysmal atrial fibrillation (HCC) Cardiac pacemaker in situ Expected: 06/10/2024, Expires: 06/10/2025 Health Maintenance Due Date Last Done Comments [...] D LEVEL ONCE IN A LIFETIME-USE SMARTSET# [id number] Completed 08/12/2021, 06/22/2020, 01/09/2019 HPV (Gardasil) Vaccine [...] as of this encounter Visit Diagnoses Diagnosis Paroxysmal atrial fibrillation (HCC)- Primary Atrial fibrillation HTN, goal below 140/90 Unspecified essential hypertension Cardiac pacemaker in situ Presence of Watchman left atrial appendage closure device Cerebrovascular accident (CVA), unspecified mechanism (HCC) documented in this encounter Care Teams Oil Well Service Unit Operator Relationship Specialty Start Date End Date Rachel Grimes MD [address] [place] [address] PCP - General Internal Medicine 04/10/24 documented as of this encounter
--- OUTSIDE RECORDS SUMMARY | 2024-06-22 10:08 | External Medical Summary | Summary of Care ---
Author Name Unknown Organization [facility] Address [address] [place] [address] Phone [phone] Care Team Providers Care Cytologist Name Role Phone Rachel Grimes MD Primary Care Provider [phone] Reason for Visit * Reason Onset Date Comments MyCode Nonconsent - Not interested at this time 04/22/2024 Encounter Details Date Type Department Care Team (Late st Contact Info) Description 04/22/2024 Orders Only Outcomes Research Department [address] [place] [address] Jessica Becerra CHRA MyCode Nonconsent Documentation Allergies Active Allergy Reactions Criticality Noted Date Comments Aspirin Medium 07/18/2018 Stomach Ulcer Ketorolac Tromethamine High 03/27/2017 Other reaction(s): Abdominal Pain Lisinopril Cough 01/17/2022 Nafcillin Rash Low 10/07/2014 Electrolyte disturbance Nsaids 07/18/2018 Gastric ulcer Prednisone 08/23/2020 Other reaction(s): Headache "unable to sleep" Sulfamethoxazole-Trimethopr im 05/31/2015 Other reaction(s): GI Cramps documented as of this encounter (statuses as of 05/08/2024) Medications Medication Sig Dispensed Refills Start Date End Date Status Fluticasone Propionate 50 MCG/ACT Nasal Suspension (Flonase) Administer 1 [place] into nostril in the morning. As needed. 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 Venous stasis dermatitis of [...] as of this encounter (statuses as of 05/08/2024) Resolved Problems Problem Noted Date Diagnosed Date Resolved Date Asthma in remission 03/13/2022 03/31/20 Asthma, moderate persistent 03/13/2022 03/31/2022 Asthma, severe persistent 03/13/2022 Intermittent asthma with rel iever use up to twice per week 03/13/2022 03/31/2022 Implantable cardioverter-def ibrillator (ICD) in situ 01/17/2022 04/02/2023 Asthma 01/17/2022 03/31/2022 documented as of this encounter (statuses as of 05/08/2024) Immunizations Name Administration Dates Next Due COVID-19 mRNA, LNP-s, No Pre serve, 2-Dose Series ([employer]) 06/16/2022,09/13/2021,11/26/2020,11/05 Pneumococcal Conjugate Vacc, 13 Valent (Prevnar) 01/19/2016 Pneumococcal Polysaccharide PPV23 (Pneumovax) 06/14/2018,08/30/2012 Seasonal Influenza, Quadriva lent Hd (Fluzone Hd) 08/07/2023,06/09/2022 Seasonal Influenza, Recombin ant, RIV4, PF, (Flublock) 08/12/2021,07/14/2019,07/02/2018 Seasonal Influenza, Split, I IV3, With Preserve, Inj 06/08/2020,07/14/2019,07/02/2018,06/28,06/27/2016,07/16/2015,07/08/2014 ,07/03/2013,06/13/2012 TDAP (age 10 and older)(Boostrix) [...] on file documented as of this encounter Progress Notes * Jessica Becerra CHRA - 04/22/2024 2:01 PM EDT [employer] Nonconsent Documentation Luna Chino was approached in the clinic regarding participation in the [employer] Project and did not consent. documented in this encounter Plan of Treatment Upcoming Encounters Date Type Department Care Team (Late st Contact Info) Description 05/14/2024 11:15 AM EDT [address] Rad[address] [address] 05/14/2024 12:30 PM EDT Imaging Radiology [address] [place] [address] 05/20/2024 11:30 AM EDT Office Visit Hematology/Oncology [facility] [address] [facility] [place] [phone] Pan Leal MD 200 [facility] [place] [address] 06/10/2024 11:00 AM EDT Office Visit Cardiology, [facility] 132 [facility] [place] [address] Kathy Larkin PA-C 132 [facility] [place] [address] 06/26/2024 1:20 PM EDT Office Visit [facility] [address] [place] [address] Tramaine Mcdonald MD [address] [place] [address] 06/27/2024 1:00 PM EDT Office Visit Neurology [facility] [address] [facility] [address] [place] [address] Ofelia Helm MD [address] [facility] [place] [address] 09/16/2024 3:30 PM EST Imaging Radiology, [address] [place] [address] Health Maintenance Due Date Last Done Comments Zoster Vaccines (1 of 2) 1989 Adult Wellness Visit 2005 *SPIROMETRY ONCE FOR ASTHMA-ADULT 03/15/2022 COVID-19 Vaccine (2022- season) 2023 03/24/2023, 09/19/2022, 06/16/2022, Additional history exists DXA Scan 11/28/2023 11/28/2021, 12/31, 01/27/2019, Additional history exists *BISPHONATE OR OTHER ACCEPTABLE MEDICATION NEEDED FOR OSTEOPOROSIS (REFER TO SMARTSET #1146) 04/09/2024 Influenza Vaccine (FLU shot) (#1) 2024 08/07/2023, 06/09/2022, 08/12/2021, Additional history exists HbA1c 10/24/2024 10/24/2023, 07/0 11/2022, 01/16/2022 Depression Screening 03/07/2025 03/07/2024 GFR 04/22/2025 04/22/2024, 06/0 03/2024, 10/24/2023, Additional history exists Albumin/Creatinine Ratio 06/15/2025 06/15/2022 DTaP,Tdap,and Td Vaccines (3 - Td or Tdap) 03/02/2028 03/02/2018, 01/28/2016 Pneumococcal Vaccine: 65+ Years Completed 06/14/2018, 01/19/2016, 08/30/2012 VITAMIN D LEVEL ONCE IN A LIFETIME-USE SMARTSET# [id number] Completed 08/12/2021, 06/22/2020, 01/09/2019 HPV (Gardasil) Vaccine [...] filedocumented as of this encounter Care Teams Cytologist Relationship Specialty Start Date End Date Rachel Grimes MD [address] [place] [address] PCP - General Internal Medicine 04/10/24 documented as of this encounter
--- OUTSIDE RECORDS SUMMARY | 2024-06-22 10:08 | External Medical Summary | Summary of Care ---
Author Name Unknown Organization [facility] Address [address] [facility] [address] Phone [phone] Care Team Providers Care Nipple Machine Operator Name Role Phone Rachel Grimes MD Primary Care Provider [phone] Encounter Details Date Type Department Care Team (Late st Contact Info) Description 06/09/[address] [facility] [address] [place] [address] Rachel Grimes MD [address] [place] [address] Allergies Active Allergy Reactions Criticality [...] 50 MCG/ACT Nasal Suspension (Flonase) Administer 1 [place] into nostril in the morning. As needed. [...] mRNA, LNP-s, No Pre serve, 2-Dose Series ([employer]) 06/16/2022,09/13/2021,11/26/2020,11/05 Pneumococcal Conjugate Vacc, 13 Valent (Prevnar) [...] encounter Miscellaneous Notes * Telephone Encounter - Tramaine Mcdonald MD - 06/09/2024 5:37 PM EDT Looks like she was increased to 40 mg - continue that unless cards changes. * Telephone Encounter - Rachel Grimes MD [...] 06/10/2024 11:00 AM EDT Office Visit Cardiology, [facility] [address] [place] [address] Kathy Larkin PA-C [address] [place] [address] 06/12/2024 10:40 AM EDT Office Visit [address] [place] [address] Rachel Grimes MD [address] [place] [address] 06/26/2024 1:20 PM EDT Office Visit [facility] [address] [place] [facility] [place] [phone] Tramaine Mcdonald MD [address] [facility] [place] [address] 06/27/2024 1:00 PM EDT Office Visit Neurology [address] [place] [address] [place] [address] Ofelia Helm MD [address] [place] [address] 09/16/2024 3:30 PM EST Imaging Radiology, [facility] [address] [facility] [place] [address] Health Maintenance Due Date Last Done Comments [...] D LEVEL ONCE IN A LIFETIME-USE SMARTSET# [id number] Completed 08/12/2021, 06/22/2020, 01/09/2019 HPV (Gardasil) Vaccine [...] filedocumented as of this encounter Care Teams Nipple Machine Operator Relationship Specialty Start Date End Date Rachel Grimes MD [address] [place] [address] PCP - General Internal Medicine 04/10/24 documented as of this encounter
--- OUTSIDE RECORDS SUMMARY | 2024-06-22 10:08 | External Medical Summary | Summary of Care ---
Author Name Unknown Organization [facility] Address [address] [facility] [facility] [address] Phone [phone] Care Team Providers Care Warehouse Forklift Operator Name Role Phone Rachel Grimes MD Primary Care Provider [phone] Encounter Details Date Type Department Care Team (Late st Contact Info) Description 05/18/2024 Result Scan Unspecified Department Ofelia Bradley, DO [address] [facility] [place] [address] <No scans attached> Allergies Active Allergy Reactions Criticality Noted Date Comments Aspirin Medium 07/18/2018 Stomach Ulcer Ketorolac Tromethamine High 03/27/2017 Other reaction(s): Abdominal Pain Lisinopril Cough 01/17/2022 Nafcillin Rash Low 10/07/2014 Electrolyte disturbance Nsaids 07/18/2018 Gastric ulcer Prednisone 08/23/2020 Other reaction(s): Headache "unable to sleep" Sulfamethoxazole-Trimethopr im 05/31/2015 Other reaction(s): GI Cramps documented as of this encounter (statuses as of 05/18/2024) Medications Medication Sig Dispensed Refills Start Date End Date Status Fluticasone Propionate 50 MCG/ACT Nasal Suspension (Flonase) Administer 1 [place] into nostril in the morning. As needed. [...] as of this encounter (statuses as of 05/18/2024) Active Problems Problem Noted Date Diagnosed Date [...] as of this encounter (statuses as of 05/18/2024) Resolved Problems Problem Noted Date Diagnosed Date Resolved Date Asthma in remission 03/13/2022 03/31/20 Asthma, moderate persistent 03/13/2022 03/31/2022 Asthma, severe persistent 03/13/2022 Intermittent asthma with rel iever use up to twice per week 03/13/2022 03/31/2022 Implantable cardioverter-def ibrillator (ICD) in situ 01/17/2022 04/02/2023 Asthma 01/17/2022 03/31/2022 documented as of this encounter (statuses as of 05/18/2024) Immunizations Name Administration Dates Next Due COVID-19 mRNA, LNP-s, No Pre serve, 2-Dose Series ([employer] 06/16/2022,09/13/2021,11/26/2020,11/05 Pneumococcal Conjugate Vacc, 13 Valent (Prevnar) [...] on file documented as of this encounter Plan of Treatment Upcoming Encounters Date Type Department Care Team (Late st Contact Info) Description 05/20/2024 11:30 AM EDT Office Visit Hematology/Oncology [facility] [address] [place] [address] Pan Leal MD [address] [place] [address] 06/10/2024 11:00 AM EDT Office Visit Cardiology, [facility] [address] [place] [address] Kathy Larkin, ISABEL [address] [place] [address] 06/26/2024 1:20 PM EDT Office Visit Family [facility] [place] [address] [place] [facility] [place] [address] Tramaine Mcdonald MD [address] [place] [address] 06/27/2024 1:00 PM EDT Office Visit Neurology [facility] [address] [facility] [place], [place] [address] Ofelia Helm MD [address] [facility] [place], [place] [address] 09/16/2024 3:30 PM EST Imaging Radiology, [address] [place], [place] [address] Health Maintenance Due Date Last Done Comments Zoster Vaccines (1 of 2) 1989 Adult Wellness Visit 2005 *SPIROMETRY ONCE FOR ASTHMA-ADULT 03/15/2022 COVID-19 Vaccine ( season) 2023 03/24/2023, 09/19/2022, 06/16/2022, Additional history exists DXA Scan 11/28/2023 11/28/2021, 12/31, 01/27/2019, Additional history exists *BISPHONATE OR OTHER ACCEPTABLE MEDICATION NEEDED FOR OSTEOPOROSIS (REFER TO SMARTSET #1146) 04/09/2024 Influenza Vaccine (FLU shot) (#1) 2024 08/07/2023, 06/09/2022, 08/12/2021, Additional history exists HbA1c 10/24/2024 10/24/2023, 070 11/2022, 01/16/2022 Depression Screening 03/07/2025 03/07/2024 GFR 04/22/2025 04/22/2024, 03/2024, 10/24/2023, Additional history exists Albumin/Creatinine Ratio 06/15/2025 06/15/2022 DTaP,Tdap,and Td Vaccines (3 - Td or Tdap) 03/02/2028 03/02/2018, 01/28/2016 Pneumococcal Vaccine: 65+ Years Completed 06/14/2018, 01/19/2016, 08/30/2012 VITAMIN D LEVEL ONCE IN A LIFETIME-USE SMARTSET# [id number] Completed 08/12/2021, 06/22/2020, 01/09/2019 HPV (Gardasil) Vaccine [...] Not on filedocumented as of this encounter Procedures Procedure Name Priority Date/Time Associated Diagnosis Comments CARDIOLOGY SCANNED RESULT 05/18/2024 documented in this encounter Results * CARDIOLOGY SCANNED RESULT (05/18/2024) 05/18/2024 Ofelia Bradley DO OTHER documented in this encounter Care Teams Warehouse Forklift Operator Relationship Specialty Start Date End Date Rachel Grimes MD [address], [place] [phone] PCP - General Internal Medicine 04/10/24 documented as of this encounter
--- OUTSIDE RECORDS SUMMARY | 2024-06-22 10:08 | External Medical Summary | Summary of Care ---
Author Name Unknown Organization [facility] Address [address] [facility] [place] [address] Phone [phone] Care Team Providers Care Rib Knitter Name Role Phone Rachel Grimes MD Primary Care Provider [phone] Encounter Details Date Type Department Care Team (Late st Contact Info) Description 06/12/2024 Orders Only PATIENT PORTAL DO NOT DELETE THIS DEPT USED BY [place] [address] Allergies Active Allergy Reactions Criticality Noted Date [...] 50 MCG/ACT Nasal Suspension (Flonase) Administer 1 [place] into nostril in the morning. As needed. [...] mRNA, LNP-s, No Pre serve, 2-Dose Series ([employer]) 06/16/2022,09/13/2021,11/26/2020,11/05 Pneumococcal Conjugate Vacc, 13 Valent (Prevnar) [...] Description 06/12/2024 10:40 AM EDT Office Visit [place] [address] [place] [phone] Rachel Grimes MD [address] [place] [address] 06/26/2024 1:20 PM EDT Office Visit [place] [address] [place] [phone] Tramaine Mcdonald MD [address] [place] [address] 06/27/2024 1:00 PM EDT Office Visit Neurology [facility] [place] [address] [place], [place] [address] Ofelia Helm MD [address] [place] [address] 09/16/2024 3:30 PM EST Imaging Radiology, [facility] [address] [facility] [place], [place] [address] 12/22/2024 11:00 AM EDT Office Visit Cardiology, [facility] [address] [place] [address] Kathy Larkin, [place] [address] [place] [address] Health Maintenance Due Date Last Done Comments [...] D LEVEL ONCE IN A LIFETIME-USE SMARTSET# [id number] Completed 08/12/2021, 06/22/2020, 01/09/2019 HPV (Gardasil) Vaccine [...] filedocumented as of this encounter Care Teams Rib Knitter Relationship Specialty Start Date End Date Rachel Grimes MD [address] [place] [address] PCP - General Internal Medicine 04/10/24 documented as of this encounter
--- OUTSIDE RECORDS SUMMARY | 2024-06-22 10:08 | External Medical Summary | Summary of Care ---
Author Name Unknown Organization [facility] Address [address] [place] [facility] [place] [address] Phone [phone] Care Team Providers Care Slot Machine Department Floorperson Name Role Phone Rachel Grimes MD Primary Care Provider [phone] Reason for Visit * Reason Onset Date Comments Med Request 06/12/2024 cough Encounter Details Date Type Department Care Team (Late st Contact Info) Description 06/12/[address] [facility] [address] [place] [address] Rachel Grimes MD [address] [place] [address] Med Request (cough) Allergies Active [...] 50 MCG/ACT Nasal Suspension (Flonase) Administer 1 [place] into nostril in the morning. As needed. [...] mRNA, LNP-s, No Pre serve, 2-Dose Series ([employer]) 06/16/2022,09/13/2021,11/26/2020,11/05 Pneumococcal Conjugate Vacc, 13 Valent (Prevnar) [...] encounter Miscellaneous Notes * Telephone Encounter - Lisseth Thompson LPN - 06/12/2024 4:23 PM EDT Pt scheduled with Dr. Michaels 06/13/24 * Telephone Encounter - Natasha Corrales OSA - 06/12/2024 2:43 PM EDT No available appointments in the [facility] office or surrounding clinics today or tomorrow, [...] an appt. Thank you, Lindsey Haines CPhT Sole Polisher III [facility] 06/12/2024, 2:32 PM * Telephone Encounter - Elena Rahman CPhT - 06/12/2024 2:28 PM EDT Pt calling to check on status of rx request. Caller can be reached at [phone]. Thank you, Elena Rahman CPhT Supervising Producer II [facility] 06/12/2024,2:28 PM * Telephone Encounter - Keara Moore PHARM Tech - 06/12/2024 12:51 PM EDT Pt calling with complaints of cough and headache and is requesting a medication be prescribed. Pt did not want to schedule an appointment at this time. Call details was completed, please refer to this for further information. Thank you, Keara Moore [facility] Sole Polisher II [facility] 06/12/2024, 12:52 PM Pt calling on a refill for pcp discretion. Please uses [id number] [place] [address] [facility] pharmacy. Does pt need a written rx? Epresleyibe documented in this encounter Plan of Treatment Upcoming Encounters Date Type Department Care Team (Late st Contact Info) Description 06/13/2024 1:40 PM EDT Office Visit [address] [address] Jonas Michaels MD [address] [place] [address] 06/26/2024 1:20 PM EDT Office Visit Family Practice, [place] [address] [place] [address] Tramaine Mcdonald MD [address] [place] [address] 06/27/2024 1:00 PM EDT Office Visit Neurology [facility] [address] [place] [address] Ofelia Helm MD [address] [facility] [place] [address] 09/16/2024 3:30 PM EST Imaging Radiology, [address] [place] [address] 12/22/2024 11:00 AM EDT Office Visit Cardiology, [facility] [address] [place] [address] Kathy Larkin PA-C [address] [place] [address] Health Maintenance Due Date Last Done Comments [...] Depression Screening 03/07/2025 03/07/2024 GFR 04/22/2025 04/22/2024, 060 03/2024, 10/24/2023, Additional history exists Albumin/Creatinine Ratio 06/15/2025 06/15/2022 DTap/Tdap Vaccines (3 - Td or Tdap) 03/02/2028 03/02/2018, 01/28/2016 Pneumococcal Vaccine: 65+ Years Completed 06/14/2018, 01/19/2016, 08/30/2012 VITAMIN D LEVEL ONCE IN A LIFETIME-USE SMARTSET# [id number] Completed 08/12/2021, 06/22/2020, 01/09/2019 HPV (Gardasil) Vaccine [...] filedocumented as of this encounter Care Teams Slot Machine Department Floorperson Relationship Specialty Start Date End Date Rachel Grimes MD [address] [facility] [place] [address] PCP - General Internal Medicine 04/10/24 documented as of this encounter
--- OUTSIDE RECORDS SUMMARY | 2024-06-22 10:08 | External Medical Summary | Summary of Care ---
Author Name Unknown Organization [facility] Address [address] [facility] [address] Phone [phone] Care Team Providers Care Swatch Cutter Name Role Phone Rachel Grimes MD Primary Care Provider [phone] Encounter Details Date Type Department Care Team (Late st Contact Info) Description 06/09/2024 Telephone [facility] [address] [place] [address] Rachel Grimes MD [address] [place] [address] Allergies Active Allergy Reactions Criticality [...] 50 MCG/ACT Nasal Suspension (Flonase) Administer 1 [place] into nostril in the morning. As needed. [...] in the morning. 14 Tablet 1 04/07/2024 Discontinued documented as of this encounter (statuses [...] mRNA, LNP-s, No Pre serve, 2-Dose Series ([employer]) 06/16/2022,09/13/2021,11/26/2020,11/05 Pneumococcal Conjugate Vacc, 13 Valent (Prevnar) [...] Telephone Encounter - Lisseth Thompson LPN - 06/10/2024 3:26 PM EDT 20 mg was d/c * Telephone Encounter - Tramaine Mcdonald MD [...] Description 06/12/2024 10:40 AM EDT Office Visit [place] [address] [place] [address] Rachel Grimes MD [address] [place] [address] 06/26/2024 1:20 PM EDT Office Visit [facility] [address] [place] [phone] Tramaine Mcdonald MD [address] [place] [address] 06/27/2024 1:00 PM EDT Office Visit Neurology [facility] [place] [address] [facility] [place] [address] Ofelia Helm MD [address] [facility] [place] [address] 09/16/2024 3:30 PM EST Imaging Radiology, [facility] [address] [facility] [place] [address] 12/22/2024 11:00 AM EDT Office Visit Cardiology, [facility] [address] [place] [address] Kathy Larkin, ISABEL [address] [place] [address] Health Maintenance Due Date Last Done Comments [...] D LEVEL ONCE IN A LIFETIME-USE SMARTSET# [id number] Completed 08/12/2021, 06/22/2020, 01/09/2019 HPV (Gardasil) Vaccine [...] filedocumented as of this encounter Care Teams Swatch Cutter Relationship Specialty Start Date End Date Rachel Grimes MD [address] [place] [address] PCP - General Internal Medicine 04/10/24 documented as of this encounter
--- OUTSIDE RECORDS SUMMARY | 2024-06-22 10:08 | External Medical Summary | Summary of Care ---
Author Name Unknown Organization [facility] Address [address] [place] [address] Phone [phone] Care Team Providers Care Farm Owner Operator Name Role Phone Rachel Grimes MD Primary Care Provider [phone] Reason for Visit * Reason Comments Follow Up Follow up of fallHea dache, back ache, and swelling of ankles. 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 As needed. 1 Active Polyethylene Glycol 3350 17 GM/SCOOP Oral Powder (Miralax) Take 17 g by mouth. As needed 1 Active RA Laxative 5 MG Oral Tablet Delayed Release Take 1 Tablet by mouth in the morning. 2 Active Aspirin Low Dose 81 MG Oral Tablet Delayed Release Take 1 Tablet (81 mg) by mouth in the morning. 90 Tablet 3 2 Active Ventolin HFA 108 (90 Base) MCG/ACT Inhalation Aerosol SolutionIndicatio ns:Mild persistent asthma without complication Inhale 2 Puffs by mouth every 4 hours as needed for Cough. 18 g 3 3 Active Memantine HCl 10 MG Oral Tablet (Namenda) TAKE 1 TABLET IN THE MORNING 90 Tablet 3 3 Active Pantoprazole Sodium 40 MG Oral Tablet Delayed Release (Protonix) TAKE 1 TABLET IN THE MORNING 90 Tablet 3 3 Active Cetirizine HCl 10 MG Oral Tablet (ZyrTEC) Take 1 Tablet by mouth as needed. 1 04/07/20 24 Discontinued Verapamil HCl ER 180 MG Oral Tablet Extended Release (Isoptin SR) Take 1 Tablet (180 mg) by mouth in the morning. 90 Tablet 3 2 08/07/20 23 Discontinued(Ref ill) Atorvastatin Calcium 20 MG Oral Tablet (Lipitor) Take 1 Tablet (20 mg) by mouth at bedtime. 90 Tablet 3 2 11/05/19 24 Discontinued Losartan Potassium 25 MG Oral Tablet (Cozaar) Take 1 Tablet (25 mg) by mouth in the morning. 90 Tablet 3 2 08/07/20 23 Discontinued(Ref ill) Alendronate Sodium 70 MG Oral Tablet (Fosamax) Take 1 Tablet by mouth once a week. 12 Tablet 3 3 03/13/20 24 Discontinued Omeprazole 20 MG Oral Capsule Delayed Release (PriLOSEC) Take 1 Capsule by mouth in the morning and 1 Capsule before bedtime. 30 minutes before a meal. 60 Capsule 5 3 10/24/19 24 Discontinued(Pat ient preference/disco ntinuation) Spironolactone 25 MG Oral Tablet (Aldactone)Indica tions:HTN, goal below 140/90,Paroxysmal atrial fibrillation (HCC),Hypokalemia ,Localized edema Take 0.5 Tablets by mouth in the morning. 30 Tablet 11 3 04/08/20 24 Discontinued(Ref ill) Pantoprazole Sodium 40 MG Oral Tablet Delayed Release (Protonix) TAKE 1 TABLET IN THE MORNING 90 Tablet 3 3 07/26/20 23 Discontinued Baclofen 10 MG Oral Tablet (Lioresal) Take 1 Tablet by mouth in the morning and 1 Tablet before bedtime. 30 Tablet 3 07/26/20 23 Discontinued(Ref ill) Furosemide 20 MG Oral Tablet (Lasix) Take 1 Tablet by mouth in the morning. 30 Tablet 3 08/07/20 23 Discontinued(Ref ill) Pantoprazole Sodium 20 MG Oral Tablet Delayed Release (Protonix)Indicat ions:Black stools Take 1 Tablet by mouth in the morning and 1 Tablet in the evening. 30 minutes before the first meal of the day. Do not crush, split or chew the tablet. 60 Tablet 3 07/26/20 23 Discontinued Zolpidem Tartrate 5 MG Oral Tablet (Ambien)Indicatio ns:Insomnia, unspecified type Take 1 Tablet by mouth at bedtime as needed for Sleep. 7 Tablet 3 09/25/20 23 Discontinued(Ref ill) Gabapentin 100 MG Oral Capsule (Neurontin) Take 1 Capsule by mouth in the morning and 1 Capsule at noon and 1 Capsule before bedtime. 90 Capsule 1 3 06/10/20 24 Discontinued Baclofen 10 MG Oral Tablet (Lioresal) Take 1 Tablet by mouth in the morning and 1 Tablet before bedtime. 30 Tablet 2 3 08/21/20 23 Discontinued documented as of this encounter (statuses [...] mRNA, LNP-s, No Pre serve, 2-Dose Series ([employer]) 06/16/2022,09/13/2021,11/26/2020,11/05 Pneumococcal Conjugate Vacc, 13 Valent (Prevnar) [...] Sign Reading Time Taken Comments Blood Pressure 126/62 07/26/2023 3:08 PM EDT Pulse 68 07/26/2023 3:08 PM EDT Temperature 36.8 C (98.2 F) 07/26/2023 3:08 PM ED T Respiratory Rate 20 07/26/2023 3:08 PM EDT Oxygen Saturation 98% 07/26/2023 3:08 PM EDT Inhaled Oxygen Concentration - - Weight 63 kg (139 lb) 07/26/2023 3:08 PM EDT Height - - Body Mass Index 22.44 05/28/2023 1:48 PM EDT documented in this encounter Progress Notes * Rachel Grimes MD - 07/26/2023 3:52 PM EDT Myron Chino is a 82 year old female. Chief Complaint Patient presents with Follow Up Follow up of fall Headache, back ache, and swelling of ankles. Right knee pain. Medication refills HPI: Here for 2 wks f/u on her facial head concussion, multiple skin abrasions, due to fall Much better looking today Most of skin abrasion healed well without infection sign C/o persistent REYNAGA, front since fall No neuro sx, not progressing Has been taking tylenol And also baclofen which helps body pain and REYNAGA But not enough for her REYNAGA , very annoying Will try neurontin low dose Afib, pacemaker, HTN, stable , Chronic venous insuff , dermatitis - advised to wear compression stockings Dementia - chronic , taking med PMH: Patient Active Problem List Diagnosis Code Osteoporosis M81.0 Dyslipidemia E78.5 Allergic rhinitis J30.9 Iron deficiency E61.1 HTN, goal below 140/90 I10 Gastroesophageal reflux disease K21.9 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) F02.80 Atrial fibrillation (HCC) I48.91 Other premature beats I49.49 Lumbar stenosis M48.061 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 Coronary atherosclerosis due to lipid rich plaque I25.10, I25.83 Cardiac pacemaker in situ Z95.0 Presence of Watchman left atrial appendage closure device Z95.818 Lymphedema of both lower extremities I89.0 Asthma, mild persistent J45.30 Prediabetes R73.03 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 Fluticasone Propionate 50 MCG/ACT Nasal Suspension (Flonase) Administer 1 [place] into nostril in themorning. Polyethylene Glycol 3350 17 GM/SCOOP Oral Powder (Miralax) Take 17 g by mouth. RA Laxative 5 MG Oral Tablet Delayed Release Take 1 Tablet by mouth in the morning. Aspirin Low Dose 81 MG Oral Tablet Delayed Release Take 1 Tablet (81 mg) by mouth in the morning. 90 Tablet 3 Verapamil HCl ER 180 MG Oral Tablet Extended Release (Isoptin SR) Take 1 Tablet (180 mg) by mouth in the morning. 90 Tablet 3 Atorvastatin Calcium 20 MG Oral Tablet (Lipitor) Take 1 Tablet (20 mg) by mouth at bedtime. 90 Tablet 3 Losartan Potassium 25 MG Oral Tablet (Cozaar) Take 1 Tablet (25 mg) by mouth in the morning. 90 Tablet 3 Alendronate Sodium 70 MG Oral Tablet (Fosamax) Take 1 Tablet by mouth once a week. 12 Tablet 3 Ventolin HFA 108 (90 Base) MCG/ACT Inhalation Aerosol Solution Inhale 2 Puffs by mouth every 4 hours as needed for Cough. 18 g 3 Omeprazole 20 MG Oral Capsule Delayed Release (PriLOSEC) Take 1 Capsule by mouth in the morning and1 Capsule before bedtime. 30 minutes before a meal. 60 Capsule 5 Spironolactone 25 MG Oral Tablet (Aldactone) Take 0.5 Tablets by mouth in the morning. 30 Tablet 11 Memantine HCl 10 MG Oral Tablet (Namenda) TAKE 1 TABLET IN THE MORNING 90 Tablet 3 Furosemide 20 MG Oral Tablet (Lasix) Take 1 Tablet by mouth in the morning. 30 Tablet 0 Zolpidem Tartrate 5 MG Oral Tablet (Ambien) Take 1 Tablet by mouth at bedtime as needed for Sleep. 7 Tablet 0 Pantoprazole Sodium 40 MG Oral Tablet Delayed Release (Protonix) TAKE 1 TABLET IN THE MORNING 90 Tablet 3 Gabapentin 100 MG Oral Capsule (Neurontin) Take 1 Capsule by mouth in the morning and 1 Capsule at noon and 1 Capsule before bedtime. 90 Capsule 1 Baclofen 10 MG Oral Tablet (Lioresal) Take 1 Tablet by mouth in the morning and 1 Tablet before bedtime. 30 Tablet 2 No current facility-administered medications for this visit. [...] reaction(s): GI Cramps Nafcillin Rash Electrolyte disturbance No family history on file. No family status information on file. Social History Socioeconomic History Marital status: Spouse name: Not on file Number of children: Not on file Years of education: Not on file Highest education level: Not on file Occupational History Not on file Tobacco Use Smoking status: Never Passive exposure: Past Smokeless tobacco: Never Vaping Use Vaping Use: Never used Substance and Sexual Activity Alcohol use: Not Currently Drug use: Not Currently Sexual activity: Not on file Other Topics Concern Not on file Social History Narrative Not on file Social Determinants of Health Financial Resource Strain: Not on file Food Insecurity: Not on file Transportation Needs: Not on file Physical Activity: Not on file Stress: Not on file Social Connections: Not on file Intimate Partner Violence: Not on file Housing Stability: Not on file Review of Systems Constitutional: Positive for activity change (better) and fatigue. Negative for appetite change, chills, diaphoresis, fever and unexpected weight change. Eyes: Negative for visual disturbance. Respiratory: Negative for cough, chest tightness, shortness of breath and wheezing. Cardiovascular: Positive for leg swelling. Negative for chest pain and palpitations. Gastrointestinal: Negative for abdominal distention, abdominal pain, nausea and vomiting. Endocrine: Negative. Musculoskeletal: Positive for arthralgias. Skin: Still bruise on lt face and other legs, arms but much better Neurological: Positive for headaches. Negative for dizziness, tremors, speech difficulty, weakness,light-headedness and numbness. Psychiatric/Behavioral: Positive for sleep disturbance. Negative for agitation and behavioral problems. Objective BP 126/62 | Pulse 68 | Temp 36.8 C (98.2 F) (Infrared ) | Resp 20 | Wt 63 kg (139 lb) | SpO2 98% | BMI 22.44 kg/m | BSA 1.71 m Physical Exam Constitutional: General: She is not in acute distress. Appearance: Normal appearance. She is not ill-appearing, toxic-appearing or diaphoretic. HENT: Head: Comments: Lt black eye but much less Nose: Nose normal. Eyes: Extraocular Movements: Extraocular movements intact. Conjunctiva/sclera: Conjunctivae normal. Cardiovascular: Rate and Rhythm: Normal rate. Rhythm irregular. Pulses: Normal pulses. Heart sounds: Murmur heard. Comments: Pacemaker Pulmonary: Effort: Pulmonary effort is normal. No respiratory distress. Breath sounds: Normal breath sounds. No stridor. No wheezing, rhonchi or rales. Chest: Chest wall: No tenderness. Musculoskeletal: General: Tenderness present. Right lower leg: Edema (trace) present. Left lower leg: Edema (trace) present. Comments: Venous insuff Neurological: Mental Status: She is alert and oriented to person, place, and time. Psychiatric: Behavior: Behavior normal. 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 - Baclofen 10 MG Oral Tablet (Lioresal); Take 1 Tablet by mouth in the morning and 1 Tablet before bedtime. Follow Up: Return in about 4 months (around 11/26/2023) for Clinic Visit. | For: Clinic Visit | Check-out note: With PCP or lew And cancel Nov amber Trial neurontin for REYNAGA Cont all other meds Fall precaution Rachel Grimes MD documented in this encounter Nursing Notes * Kisha Billings LPN - 07/26/2023 3:04 PM EDT Chief Complaint Patient presents with Follow Up Follow up of fall Headache, back ache, and swelling of ankles. Right knee pain. Medication refills documented in this encounter Plan of Treatment Upcoming Encounters Date Type Department Care Team (Late st Contact Info) Description 06/12/2024 10:40 AM EDT [facility] [address] [facility] [phone] [facility]imes [facility] [address] [facility] [address] 06/26/2024 1:20 PM EDT Office Visit Family Practice, [place] [address] [place] [facility] [place] [phone] Tramaine Mcdonald MD [address] [place] [address] 06/27/2024 1:00 PM EDT Office Visit Neurology [facility] [address] [facility] [place] [address] Ofelia Helm MD [address] [facility] [place] [address] 09/16/2024 3:30 PM EST Imaging Radiology, [address] [place] [address] 12/22/2024 11:00 AM EDT Office Visit Cardiology, [facility] [address] [place] [address] Kathy Larkin PA-C [address] [place] [address] Health Maintenance Due Date Last Done Comments [...] Depression Screening 03/07/2025 03/07/2024 GFR 04/22/2025 04/22/2024, 06/03/2024, 10/24/2023, Additional history exists Albumin/Creatinine Ratio 06/15/2025 06/15/2022 DTap/Tdap Vaccines (3 - Td or Tdap) 03/02/2028 03/02/2018, 01/28/2016 Pneumococcal Vaccine: 65+ Years Completed 06/14/2018, 01/19/2016, 08/30/2012 VITAMIN D LEVEL ONCE IN A LIFETIME-USE SMARTSET# [id number] Completed 08/12/2021, 06/22/2020, 01/09/2019 HPV (Gardasil) Vaccine [...] as of this encounter Visit Diagnoses Diagnosis Concussion with unknown loss of consciousness status, subsequent encounter- Primary Skin abrasion Abrasion or friction burn of other, multiple, and unspecified sites, without mention of infection Tension-type headache, not intractable, unspecified chronicity pattern 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
--- OUTSIDE RECORDS SUMMARY | 2024-06-22 10:08 | External Medical Summary | Summary of Care ---
Author Name Unknown Organization [facility] Address [address] [facility] [place] [address] Phone [phone] Care Team Providers Care Premium Note Interest Calculator Clerk Name Role Phone Rachel Grimes MD Primary Care Provider [phone] Encounter Details Date Type Department Care Team (Late st Contact Info) Description 06/10/2024 Telephone Cardiology, [facility] [address] [place] [address] Kathy Larkin PA-C [address] [place] [address] Allergies Active Allergy Reactions Criticality Noted Date Comments Aspirin Medium 07/18/2018 Stomach Ulcer Ketorolac Tromethamine High 03/27/2017 Other reaction(s): Abdominal Pain Lisinopril Cough 01/17/2022 Nafcillin Rash Low 10/07/2014 Electrolyte disturbance Nsaids 07/18/2018 Gastric ulcer Prednisone 08/23/2020 Other reaction(s): Headache "unable to sleep" Sulfamethoxazole-Trimethopr im 05/31/2015 Other reaction(s): GI Cramps documented as of this encounter (statuses as of 06/11/2024) Medications Medication Sig Dispensed Refills Start Date End Date Status Fluticasone Propionate 50 MCG/ACT Nasal Suspension (Flonase) Administer 1 [place] into nostril in the morning. As needed. [...] as of this encounter (statuses as of 06/11/2024) Active Problems Problem Noted Date Diagnosed Date [...] as of this encounter (statuses as of 06/11/2024) Resolved Problems Problem Noted Date Diagnosed Date Resolved Date Asthma in remission 03/13/2022 03/31/20 Asthma, moderate persistent 03/13/2022 03/31/2022 Asthma, severe persistent 03/13/2022 Intermittent asthma with rel iever use up to twice per week 03/13/2022 03/31/2022 Implantable cardioverter-def ibrillator (ICD) in situ 01/17/2022 04/02/2023 Asthma 01/17/2022 03/31/2022 documented as of this encounter (statuses as of 06/11/2024) Immunizations Name Administration Dates Next Due COVID-19 mRNA, LNP-s, No Pre serve, 2-Dose Series ([employer]) 06/16/2022,09/13/2021,11/26/2020,11/05 Pneumococcal Conjugate Vacc, 13 Valent (Prevnar) [...] encounter Miscellaneous Notes * Telephone Encounter - Breanne Magana CMA - 06/11/2024 11:50 AM EDT Called and spoke with patient. Told her that Kathy Larkin and Dr Broderick Dias both agree that she should take Plavix and can stop ASA. Patient is not currently taking plavix but agreeable and is going toask someone to retrieve rx from the pharmacy today as she cannot drive herself. * Telephone Encounter - Kathy Larkin PA-C - 06/10/2024 3:25 PM EDT Thanks for the feedback. Nursing staff - Dr. Helm agrees patient NEEDS to be on plavix. Can stop ASA when on plavix This was sent to her pharmacy by Dr. Helm. So if we verify she is NOT taking, please let her know to pick this up * Telephone Encounter - Kathy Larkin PA-C - 06/10/2024 1:34 PM EDT Patient here for cardio f/u today. She was somewhat confused regarding her medications. She is adamant she is not taking plavix at this time. Per chart review she had possible CVA in March. Followed by neurology and was to be on ASA and plavix for 3 weeks, then ASA to be stopped and plavix continued indefinitely She says she stopped plavix when the bottle ran out. Her sister was present today but does not aid patient with medications. Nursing staff - please call the pharmacy and see when she last filled plavix. May also benefit from calling patient's house and reviewing medications. She did see hematology for bruising in May 2024. No concerns noted at that time and plavix was to be continued. So it does not appear [facility] FYI to Dr. Helm - has upcoming appt, but from what I can tell, patient should be on Plavix. Wanted your thoughts... Thanks documented in this encounter Plan of Treatment Upcoming Encounters Date Type Department Care Team (Late st Contact Info) Description 06/12/2024 10:40 AM EDT [facility] [phone] Rachel Grimes MD [address] [facility] [place] [address] 06/26/2024 1:20 PM EDT Office Visit [facility] [address] [place] [phone] Tramaine Mcdonald MD [address] [facility] [place] [address] 06/27/2024 1:00 PM EDT Office Visit Neurology [facility] [address] [facility] [place] [address] Ofelia Helm MD [address] [facility] [place] [address] 09/16/2024 3:30 PM EST Imaging Radiology, [facility] [address] [facility] [place] [address] 12/22/2024 11:00 AM EDT Office Visit Cardiology, [facility] [address] [place] [address] Kathy Larkin PA-C [address] [place] [address] Health Maintenance Due Date Last Done Comments [...] D LEVEL ONCE IN A LIFETIME-USE SMARTSET# [id number] Completed 08/12/2021, 06/22/2020, 01/09/2019 HPV (Gardasil) Vaccine [...] filedocumented as of this encounter Care Teams Premium Note Interest Calculator Clerk Relationship Specialty Start Date End Date Rachel Grimes MD [address] [place] [address] PCP - General Internal Medicine 04/10/24 documented as of this encounter
--- OUTSIDE RECORDS SUMMARY | 2024-06-22 10:08 | External Medical Summary | Summary of Care ---
Author Name Unknown Organization [facility] Address [address] [place] [facility] [place] [address] Phone [phone] Care Team Providers Care Perfect Binder Feeder Offbearer Name Role Phone Rachel Grimes MD Primary Care Provider [phone] Reason for Visit * Reason Onset Date Comments Med Request 06/12/2024 cough Encounter Details Date Type Department Care Team (Late st Contact Info) Description 06/12/2024 Telephone [facility] [address] [place] [address] Rachel Grimes MD [address] [place] [address] Med Request (cough) Allergies Active [...] 50 MCG/ACT Nasal Suspension (Flonase) Administer 1 [place] into nostril in the morning. As needed. [...] mRNA, LNP-s, No Pre serve, 2-Dose Series ([employer] 06/16/2022,09/13/2021,11/26/2020,11/05 Pneumococcal Conjugate Vacc, 13 Valent (Prevnar) [...] PM EDT No available appointments in the [facility] office or surrounding clinics today or tomorrow, [...] an appt. Thank you, Lindsey Haines CPhT Audiovisual Librarian III [facility] 06/12/2024, 2:32 PM * Telephone Encounter - Elena Rahman CPhT - 06/12/2024 2:28 PM EDT Pt calling to check on status of rx request. Caller can be reached at [phone]. Thank you, Elena Rahman CPhT Technology Education Instructor II [facility] ([facility]) 06/12/2024,2:28 PM * Telephone Encounter - Keara Moore PHARM Tech - 06/12/2024 12:51 PM EDT Pt calling with complaints of cough and headache and is requesting a medication be prescribed. Pt did not want to schedule an appointment at this time. Call details was completed, please refer to this for further information. Thank you, Keara Moore [facility] Audiovisual Librarian II [facility] ([facility]) 06/12/2024, 12:52 PM Pt calling on a refill for pcp discretion. Please uses [id number] [address] [facility] pharmacy. Does pt need a written rx? EMarthascribe documented in this encounter Plan of Treatment Upcoming Encounters Date Type Department Care Team (Late st Contact Info) Description 06/26/2024 1:20 PM EDT Office Visit [facility] [address] [place] [facility] [place] [phone] Tramaine Mcdonald MD [address] [place] [facility] [address] 06/27/2024 1:00 PM EDT Office Visit Neurology [facility] [place] [address] [place] [id number] Ofelia Helm MD [address] [place] [address] 09/16/2024 3:30 PM EST Imaging Radiology, [facility] [address] [facility] [place] [address] 12/22/2024 11:00 AM EDT Office Visit Cardiology, [facility] [address] [place] [address] Kathy Larkin PA-C [address] [place] [address] Health Maintenance Due Date Last Done Comments [...] D LEVEL ONCE IN A LIFETIME-USE SMARTSET# [id number] Completed 08/12/2021, 06/22/2020, 01/09/2019 HPV (Gardasil) Vaccine [...] filedocumented as of this encounter Care Teams Perfect Binder Feeder Offbearer Relationship Specialty Start Date End Date Rachel Grimes MD [address] [place] [address] PCP - General Internal Medicine 04/10/24 documented as of this encounter
--- OUTSIDE RECORDS SUMMARY | 2024-06-22 10:08 | External Medical Summary | Summary of Care ---
Author Name Unknown Organization [facility] Address [address] [place] [facility] [address] Phone [phone] Care Team Providers Care Trouble Dispatcher Name Role Phone Rachel Grimes MD Primary Care Provider [phone] Reason for Visit * Reason Onset Date Comments Med Request 06/12/2024 cough Encounter Details Date Type Department Care Team (Late st Contact Info) Description 06/12/2024 Telephone [facility] [address] [place] [address] Rachel Grimes MD [address] [place] [address] Med Request (cough) Allergies Active [...] 50 MCG/ACT Nasal Suspension (Flonase) Administer 1 Tina into nostril in the morning. As needed. [...] mRNA, LNP-s, No Pre serve, 2-Dose Series (Shopperception) 06/16/2022,09/13/2021,11/26/2020,11/05 Pneumococcal Conjugate Vacc, 13 Valent (Prevnar) [...] PM EDT No available appointments in the [facility] office or surrounding clinics today [...] an appt. Thank you, Lindsey Haines CPhT Sba Underwriter III [facility] ([facility]) 06/12/2024, 2:32 PM * Telephone Encounter - Elena Rahman CPhT - 06/12/2024 2:28 PM EDT Pt calling to check on status of rx request. Caller can be reached at [phone]. Thank you, Elena Rahman CPhT Inside Sales Director II [facility] ([facility]) 06/12/2024,2:28 PM * Telephone Encounter - Keara Moore PHARM Tech - 06/12/2024 12:51 PM EDT Pt calling with complaints of cough and headache and is requesting a medication be prescribed. Pt did not want to schedule an appointment at this time. Call details was completed, please refer to this for further information. Thank you, Keara Moore [facility] Sba Underwriter II [facility] ([facility]) 06/12/2024, 12:52 PM Pt calling on a refill for pcp discretion. Please uses [id number] [facility] pharmacy. Does pt need a written rx? EMarthascribe documented in this encounter Plan of Treatment Upcoming Encounters Date Type Department Care Team (Late st Contact Info) Description 06/26/2024 1:20 PM EDT Office Visit [facility] [address] [place] [facility] [place] [phone] Tramaine Mcdonald MD [address] [facility] [place] [place] [address] 06/27/2024 1:00 PM EDT Office Visit Neurology [facility] [place] [address] [place] [phone] Ofelia Helm MD [address] [place] [address] 09/16/2024 3:30 PM EST Imaging Radiology, [facility] [address] [facility] [place] [address] 12/22/2024 11:00 AM EDT Office Visit Cardiology, [facility] [address] [place] [address] Kathy Larkin PA-C [address] [place] [address] Health Maintenance Due Date Last Done Comments [...] D LEVEL ONCE IN A LIFETIME-USE SMARTSET# [id number] Completed 08/12/2021, 06/22/2020, 01/09/2019 HPV (Gardasil) Vaccine [...] filedocumented as of this encounter Care Teams Trouble Dispatcher Relationship Specialty Start Date End Date Rachel Grimes MD [address] [place] [address] PCP - General Internal Medicine 04/10/24 documented as of this encounter
--- OUTSIDE RECORDS SUMMARY | 2024-06-22 10:08 | External Medical Summary | Summary of Care ---
Author Name Unknown Organization [facility] Address [address] [facility] [place] [address] Phone [phone] Care Team Providers Care Scarifier Operator Name Role Phone Rachel Grimes MD Primary Care Provider [phone] Reason for Visit * Reason Comments NEW PATIENT * Evaluate & Treat - Unlimited Visits (Within 10 days (routine)) - Pending Review Specialty Diagnoses / Procedures Referred By Rajiv chin Referred To Contact Hematology/Oncology / Hematology Oncology Diagnoses Senile purpura (HCC) Bruising Rachel Grimes MD [address] [place] [address] Referral ID Status Reason Start Date Expiration Date Visits Requested Visits Authorized [id number] Pending Review Specialty Services Required 03/07/[phone] Encounter Details Date Type Department Care Team (Late st Contact Info) Description 05/20/2024 11:30 AM EDT Office Visit Hematology/Oncology [facility] [place] [address] [place] [phone] Pan Leal MD [address] [place] [address] Easy bruising* Allergies Active Allergy Reactions Criticality Noted Date Comments Aspirin Medium 07/18/2018 Stomach Ulcer Ketorolac Tromethamine High 03/27/2017 Other reaction(s): Abdominal Pain Lisinopril Cough 01/17/2022 Nafcillin Rash Low 10/07/2014 Electrolyte disturbance Nsaids 07/18/2018 Gastric ulcer Prednisone 08/23/2020 Other reaction(s): Headache "unable to sleep" Sulfamethoxazole-Trimethopr im 05/31/2015 Other reaction(s): GI Cramps documented as of this encounter (statuses as of 05/20/2024) Medications Medication Sig Dispensed Refills Start Date End Date Status Fluticasone Propionate 50 MCG/ACT Nasal Suspension (Flonase) Administer 1 [place] into nostril in the morning. As needed. [...] as of this encounter (statuses as of 05/20/2024) Active Problems Problem Noted Date Diagnosed Date [...] as of this encounter (statuses as of 05/20/2024) Resolved Problems Problem Noted Date Diagnosed Date Resolved Date Asthma in remission 03/13/2022 03/31/20 Asthma, moderate persistent 03/13/2022 03/31/2022 Asthma, severe persistent 03/13/2022 Intermittent asthma with rel iever use up to twice per week 03/13/2022 03/31/2022 Implantable cardioverter-def ibrillator (ICD) in situ 01/17/2022 04/02/2023 Asthma 01/17/2022 03/31/2022 documented as of this encounter (statuses as of 05/20/2024) Immunizations Name Administration Dates Next Due COVID-19 [...] Sign Reading Time Taken Comments Blood Pressure 119/76 05/20/2024 11:26 AM EDT Pulse 81 05/20/2024 11:26 AM EDT Temperature 36.3 C (97.3 F) 05/20/2024 11:26 AM E DT Respiratory Rate - - Oxygen Saturation 97% 05/20/2024 11:26 AM EDT Inhaled Oxygen Concentration - - Weight 58.7 kg (129 lb 6.4 oz) 05/20/2024 11:26 AM EDT Height 167.6 cm (5' 6") 05/20/2024 11:26 AM EDT Body Mass Index 20.89 05/20/2024 11:26 AM EDT documented in this encounter Progress Notes * Pan Leal MD - 05/20/2024 11:22 AM EDT Outpatient Consult Note Data Source: Patient, Epic record. 05/20/2024 11:22 AM Luna Chino [id number] 83 year old MD Rachel Claros MD Patient Encounter: HEMATOLOGY/ONCOLOGY [facility] Reason for consult: Easy bruising HPI: 83-year-old female with a history of coronary artery disease, dyslipidemia, hypertension, prediabetes and history of atrial fibrillation status post Watchman in 08/2022 referred with the above diagnosis. For AFib she is not on anticoagulation. Currently she is taking Plavix started about 3 weeks ago after the episode of TIA/stroke. Before that she was on aspirin. She had episode of numbness in her right face and hand was not accompanied by headache change in vision speech facial droop weakness instability. It resolved within a day. She had CT of the head suggested a left thalamic lacunar infarction. Because of the episode she was started on Plavix. She is having Skin ecchymosis and petechiae for last couple of years which got worse since the start of the Plavix. She had multiple surgeries done in the past including tonsillectomy during the childhood, hysterectomy in 1979, back surgery in 1999 and bilateral knee replacement surgery many years ago without any episode of excessive bleeding. Family history is also negative for bleeding issues or problem. Clinically she is stable without any new symptoms of complain. Denies any headache, dizziness, blurred vision, chest pain, palpitation abdominal pain or distention, nausea, vomiting, fever, night sweats, hematuria, hematochezia, epistaxis or gum bleed. Recent blood test were done on 03/07/2024 which shows WBC count of 6.72, hemoglobin 13.4 and platelet count 210. Creatinine was 0.8 the rest of the electrolytes and LFTs were within normal limit. APTT was 28 and PT INR was 14/1.1. She denies smoking or drinking. Family history significant for father was diagnosed of lung cancer. No family history of bleeding problem. Past Medical History: Diagnosis Date Atrial fibrillation (HCC) 08/18/2021 CAD (coronary artery disease) Cardiac pacemaker in situ 01/17/2022 Dyslipidemia Hypertension Iron deficiency Prediabetes Tobacco abuse Current Outpatient Medications Medication Sig Dispense Refill Fluticasone Propionate 50 MCG/ACT Nasal Suspension (Flonase) Administer 1 Folsom into nostril in themorning. As needed. Polyethylene [...] at noon and 1 Capsule before bedtime. (Patient taking differently: Take 1 Capsule by mouth in the morning.) 90 Capsule 1 Losartan Potassium 25 MG Oral Tablet (Cozaar) Take 1 Tablet by mouth in the morning. 90 Tablet 3 Verapamil HCl ER 180 MG Oral Tablet Extended Release (Isoptin SR) Take 1 Tablet by mouth in the morning. 90 Tablet 3 Atorvastatin Calcium 20 MG Oral Tablet (Lipitor) TAKE 1 TABLET AT BEDTIME 90 Tablet 2 Furosemide 20 MG Oral Tablet (Lasix) Take 1 Tablet by mouth in the morning. 90 Tablet 3 Furosemide 40 MG Oral Tablet (Lasix) Take 1 Tablet by mouth in the morning. 90 Tablet 1 Clopidogrel Bisulfate 75 MG Oral Tablet (Plavix) Take 1 Tablet by mouth in the morning. 14 Tablet 1 Spironolactone 25 MG Oral Tablet (Aldactone) Take 0.5 Tablets by mouth in the morning. 45 Tablet 3 Zolpidem Tartrate 5 MG Oral Tablet (Ambien) Take 1 Tablet by mouth at bedtime as needed for Sleep. 90 Tablet 0 No current facility-administered medications for this visit. Social History Socioeconomic History Marital status: Spouse [...] paying for medicine? (Household - for ages 0-17 years): Not on file Food Insecurity: No [...] (Adult - for ages 18 years and over):Never True Does your family have a hard [...] Stability Do you currently live in a detention or have no steady place to sleep at night? (Adult - for ages 18 years and over): No Do you think [...] be in the future? (Household - for ages0-17 years): Not on file Family History Problem Relation Name Age of Onset COPD Mother Lung cancer Father Breast Cancer Sister Stroke Grandmother (Maternal) Parkinsonism Daughter Crohn's disease Daughter REVIEW OF SYSTEMS: General: No Fever, chills, night sweats, or weight loss. HEENT: No change in visual acuity, blurred or double vision. No epistaxis, facial pain, nasal discharge or change in hearing. Denies dysphagia, no muscosal ulceration, or sores noted. Cardiovascular: No chest pain, CROOKS, or palpitations Respiratory: No shortness of breath, cough, hemoptysis, or pleuritic chest pain Gastrointestinal: No abdominal pain, nausea, vomiting, diarrhea, rectal pain or bleeding Genitourinary: Denies Hematuria or dysuria Musculoskeletal: No bone pain Skin: Skin petechiae and ecchymosis involving the hand lower extremity. Psychiatric: No vegetative signs of depression Endocrine: No symptoms of hypothyroidism or hyperglycemia Hematologic: No bleeding or lymph nodes noted As mentioned above, all other systems were reviewed in full and are unremarkable. Review of patient's allergies indicates: Allergen Reactions Ketorolac Tromethamine Other reaction(s): Abdominal Pain Aspirin Stomach Ulcer Lisinopril Cough Nsaids Gastric ulcer Prednisone Other reaction(s): Headache "unable to sleep" Sulfamethoxazole-Trimethoprim Other reaction(s): GI Cramps Nafcillin Rash Electrolyte disturbance PHYSICAL EXAMINATION: General Appearance: Healthy appearing patient in no acute distress There were no vitals taken for this visit. Vitals were reviewed. HEENT: No oral or pharyngeal masses, ulceration or thrush noted, no sinus tenderness. Neck is supple with no thyromegaly or JVD noted. Lymph Nodes: No lymphadenopathy noted in the occipital, pre and post auricular, cervical, supra andinfraclavicular, axillary, epitrochlear, inguinal, and popliteal region. Lungs/Thorax: Clear to auscultation, no accessory muscles of respiration being used. Heart: Regular rate and rhythm, normal S1, S2. Abdomen: Soft, nontender, bowel sounds present, no appreciable hepatosplenomegaly, no palpable masses Extremeties: Good pulses bilaterally, no peripheral edema. On the skin there were areas of ecchymosis and petechiae specially on the hand and lower extremity. ASSESSMENT: 83-year-old female with a history of coronary artery disease, dyslipidemia, hypertension, prediabetes and history of atrial fibrillation status post Watchman in 08/2022 referred with a easy bruising and ecchymosis. She has this issue for last few years and recently got worse. She had question of TIA/stroke and was recently started on Plavix. Before the she was on aspirin. Her blood tests including hemoglobin, WBC count, platelet count, electrolytes, APTT, PT/INR all were within normal range. She has a history of multiple surgeries done in the past without any excessive bleeding. 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 Senile purpura occurs when blood vessels become weak and fragile due to aging causing blood to leak intothe dermal tissue. The bruises can appear without any obvious trauma and often resolve on their ownover a few days, leaving behind a brownish discoloration. Medications such as corticosteroids, warfarin, aspirin, clopidogrel may exacerbate the ecchymoses. No treatment improved lesion resolution trinity needed She is also taking Plavix which can increase the risk of bleeding further. Her family history is negative for any bleeding issues. Her blood tests were within normal range including PT, INRand APTT. Discussed with the patient daughter in detail about diagnosis reviewed all the available blood testresult with him. After detailed discussion she decided to continue follow-up with the PCP. PLAN: She will continue follow her PCP. She can be referred back to me in case if she develops any new issues or problem related to the Hematology. Thank you for the opportunity to participate in the care of this patient. The patient voiced understanding of all of the above. All questions and concerns were addressed in an apparently satisfactory manner. Pan Leal MD (This note was completed using the dictation program Fluency Direct. As such, there may be misspellings, word substitutions, or other variations that should not change the essence of the clinical content of this encounter note. If there is need for further clarification, please direct questions to me.) documented in this encounter Nursing Notes * Lindsey Gill MED ASSIST - 05/20/2024 11:27 AM EDT Patient identifed by name and birthdate Do you have any concerns about pain management for today's visit? Yes. Patient instructed to discuss pain concerns with provider during the visit today Living Will or Advance Directive for Health Care as noted on the problem list. GOODWINer is a way you can talk to your provider on line through e-mail. Would you like to sign up? I can activate it for you? ALREADY ACTIVE Filed Vitals: 05/20/24 1126 BP: 119/76 Pulse: 81 Temp: 36.3 C (97.3 F) TempSrc: Tympanic SpO2: 97% Weight: 58.7 kg (129 lb 6.4 oz) Height: 1.676 m (5' 6") Patient was instructed to not get up on the exam table/exam chair until directed and assisted by their provider; patient is to remain seated in the chair/ wheelchair/ exam table/ exam chair for fall prevention and safety reasons. Patient is aware to have assistance to step down off exam table/exam chair with personnel. Patient voiced full comprehension of instructions. documented in this encounter Plan of Treatment Upcoming Encounters Date Type Department Care Team (Late st Contact Info) Description 06/10/2024 11:00 AM EDT Office Visit Cardiology, [address] [place] [address] Kathy Mccullough PA-C [address] [place] [address] 06/26/2024 1:20 PM EDT [facility] Visit [facility] [address] [facility] [phone] Tramaine Mcdonald MD [address] [place] [address] 06/27/2024 1:00 PM EDT Office Visit Neurology [facility] [address] [facility] [place] [address] Ofelia Helm MD [address] [facility] [place] [address] 09/16/2024 3:30 PM EST Imaging Radiology, [address] [place] [address] Scheduled Referrals Name Type Priority Associated Diagnoses Orde r Schedule HEMATOLOGY/ONCOLOGY REFERRAL OP Referral Within 10 days (routine) Senile purpura (HCC) Bruising Ordered: 03/07/2024 Health Maintenance Due Date Last Done Comments [...] D LEVEL ONCE IN A LIFETIME-USE SMARTSET# [id number] Completed 08/12/2021, 06/22/2020, 01/09/2019 HPV (Gardasil) Vaccine [...] as of this encounter Visit Diagnoses Diagnosis Easy bruising- Primary Other symptoms involving skin and integumentary tissues documented in this encounter Care Teams Scarifier Operator Relationship Specialty Start Date End Date Rachel Grimes MD [address] [place] [address] PCP - General Internal Medicine 04/10/24 documented as of this encounter
--- NOTE | 2024-06-22 10:12 | ED Triage Note ---
Date of Service June 22, 2024 Provider in Triage Author: Ramu Hays History of Present Illness This patient was briefly evaluated while in triage. An abbreviated physical exam was performed. This patient is a 83-year-old Female who presents to the ED for evaluation of ongoing back pain. The patient has had discomfort for the past few weeks. Patient denies any recent trauma. Patient denies any urinary or bowel symptoms. The patient reports a prior history of low back surgery. The patient rates her discomfort a 7 out of 10. The patient has not taken any medicines yet today for her pain. Physical Exam CONSTITUTIONAL: Healthy and well nourished. Patient is sitting in a wheelchair, and does not appear in any acute distress. RESPIRATORY: Clear to auscultation bilaterally with no wheezing, crackles, rhonchi or stridor. CARDIOVASCULAR: Regular rate and rhythm with no murmurs, rubs or gallops. GASTROINTESTINAL: Bowel sounds present in all quadrants. Soft and nontender to palpation. MUSCULOSKELETAL: Patient is tender through the middle lumbar spine. No focal tenderness to palpation through the paraspinous muscles. INTEGUMENTARY: No rash or other significant dermatologic conditions noted. HEMATOLOGIC: No ecchymosis or petechiae. PSYCHIATRIC: Positive affect. NEUROLOGIC: No focal neurologic deficits noted. Initial orders for labs and / or imaging were placed and patient was placed in the waiting area until a bed is available. Please see further documentation for the full ED course.
[2024-06-22] MEDS: ACETAMINOPHEN 500 MG TAB PO STA (10:36)
[2024-06-22] MEDS: LIDOCAINE 5% 1 PATCH TD STA (10:37)
--- NOTE | 2024-06-22 11:43 | CT Scan Report ---
CT OF THE ABDOMEN AND PELVIS WITHOUT CONTRAST CLINICAL HISTORY: Low back pain. COMPARISON STUDY: CT of the abdomen and pelvis November 24, 2023. TECHNIQUE: Axial images of the abdomen and pelvis were obtained without IV contrast. Images were revi ewed in the axial, sagittal, and coronal planes. Automated exposure control was utilized for the anastasia dy. A dose lowering technique was utilized adhering to the principles of ALARA. FINDINGS: Pacer leads are partially imaged. The heart is enlarged. There is no pneumatosis, free air or portal venous gas. No renal, ureteral or bladder calculi are present. There is no hydronephrosis o r hydroureter. Evaluation of the remainder of the abdomen and pelvis is suboptimal on this unenhanced exam. Liver, spleen, adrenal glands and pancreas are unremarkable. Colonic diverticulosis. No eviden ce for acute diverticulitis. There is a moderate amount of stool within the colon. A left lower quadr ant hernia contains a portion of the colon. There is no resultant bowel obstruction. There is no free fluid. The appendix is normal. Please note that the lumbar spine CT will be reported separately. Pos toperative findings as well as several old compression fractures are better depicted on that exam. IMPRESSION: 1. No urinary calculi or hydronephrosis. 2. No acute process within the abdomen or pelvis on unenhanced exam. No bowel obstruction. Moderate a mount of stool within the colon. 3. Left lower quadrant hernia which contains a portion of the colon without resultant bowel obstructi on. 4. Extensive colonic diverticulosis. No evidence for acute diverticulitis. ACT 112: Negative or not required by law. Electronically signed by: Kemar Morales M.D. 06/22/2024 11:40 AM
--- NOTE | 2024-06-22 11:44 | CT Scan Report ---
CT OF THE LUMBAR SPINE CLINICAL HISTORY: Low back pain, hx spine surgery COMPARISON STUDY: Lumbar spine CT April 16, 2022. CT of the abdomen and pelvis November 24, 2023. TECHNIQUE: Helical axial images of the lumbar spine were obtained. Sagittal and coronal reconstruct ions were viewed. Automated exposure control was utilized for the study. A dose lowering technique was utilized adhering to the principles of ALARA. FINDINGS: There are postoperative findings consistent with L4-S1 decompression and fusion. Lucency ad jacent to the bilateral L4 pedicle screws is again noted. The postoperative appearance is unchanged. Central canal and neural foramen are suboptimally assessed given CT technique. L2 and L3 superior end plate compression fractures were noted on CT of November 24, 2023. These are chronic. No acute lumbar spine fractures are present. There are no suspicious osseous lesions. There is moderate multilevel d egenerative disc disease and facet arthrosis within the lumbar spine. IMPRESSION: 1. No acute lumbar spine fracture or subluxation. 2. Old L2 and L3 compression fractures. 3. Status post L4-S1 decompression and fusion. Lucency adjacent to the bilateral L4 pedicle screws salgado ggestive of loosening. ACT 112: Negative or not required by law. Electronically signed by: Kemar Morales M.D. 06/22/2024 11:43 AM
[2024-06-22 12:31] LABS: Basophils # (auto) 0.05 K/uL (0.00-0.20); Basophils % (auto) 0.7 %; Eosinophils # (auto) 0.06 K/uL (0.00-0.50); Eosinophils % (auto) 0.8 %; Hematocrit (blood only) 40.8 % (37.0-47.0); Immature Granulocytes # (auto) 0.03 K/uL (0.01-0.20); Immature Granulocytes % (auto) 0.4 %; Lymphocytes # (auto) 1.03 K/uL (1.20-3.40); Lymphocytes % (auto) 13.7 %; Mean Corpuscular Hemoglobin 33.2 pg (25.0-34.0); Mean Corpuscular Hgb Conc 34.3 g/dL (32.0-36.0); Mean Corpuscular Volume 96.7 fL (80.0-100.0); Mean Platelet Volume 9.4 fL (9.4-12.4); Monocytes # (auto) 0.89 K/uL (0.11-0.59); Monocytes % (auto) 11.8 %; Neutrophils # (auto) 5.47 K/uL (1.40-6.50); Neutrophils % (auto) 72.6 %; Platelet Count 198 K/uL (130-400); RDW Coefficient of Variation 12.7 % (11.5-14.5); RDW Standard Deviation 44.5 fL (36.4-46.3); Red Blood Count 4.22 M/uL (4.20-5.40); White Blood Count 7.53 K/ul (4.8-10.8)
[2024-06-22 12:47] LABS: Alanine Aminotransferase 11 U/L (7-52); Albumin Globulin Ratio 1.6 (0.9-2); Albumin Level 4.1 gm/dl (3.4-5.0); Alkaline Phosphatase 73 U/L (34-104); Anion Gap 11 (3-11); Aspartate Aminotransferase 25 U/L (13-39); BUN Creatinine Ratio 17.6 (10-20); Bilirubin,Total 1.4 mg/dl (0.2-1.0); Blood Urea Nitrogen 13 mg/dl (6-23); Calcium 9.5 mg/dl (8.6-10.3); Carbon Dioxide 28 mmol/L (21-32); Chloride 94 mmol/L (98-107); Est GFR (African American) 86.2 ml/min; Est GFR (Non-African American) 74.4 ml/min; Globulin 2.6 gm/dl (2.5-4.0); Glucose 104 mg/dl (70-99(Fasting)); Sodium 133 mmol/L (136-145); Total Protein 6.7 gm/dl (6.0-8.3)
[2024-06-22 13:38] LABS: Appearance Urine Clear (Clear); Bacteria Urine Automated None Seen (None Seen); Bilirubin Urine Negative (Negative); Blood Urine Negative (Negative); Color Urine Yellow; Glucose Urine UA Negative (Negative); Hyaline Casts Urine Present /lpf (None Presnt); Ketones Urine Trace (Negative); Leukocyte Esterase Urine Negative (Negative); Nitrite Urine Negative (Negative); Protein Urine Trace (Negative); RBC Urine Automated 0-2 /hpf (0-2); Specific Gravity Urine 1.012 (1.000-1.030); Urobilinogen Urine Negative (Negative); WBC Urine Automated 0-5 /hpf (0-5); pH Urine 6.5 (4.5-7.5)
[2024-06-22] MEDS: POTASSIUM CHLORIDE CRTAB 20 MEQ TABCR PO STA ×2 (14:39→16:58)
[2024-06-22] MEDS ORDERED: POTASSIUM CHLORIDE CRTAB 20 MEQ TABCR PO STA (14:45)
[2024-06-22 15:10] LABS: Magnesium 1.5 mg/dl (1.7-2.4)
--- NOTE | 2024-06-22 15:37 | History & Physical Report ---
Date of Service June 22, 2024 Assessment & Plan (1) Intractable back pain: Plan: Admit to [facility] Patient presenting from home for evaluation of intractable back pain. History of chronic back pain s/p spinal surgery several years ago in [place]. Patient h as received injections in the past most recently 01/2024. Patient had a CVA in March and is now on Plavix and is unable to receive injections. In the ED, CT lumbar spine: No acute lumbar spine fracture or subluxation. Old L2 and L3 compression fractures. Status post L4-S1 decompression and fusion. Lucency adjacent to the bilateral L4 pedicle screws suggestive of loosening. Patient currently appears comfortable after Tylenol and Lidoderm patch applied in ED Consult spine ortho due to noted pedicle screw loosening Schedule Tylenol 1g q8h, Lidoderm patch, PRN Tramadol PT/OT, likely will need rehab - ? 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 Ramirez. I spent a total of 75 minutes coordinating, documenting, and providing care for this patient excluding time spent in the performance of separately billed services. This included personally reviewing all current laboratories and imaging studies, medication reconciliation, outpatient chart review, and discussion with specialists. History of Present Illness Chief Complaint: Back pain Primary Care Provider: Tramaine Mcdonald MD 83-year-old female with PMH paroxysmal atrial fibrillation s/p Watchman device, history of CVA, HTN, CAD, tachybradycardia syndrome s/p pacemaker, GERD, chronic back pain, dementia, and other problems listed below who presents to the ED for evaluation of mid back pain. Patient states her pain initially began a few weeks ago. She was seen by her PCP who ordered PT but this has not been set up yet. Patient reports she woke up this morning and had acute worsening of her mid back pain. She denies any known trauma. Patient used to see pain management and receive back injections however she was recently started on Plavix for CVA and is now unable to receive the injections. Also during PCP visit last week, patient was started on doxycycline for upper respiratory infection. Patient states her symptoms are improving. No chest pain or shortness of breath. Denies lightheadedness, dizziness, diaphoresis, syncopal events. No fevers or chills. Denies urinary symptoms. In the ED, CT lumbar spine is unremarkable for acute findings. Labs show mild hypokalemia and hypomagnesemia. Patient was given Tylenol, potassium replacement, Lidoderm patch was applied. Allergies Allergy/AdvReac Type Severity Reaction Status Date / Time adhesive Allergy Intermediate RASH Verified 06/22/24 14:09 cat dander Allergy Mild itchy,watery Verified 06/22/24 14:09 eyes grass pollen-perennial rye, Allergy Mild itchy,watery Verified 06/22/24 14:09 standar eyes NSAIDS (Non-Steroidal AdvReac Severe Gastrointestinal Verified 06/22/24 14:09 Anti-Inflamma Upset nafcillin AdvReac Intermediate BODY Verified 06/22/24 14:09 WEAKENED,NAUSEA VOMITING,UNABLE TO FUNCTION Sulfa (Sulfonamide AdvReac Intermediate G I UPSET Verified 06/22/24 14:09 Antibiotics) Home Medications Medication Instructions Recorded Confirmed Type zolpidem 5 mg tablet (Ambien) 5 mg PO HS PRN Sleep #0 tabs 07/12/14 06/22/24 History atorvastatin 20 mg tablet 20 mg PO HS #0 tabs 06/02/15 06/22/24 History cetirizine 10 mg tablet (Zyrtec) 10 mg PO DAILY PRN Congestion 03/30/22 06/22/24 History fluticasone propionate 50 1 spray intranasal DAILY PRN 03/30/22 06/22/24 History mcg/actuation nasal Congestion spray,suspension losartan 25 mg tablet (Cozaar) 25 mg PO DAILY 03/30/22 06/22/24 History pantoprazole 40 mg tablet,delayed 40 mg PO DAILY 03/30/22 06/22/24 History release (Protonix) verapamil 180 mg tablet,extended 180 mg PO DAILY 04/16/22 06/22/24 History release albuterol sulfate 90 mcg/actuation 2 puff inhalation Q4H PRN Cough 07/13/23 06/22/24 History aerosol inhaler memantine 10 mg tablet 10 mg PO DAILY 07/13/23 06/22/24 History polyethylene glycol 3350 17 17 g PO DAILY PRN Constipation 11/24/23 06/22/24 History gram/dose oral powder (Miralax) spironolactone 25 mg tablet 12.5 mg PO QAM 11/24/23 06/22/24 History clopidogrel 75 mg tablet 75 mg PO DAILY 06/22/24 06/22/24 History doxycycline hyclate 100 mg capsule 100 mg PO BID 06/22/24 06/22/24 History furosemide 40 mg tablet 40 mg PO DAILY 06/22/24 06/22/24 History montelukast 10 mg tablet 10 mg PO DAILY 06/22/24 06/22/24 History Past Med/Surg History Problem List (Updated 06/22/24 @ 21:54 by Torrey Ibrahim PA-C) Hyponatremia (Acute) Low back pain (Acute) Hypomagnesemia Hypokalemia (Acute) Intractable back pain 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) Bilateral lower extremity edema (Chronic) Compression fracture of L3 vertebra with routine healing History of lumbar spinal fusion Gastric ulcer Lumbar stenosis with neurogenic claudication (Acute) Osteoarthritis of knee Total knee replacement status Asthma (Chronic) STABLE Pacemaker SICK SINUS SYNDROME/TACHYBRADY (2014); LAST CHECK 04/24/18 History of cardiac cath 1999 (STENT X 1), 2008 (NO STENTS) History of tonsillectomy History of tooth extraction History of colonoscopy Degenerative disc disease History of total knee replacement LEFT TKA= 06/08/17= SAB + PNB R TKA 06/2018 History of lumbar surgery (Acute) L4-S1 FUSION/LAMINECTOMY Hx of migraines Depression TIA (transient ischemic attack) 2014 Pulmonary hypertension History of cervical discectomy Medical History SSS (sick sinus syndrome) CVA (cerebral vascular accident) PAF (paroxysmal atrial fibrillation) Presence of Watchman left atrial appendage closure device Sacral fracture Anemia Hypertension History of DE (myocardial infarction) 1999 CAD (coronary artery disease) STENT X 1 (1999) Surgical History Status post cardiac pacemaker procedure Family History Other No pertinent family history Social History Smoking Status: Never smoker Second Hand Exposure: No; Do You Dip or Chew Tobacco: No; Tobacco Cessation Education Requested by Patient: No Hx Alcohol Use: No Hx Substance Use: No Preferred Language: Burmese Communication Ability: Effective Visual Impairment: Limited Hearing Ability: Normal 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 Son who is local is not involved with care much. Other Information That Helps Us Care for You: No Feels Safe at Home: Yes Safety Concerns: Feels Safe At This Time Diet: regular during the past year weight has: remained stable Physical Activity Frequency: Does not Exercise Seatbelt Use: always Do you think of yourself as: straight/heterosexual Assistive Devices: Glasses Assistive Devices Comment: reading only Review of Systems 2 Review of Systems: ROS per HPI, all other systems reviewed and negative Physical Exam Constitutional: WD/WN, vitals as above no acute distress Eyes: PERRL, conjunctivae normal, anicteric sclerae ENMT: external ear and nose normal, oropharynx normal Respiratory: normal respiratory effort, lungs clear to auscultation Cardiovascular: Rate/Rhythm: regular rate and regular rhythm Vessels: normal peripheral pulses Extremities: no edema Gastrointestinal (Abdomen): normal bowel sounds, soft, nontender, no hepatosplenomegaly Musculoskeletal: Spine: straight leg raise negative bilaterally pedal pushes and pulls strong BL, LLE strength 4/5, RLE strength 5/5 Skin: no rashes, warm and dry Neurologic: PERRL, EOMI, accommodation nl, no face palsy, no dysarthria Psychiatric: A+Ox3, euthymic affect forgetul Results & Data Results & Data Vital Signs (Past 12 Hours) Vital Signs Temp Pulse Pulse Resp BP BP Pulse Ox 06/22/24 13:46 74 19 155/88 H 94 06/22/24 12:37 87 20 159/98 H 94 06/22/24 11:26 72 06/22/24 11:22 75 20 190/103 H 96 06/22/24 10:08 36.0 C L 78 20 181/95 H 96 O2 Del Method 06/22/24 13:46 Room Air 06/22/24 12:37 Room Air 06/22/24 11:26 06/22/24 11:22 Room Air 06/22/24 10:08 Room Air Laboratory Results Short CBC 06/22/24 Range/Units 12:08 WBC 7.53 (4.8-10.8) K/ul Hgb 14.0 (12.0-16.0) g/dl Hct 40.8 (37.0-47.0) % Plt Count 198 (130-400) K/uL BMP 06/22/24 12:08 Sodium 133 L Potassium 3.0 L Chloride 94 L Carbon Dioxide 28 BUN 13 Creatinine 0.74 Glucose 104 H Calcium 9.5 Liver Function 06/22/24 Range/Units 12:08 Total Bilirubin 1.4 H (0.2-1.0) mg/dl AST 25 (13-39) U/L ALT 11 (7-52) U/L Alkaline Phosphatase 73 (34-104) U/L Albumin 4.1 (3.4-5.0) gm/dl Urine 06/22/24 Range/Units 12:38 Urine Color Yellow Urine Appearance Clear (Clear) Urine pH 6.5 (4.5-7.5) Ur Specific Justice 1.012 (1.000-1.030) Urine Protein Trace H (Negative) Urine Glucose (UA) Negative (Negative) Code Status & VTE Plan VTE Prophylaxis Plan VTE Prophylaxis will be ordered: Yes Supervising Physician Co-Signing Physician Notes Pt was seen and examined by myself, Rosa Ramirez MD on the day of service. Care was coordinated with [facility] Townsend. 83-year-old female presenting with intractable back pain from home failing outpatient treatment. At the time of exam not in any acute distress, resting comfortably in bed. Lidocaine patch in place, patient tender to palpation in paraspinal muscles of lumbar spine on the right. The ED attempted to have patient transferred to [facility] from there but efforts were unsuccessful. orthospine consult, PT OT, pain control as needed Will need placement Otherwise as above. I spent a total [id number] coordinating, documenting, and providing care for this patient excluding time spent in the performance of separately billed services
[2024-06-22] MEDS: MAGNESIUM SULFATE / D5W 1 GM/100 ML BAG IV ONE (16:53)
[2024-06-22] MEDS: FUROSEMIDE 40 MG TAB PO SCH (16:59)
[2024-06-22] MEDS: CLOPIDOGREL BISULFATE 75 MG TAB PO SCH (17:21)
[2024-06-22] MEDS: ENOXAPARIN INJ 40 MG/0.4 ML SYR SQ SCH (17:21)
[2024-06-22] MEDS: MEMANTINE HCL 10 MG TAB PO SCH (17:22)
[2024-06-22] MEDS: LOSARTAN POTASSIUM 25 MG TAB PO SCH (17:22)
[2024-06-22] MEDS: VERAPAMIL HCL 180 MG TABCR PO SCH (17:23)
[2024-06-22] MEDS: MONTELUKAST SODIUM 10 MG TABLET PO SCH (17:23)
[2024-06-22] MEDS: SPIRONOLACTONE 12.5 MG TAB PO SCH (17:23)
[2024-06-22] MEDS: PANTOprazole 40 MG TAB PO SCH (17:23)
[2024-06-22] MEDS: traMADol HCL 50 MG TABLET PO PRN (18:19)
[2024-06-22] MEDS: ATORVASTATIN 20 MG TAB PO SCH (20:08)
[2024-06-22] MEDS: DOXYCYCLINE HYCLATE 100 MG CAP PO SCH (20:08)
[2024-06-22] MEDS: ACETAMINOPHEN 500 MG TAB PO SCH (21:21)
--- NOTE | 2024-06-22 21:54 | Emergency Department Note ---
History of Present Illness General Chief complaint: Back Injury/Pain Time Seen by Provider: 06/22/24 10:18 History of Present Illness Maximum Pain Intensity: 5 This is an 83-year-old female that presents to the emergency department with complaints of "back pain". The patient notes that yesterday she began with back pain that has progressed into today. She notes that when she sat up in the bed today she could not get out of bed secondary to severe pain in her low back. It took her quite some time to get out of bed. She points to the spinous processes of the L-spine as a location of pain. She denies any known trauma or injury. She notes pain is worse with movement and mildly better with rest. She denies any fevers, chills, nausea or vomiting. No dysuria. No abdominal pain. No chest pain or shortness of breath. She does note history of L-spine surgery. No lower extremity weakness, bowel or bladder incontinence, numbness or tingling in genital region Home Medications Medication Instructions Recorded Confirmed Type zolpidem 5 mg tablet (Ambien) 5 mg PO HS PRN Sleep #0 tabs 07/12/14 06/22/24 History atorvastatin 20 mg tablet 20 mg PO HS #0 tabs 06/02/15 06/22/24 History cetirizine 10 mg tablet (Zyrtec) 10 mg PO DAILY PRN Congestion 03/30/22 06/22/24 History fluticasone propionate 50 1 spray intranasal DAILY PRN 03/30/22 06/22/24 History mcg/actuation nasal Congestion spray,suspension losartan 25 mg tablet (Cozaar) 25 mg PO DAILY 03/30/22 06/22/24 History pantoprazole 40 mg tablet,delayed 40 mg PO DAILY 03/30/22 06/22/24 History release (Protonix) verapamil 180 mg tablet,extended 180 mg PO DAILY 04/16/22 06/22/24 History release albuterol sulfate 90 mcg/actuation 2 puff inhalation Q4H PRN Cough 07/13/23 06/22/24 History aerosol inhaler memantine 10 mg tablet 10 mg PO DAILY 07/13/23 06/22/24 History polyethylene glycol 3350 17 17 g PO DAILY PRN Constipation 11/24/23 06/22/24 History gram/dose oral powder (Miralax) spironolactone 25 mg tablet 12.5 mg PO QAM 11/24/23 06/22/24 History clopidogrel 75 mg tablet 75 mg PO DAILY 06/22/24 06/22/24 History doxycycline hyclate 100 mg capsule 100 mg PO BID 06/22/24 06/22/24 History furosemide 40 mg tablet 40 mg PO DAILY 06/22/24 06/22/24 History montelukast 10 mg tablet 10 mg PO DAILY 06/22/24 06/22/24 History Allergies Allergy/AdvReac Type Severity Reaction Status Date / Time adhesive Allergy Intermediate RASH Verified 06/22/24 14:09 cat dander Allergy Mild itchy,watery Verified 06/22/24 14:09 eyes grass pollen-perennial rye, Allergy Mild itchy,watery Verified 06/22/24 14:09 standar eyes NSAIDS (Non-Steroidal AdvReac Severe Gastrointestinal Verified 06/22/24 14:09 Anti-Inflamma Upset nafcillin AdvReac Intermediate BODY Verified 06/22/24 14:09 WEAKENED,NAUSEA VOMITING,UNABLE TO FUNCTION Sulfa (Sulfonamide AdvReac Intermediate G I UPSET Verified 06/22/24 14:09 Antibiotics) Past Med/Surg History Problem List (Updated 06/22/24 @ 21:54 by Torrey Ibrahim PA-C) Hyponatremia (Acute) Low back pain (Acute) Hypomagnesemia Hypokalemia (Acute) Intractable back pain 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) Bilateral lower extremity edema (Chronic) Compression fracture of L3 vertebra with routine healing History of lumbar spinal fusion Gastric ulcer Lumbar stenosis with neurogenic claudication (Acute) Osteoarthritis of knee Total knee replacement status Asthma (Chronic) STABLE Pacemaker SICK SINUS SYNDROME/TACHYBRADY (2014); LAST CHECK 04/24/18 History of cardiac cath 1999 (STENT X 1), 2008 (NO STENTS) History of tonsillectomy History of tooth extraction History of colonoscopy Degenerative disc disease History of total knee replacement LEFT TKA= 06/08/17= SAB + PNB R TKA 06/2018 History of lumbar surgery (Acute) L4-S1 FUSION/LAMINECTOMY Hx of migraines Depression TIA (transient ischemic attack) 2014 Pulmonary hypertension History of cervical discectomy Medical History SSS (sick sinus syndrome) CVA (cerebral vascular accident) PAF (paroxysmal atrial fibrillation) Presence of Watchman left atrial appendage closure device Sacral fracture Anemia Hypertension History of NM (myocardial infarction) 1999 CAD (coronary artery disease) STENT X 1 (1999) Surgical History Status post cardiac pacemaker procedure Family History Other No pertinent family history Social History Smoking Status: Never smoker Second Hand Exposure: No; Do You Dip or Chew Tobacco: No; Tobacco Cessation Education Requested by Patient: No Hx Alcohol Use: No Hx Substance Use: No Preferred Language: [place] Communication Ability: Effective Visual Impairment: Limited Hearing Ability: Normal 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 Son who is local is not involved with care much. Other Information That Helps Us Care for You: No Feels Safe at Home: Yes Safety Concerns: Feels Safe At This Time Diet: regular during the past year weight has: remained stable Physical Activity Frequency: Does not Exercise Seatbelt Use: always Do you think of yourself as: straight/heterosexual Assistive Devices: Glasses Assistive Devices Comment: reading only Review of Systems A total of 10 systems reviewed and were otherwise negative Physical Exam Vital Signs Vital Signs - 24 hr 06/22/24 10:08 06/22/24 11:20 06/22/24 11:22 Temperature 36.0 C L Temperature Source Temporal Artery Scan Pulse Rate 78 75 Pulse Rate [Apical] 75 Pulse Rate from SpO2 Sensor Respiratory Rate 20 24 20 Respiratory Effort / Characteristics Non-Labored Spontaneous Non-Labored Spontaneous Respiratory Depth Normal Normal Respiratory Pattern Regular Blood Pressure 181/95 H 190/103 H Blood Pressure [Left Arm] 190/103 H Blood Pressure Mean 123 137 Blood Pressure Mean [Left Arm] 132 Pulse Oximetry 96 94 96 Oxygen Delivery Method Room Air Room Air Sepsis Recent Fever Within 48 Hours No Sepsis New/Unexplained Change in Mental Status N/A Sepsis Action Taken by Nursing No Action Required 06/22/24 11:26 06/22/24 12:00 06/22/24 12:30 Temperature Temperature Source Pulse Rate 72 72 72 Pulse Rate [Apical] Pulse Rate from SpO2 Sensor 73 Respiratory Rate 19 19 Respiratory Effort / Characteristics Respiratory Depth Respiratory Pattern Blood Pressure 182/112 H 159/98 H Blood Pressure [Left Arm] Blood Pressure Mean 135 141 Blood Pressure Mean [Left Arm] Pulse Oximetry 92 93 Oxygen Delivery Method Sepsis Recent Fever Within 48 Hours Sepsis New/Unexplained Change in Mental Status Sepsis Action Taken by Nursing 06/22/24 12:37 06/22/24 13:30 06/22/24 13:46 Temperature Temperature Source Pulse Rate 72 Pulse Rate [Apical] 87 74 Pulse Rate from SpO2 Sensor 70 Respiratory Rate 20 27 H 19 Respiratory Effort / Characteristics Non-Labored Spontaneous Non-Labored Spontaneous Respiratory Depth Normal Normal Respiratory Pattern Regular Regular Blood Pressure 155/88 H Blood Pressure [Left Arm] 159/98 H 155/88 H Blood Pressure Mean 110 Blood Pressure Mean [Left Arm] 118 110 Pulse Oximetry 94 94 94 Oxygen Delivery Method Room Air Room Air Sepsis Recent Fever Within 48 Hours Sepsis New/Unexplained Change in Mental Status Sepsis Action Taken by Nursing 06/22/24 14:30 Temperature Temperature Source Pulse Rate 76 Pulse Rate [Apical] Pulse Rate from SpO2 Sensor 77 Respiratory Rate 21 Respiratory Effort / Characteristics Respiratory Depth Respiratory Pattern Blood Pressure 150/90 H Blood Pressure [Left Arm] Blood Pressure Mean 110 Blood Pressure Mean [Left Arm] Pulse Oximetry 97 Oxygen Delivery Method Sepsis Recent Fever Within 48 Hours Sepsis New/Unexplained Change in Mental Status Sepsis Action Taken by Nursing VITAL SIGNS - Vital signs and nursing notes were reviewed. Stable and afebrile. GENERAL -83-year-old female appearing her stated age who is in no acute distress. Communicates well with provider and answers questions appropriately. SKIN - Without rashes. No meningeal or petechial rash. The skin overlying the back is unremarkable. No herpetic lesions. No wounds. No erythema or edema. No crepitus HEAD - NC/AT. EYES - PERRL with EOMI bilaterally. Sclera anicteric. EARS - No deformities of external structures noted on gross examination bilaterally. N MOUTH/OROPHARYNX - Without perioral cyanosis. NECK - Neck with FROM. No nuchal rigidity. LUNGS - CTA CARDIAC - RRR ABDOMEN - Abdominal contour normal without pulsations or visible masses. BS normoactive all four quadrants. No tenderness, palpable masses, hepatosplenomegaly, or ascites noted. EXTREMITIES - No clubbing or peripheral cyanosis. +5/5 strength noted in UE/LE bilaterally. All Musculoskeletal there is tenderness to palpation overlying the superior L- spine without step-off. NEUROLOGIC - Cranial nerves grossly intact. Sensory intact to light touch throughout. Patellar reflexes +2/4. PSYCH -alert, oriented and pleasant on examination Course Administered Medications Acetaminophen (Acetaminophen 500 Mg Tab) 1,000 mg PO Q8 CHRISTI Stop: 07/22/24 21:59 Last Admin: 06/22/24 21:21 Dose: 1,000 mg Documented By: BUCKY Atorvastatin Calcium (Atorvastatin 20 Mg Tab) 20 mg PO HS CHRISTI Stop: 07/22/24 20:59 Last Admin: 06/22/24 20:08 Dose: 20 mg Documented By: BUCKY Clopidogrel Bisulfate (Clopidogrel Bisulfate 75 Mg Tab) 75 mg PO DAILY CHRISTI Stop: 07/22/24 16:12 Last Admin: 06/22/24 17:21 Dose: 75 mg Documented By: CMV Doxycycline Hyclate (Doxycycline Hyclate 100 Mg Cap) 100 mg PO BID CHRISTI Stop: 06/24/24 09:01 Last Admin: 06/22/24 20:08 Dose: 100 mg Documented By: BUCKY Enoxaparin Sodium (Enoxaparin Inj 40 Mg/0.4 Ml Syr) 40 mg SQ Q24H CHRISTI Stop: 07/22/24 16:12 Last Admin: 06/22/24 17:21 Dose: 40 mg Documented By: CMV Furosemide (Furosemide 40 Mg Tab) 40 mg PO DAILY CHRISTI Stop: 07/22/24 16:12 Last Admin: 06/22/24 16:59 Dose: Not Given Documented By: CMV Losartan Potassium (Losartan Potassium 25 Mg Tab) 25 mg PO DAILY CHRISTI Stop: 07/22/24 16:12 Last Admin: 06/22/24 17:22 Dose: 25 mg Documented By: CMV Memantine (Memantine Hcl 10 Mg Tab) 10 mg PO DAILY CHRISTI Stop: 07/22/24 16:12 Last Admin: 06/22/24 17:22 Dose: 10 mg Documented By: CMV Montelukast Sodium (Montelukast Sodium 10 Mg Tablet) 10 mg PO DAILY CHRISTI Stop: 07/22/24 16:12 Last Admin: 09/22/24 17:23 Dose: 10 mg Documented By: CMV Pantoprazole Sodium (Pantoprazole 40 Mg Tab) 40 mg PO DAILY CHRISTI Stop: 07/22/24 16:12 Last Admin: 06/22/24 17:23 Dose: 40 mg Documented By: CMV Spironolactone (Spironolactone 12.5 Mg Tab) 12.5 mg PO QAM CHRISTI Stop: 07/22/24 16:12 Last Admin: 06/22/24 17:23 Dose: 12.5 mg Documented By: CMV Tramadol HCl (Tramadol Hcl 50 Mg Tablet) 25 mg PO Q6H PRN PRN Reason: Pain Stop: 07/22/24 16:12 Last Admin: 06/22/24 18:19 Dose: 25 mg Documented By: CMV Verapamil HCl (Verapamil Hcl 180 Mg Tabcr) 180 mg PO DAILY CHRISTI Stop: 07/22/24 16:12 Last Admin: 06/22/24 17:23 Dose: 180 mg Documented By: CMV Discontinued Medications Acetaminophen (Acetaminophen 500 Mg Tab) 1,000 mg PO NOW STA Stop: 06/22/24 10:13 Last Admin: 06/22/24 10:36 Dose: 1,000 mg Documented By: NRB Magnesium Sulfate/Dextrose (Magnesium Sulfate / D5w) 1 gm in 100 mls @ 50 mls/hr IV ONE ONE Stop: 06/22/24 17:14 Last Infusion: 06/22/24 19:01 Dose: Infused Documented By: Admin: 06/22/24 16:53 Dose: 50 mls/hr Documented By: CMV Lidocaine (Lidocaine 5% 1 Patch) 1 patch TD NOW STA Stop: 06/22/24 10:26 Last Admin: 06/22/24 10:37 Dose: 1 patch Documented By: NRB Potassium Chloride (Potassium Chloride Crtab 20 Meq Tabcr) 20 meq PO NOW STA Stop: 06/22/24 13:53 Last Admin: 06/22/24 14:39 Dose: 20 meq Documented By: [facility] Potassium Chloride (Potassium Chloride Crtab 20 Meq Tabcr) 20 meq PO NOW STA Stop: 06/22/24 16:52 Last Admin: 06/22/24 16:58 Dose: 20 meq Documented By: CMV Medical Decision Making Laboratory Data 06/22/24 12:08 06/22/24 12:08 Lab Results 09/22/24 09/22/24 Range/Units 12:08 12:38 WBC 7.53 (4.8-10.8) K/ul RBC 4.22 (4.20-5.40) M/uL Hgb 14.0 (12.0-16.0) g/dl Hct 40.8 (37.0-47.0) % MCV 96.7 (80.0-100.0) fL MCH 33.2 (25.0-34.0) pg MCHC 34.3 (32.0-36.0) g/dL RDW Std Deviation 44.5 (36.4-46.3) fL RDW Coeff of [place] 12.7 (11.5-14.5) % Plt Count 198 (130-400) K/uL MPV 9.4 (9.4-12.4) fL Immature Gran % (Auto) 0.4 % Neut % (Auto) 72.6 % Lymph % (Auto) 13.7 % [place] % (Auto) 11.8 % Eos % (Auto) 0.8 % Baso % (Auto) 0.7 % Neut # (Auto) 5.47 (1.40-6.50) K/uL Lymph # (Auto) 1.03 L (1.20-3.40) K/uL [place] # (Auto) 0.89 H (0.11-0.59) K/uL Eos # (Auto) 0.06 (0.00-0.50) K/uL Baso # (Auto) 0.05 (0.00-0.20) K/uL Immature Gran # (Auto) 0.03 (0.01-0.20) K/uL Sodium 133 L (136-145) mmol/L Potassium 3.0 L (3.5-5.1) mmol/L Chloride 94 L (98-107) mmol/L Carbon Dioxide 28 (21-32) mmol/L Anion Gap 11 (3-11) BUN 13 (6-23) mg/dl Creatinine 0.74 (0.6-1.2) mg/dl Est Cr Clr Drug Dosing Not Reportable Est GFR ( Amer) 86.2 ml/min Est GFR (Non-Af Amer) 74.4 ml/min BUN/Creatinine Ratio 17.6 (10-20) Glucose 104 H (70-99(Fasting)) mg/dl Calcium 9.5 (8.6-10.3) mg/dl Magnesium 1.5 L (1.7-2.4) mg/dl Total Bilirubin 1.4 H (0.2-1.0) mg/dl AST 25 (13-39) U/L ALT 11 (7-52) U/L Alkaline Phosphatase 73 (34-104) U/L Total Protein 6.7 (6.0-8.3) gm/dl Albumin 4.1 (3.4-5.0) gm/dl Globulin 2.6 (2.5-4.0) gm/dl Albumin/Globulin Ratio 1.6 (0.9-2) Urine Color Yellow Urine Appearance Clear (Clear) Urine pH 6.5 (4.5-7.5) Ur Specific [place] 1.012 (1.000-1.030) Urine Protein Trace H (Negative) Urine Glucose (UA) Negative (Negative) Urine Ketones Trace H (Negative) Urine Blood Negative (Negative) Urine Nitrite Negative (Negative) Urine Bilirubin Negative (Negative) Urine Urobilinogen Negative (Negative) Ur Leukocyte Esterase Negative (Negative) Urine WBC (Auto) 0-5 (0-5) /hpf Urine RBC (Auto) 0-2 (0-2) /hpf U Hyaline Cast (Auto) 6-10 H (0-2) /lpf U Epithel Cells (Auto) 3-5 H (0-2) /hpf Urine Bacteria (Auto) None Seen (None Seen) Hyaline Casts Present A (None Presnt) /lpf Imaging Data Radiologist's Impression: Lumbar Spine CT 06/22/24 10:22 CT OF THE LUMBAR SPINE CLINICAL HISTORY: Low back pain, hx spine surgery COMPARISON STUDY: Lumbar spine CT April 16, 2022. CT of the abdomen and pelvis November 24, 2023. TECHNIQUE: Helical axial images of the lumbar spine were obtained. Sagittal and coronal reconstructions were viewed. Automated exposure control was utilized for the study. A dose lowering technique was utilized adhering to the principles of ALARA. FINDINGS: There are postoperative findings consistent with L4-S1 decompression and fusion. Lucency adjacent to the bilateral L4 pedicle screws is again noted. The postoperative appearance is unchanged. Central canal and neural foramen are suboptimally assessed given CT technique. L2 and L3 superior endplate compression fractures were noted on CT of November 24, 2023. These are chronic. No acute lumbar spine fractures are present. There are no suspicious osseous lesions. There is moderate multilevel degenerative disc disease and facet arthrosis within the lumbar spine. IMPRESSION: 1. No acute lumbar spine fracture or subluxation. 2. Old L2 and L3 compression fractures. 3. Status post L4-S1 decompression and fusion. Lucency adjacent to the bilateral L4 pedicle screws suggestive of loosening. ACT 112: Negative or not required by law. Electronically signed by: Kemar Morales M.D. 06/22/2024 11:43 AM Abdomen/Pelvis CT 06/22/24 10:23 CT OF THE ABDOMEN AND PELVIS WITHOUT CONTRAST CLINICAL HISTORY: Low back pain. COMPARISON STUDY: CT of the abdomen and pelvis November 24, 2023. TECHNIQUE: Axial images of the abdomen and pelvis were obtained without IV contrast. Images were reviewed in the axial, sagittal, and coronal planes. Automated exposure control was utilized for the study. A dose lowering technique was utilized adhering to the principles of ALARA. FINDINGS: Pacer leads are partially imaged. The heart is enlarged. There is no pneumatosis, free air or portal venous gas. No renal, ureteral or bladder calculi are present. There is no hydronephrosis or hydroureter. Evaluation of the remainder of the abdomen and pelvis is suboptimal on this unenhanced exam. Liver, spleen, adrenal glands and pancreas are unremarkable. Colonic diverticulosis. No evidence for acute diverticulitis. There is a moderate amount of stool within the colon. A left lower quadrant hernia contains a portion of the colon. There is no resultant bowel obstruction. There is no free fluid. The appendix is normal. Please note that the lumbar spine CT will be reported separately. Postoperative findings as well as several old compression fractures are better depicted on that exam. IMPRESSION: 1. No urinary calculi or hydronephrosis. 2. No acute process within the abdomen or pelvis on unenhanced exam. No bowel obstruction. Moderate amount of stool within the colon. 3. Left lower quadrant hernia which contains a portion of the colon without resultant bowel obstruction. 4. Extensive colonic diverticulosis. No evidence for acute diverticulitis. ACT 112: Negative or not required by law. Electronically signed by: Kemar Morales M.D. 06/22/2024 11:40 AM MDM Narrative Patient was seen and evaluated as above in room D04a. Review was performed of triage nursing notes and vital signs. I did review pertinent previous visits and patient history. After obtaining a thorough history and physical examination the above work up was performed. Patient presents to us today for evaluation of low back pain. She is well-appearing and nontoxic on assessment. Patient noted to be hypertensive however likely secondary to situation. Options of care were discussed with the patient. IV access was established. Labs were drawn. No leukocytosis or concerning anemia. Mild hyponatremia 133, hypokalemia 3.0, hypochloremia at 94. No evidence of kidney or liver failure emergently but will note mild elevation of T. bili at 1.4. Urinalysis does not suggest infection. CT imaging was obtained of the abdomen/pelvis without contrast as well as L-spine. Results as above. I reviewed these findings with the patient as well as incidentals. The patient does not have any neurovascular deficits on examination. Patient during her time here was medicated with oral acetaminophen as well as a lidocaine patch. The patient does live alone. I did have a discussion with the patient regarding benefit versus risk of inpatient versus outpatient management. Additional person at bedside now accompanying the patient expresses great concern about the patient going home. She feels the patient should stay. I discussed this with the patient and the patient is in agreement. I believe this is reasonable. Case discussed with the hospitalist service. Please refer to further documentation regarding her stay. Oral potassium was ordered for initiation of the repletion of potassium. GCS: 15 In the evaluation and treatment of this patient the following differential diagnoses were entertained: Cauda equina syndrome, spinal hardware failure, compression fracture, UTI, pyelonephritis, sepsis, diverticulitis, among others Impression & Plan Low back pain, History of lumbar surgery, Hypokalemia, Hyponatremia Discharge Plan Visit Data Chief Complaint: Back Injury/Pain ED Provider: Kin James ED Midlevel Provider: Torrey Ibrahim Discharge Problem: Low back pain, History of lumbar surgery, Hypokalemia, Hyponatremia Patient Disposition: Admitted As Inpatient Condition: Good Discharge Instructions Interventions: ED Discharge Assessment Last Done: 06/22/24 15:50
[2024-06-22] MEDS: guaiFENesin SUGAR FREE 200 MG/10 ML UDC PO PRN (22:40)
[2024-06-22 23:26] LABS: Influenza A virus by PCR Negative (Neg); Influenza B virus by PCR Negative (Neg); RSV by PCR Negative (Neg); SARS CoV2 RNA(COVID-19) Ceph NEGATIVE (Negative)
[2024-06-23] MEDS: ZOLPIDEM TARTRATE 5 MG TAB PO PRN (01:37)
--- NOTE | 2024-06-23 07:02 | XRay Report ---
XR chest 1V portable CLINICAL HISTORY: cough TECHNIQUE: Single frontal radiograph of the chest was obtained. Comparison: Comparison is made to chest radiographs 08/17/2022 FINDINGS: An implanted pacemaker is seen. Calcified aortic knob is seen. The lungs are clear. No evidence of pl eural effusion or pneumothorax. IMPRESSION: No acute abnormalities and in particular no radiographic evidence of pneumonia. ACT 112: Negative or not required by law. Electronically signed by: Sam Rehman M.D. 06/23/2024 7:00 AM
[2024-06-23 08:41] LABS: BUN Creatinine Ratio 19.5 (10-20); Calcium 8.7 mg/dl (8.6-10.3); Est GFR (African American) 82.2 ml/min; Est GFR (Non-African American) 70.9 ml/min; Magnesium 1.7 mg/dl (1.7-2.4)
[2024-06-23] MEDS: MAGNESIUM SULFATE / D5W 1 GM/100 ML BAG IV SCH (10:23)
[2024-06-23] MEDS: POTASSIUM CHLORIDE CRTAB 20 MEQ TABCR PO SCH (10:23)
--- NOTE | 2024-06-23 11:16 | Consultation ---
Date of Consultation June 23, 2024 Assessment & Plan (1) Intractable back pain: Dr. Ann has reviewed imaging and treatment plan. 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 Unfortunately this is suboptimally viewed on CT scan. She is unable to have an MRI due to a pacemaker implanted 5 years ago. There is evidence of bone graft fusion mass noted in the posterior gutters throughout her lumbar spine construct/previous surgery. Hardware loosening is not the source of her pain. This was also seen on the March 2022 CT scan that is unchanged. At this point in time she is anxious to return home today. Unfortunately she is not a candidate for pain management injections due to her Plavix secondary to a recent CVA in March of this year. Again no acute surgical indications in light of this as well. She is highly functional and independent still. Recommend current pain control. She can follow-up in an as-needed basis in our office. History of Present Illness Attending Physician: Marlys Pérez MD History of Present Illness This is a pleasant 83-year-old female that we are seeing in consultation regarding hardware loosening found on CT scan. She has back pain that is just adjacent to her prior lumbar fusion. Dr. Ann performed his fusion many years ago. She states she has his back pain off and on. It is not daily. Is been ongoing for quite some time. Denies any lower extremity pain, paresthesia, numbness or weakness. Denies any perineum numbness. Ambulation reproduces her back pain. She is most comfortable resting or in a seated position. She lives at home independently. She ambulates independently as well she is requesting to be discharged home today. She is now on Plavix due to a recent CVA (March 2024)therefore no longer a candidate for pain management injections. Last injection was February 05, [address] Chopra in the form of a right SI joint injection Allergies Allergy/AdvReac Type Severity Reaction Status Date / Time adhesive Allergy Intermediate RASH Verified 06/22/24 14:09 cat dander Allergy Mild itchy,watery Verified 06/22/24 14:09 eyes grass pollen-perennial rye, Allergy Mild itchy,watery Verified 06/22/24 14:09 standar eyes NSAIDS (Non-Steroidal AdvReac Severe Gastrointestinal Verified 06/22/24 14:09 Anti-Inflamma Upset nafcillin AdvReac Intermediate BODY Verified 06/22/24 14:09 WEAKENED,NAUSEA VOMITING,UNABLE TO FUNCTION Sulfa (Sulfonamide AdvReac Intermediate G I UPSET Verified 06/22/24 14:09 Antibiotics) Home Medications Medication Instructions Recorded Confirmed Type zolpidem 5 mg tablet (Ambien) 5 mg PO HS PRN Sleep #0 tabs 07/12/14 06/22/24 History atorvastatin 20 mg tablet 20 mg PO HS #0 tabs 06/02/15 06/22/24 History cetirizine 10 mg tablet (Zyrtec) 10 mg PO DAILY PRN Congestion 03/30/22 06/22/24 History fluticasone propionate 50 1 spray intranasal DAILY PRN 03/30/22 06/22/24 History mcg/actuation nasal Congestion spray,suspension losartan 25 mg tablet (Cozaar) 25 mg PO DAILY 03/30/22 06/22/24 History pantoprazole 40 mg tablet,delayed 40 mg PO DAILY 03/30/22 06/22/24 History release (Protonix) verapamil 180 mg tablet,extended 180 mg PO DAILY 04/16/22 06/22/24 History release albuterol sulfate 90 mcg/actuation 2 puff inhalation Q4H PRN Cough 07/13/23 06/22/24 History aerosol inhaler memantine 10 mg tablet 10 mg PO DAILY 07/13/23 06/22/24 History polyethylene glycol 3350 17 17 g PO DAILY PRN Constipation 11/24/23 06/22/24 History gram/dose oral powder (Miralax) spironolactone 25 mg tablet 12.5 mg PO QAM 11/24/23 06/22/24 History clopidogrel 75 mg tablet 75 mg PO DAILY 06/22/24 06/22/24 History furosemide 40 mg tablet 40 mg PO DAILY 06/22/24 06/22/24 History montelukast 10 mg tablet 10 mg PO DAILY 06/22/24 06/22/24 History zolpidem 5 mg tablet 5 mg PO HS PRN Insomnia 06/23/24 06/23/24 History magnesium oxide 400 mg (241.3 mg 400 mg PO QAM #30 tabs 06/24/24 Rx magnesium) tablet potassium chloride 20 mEq 20 meq PO QAM #14 tabs 06/24/24 Rx tablet,extended release(part/cryst) tramadol 50 mg tablet 25 mg (1/2 x 50 mg) PO BID PRN 06/24/24 Rx severe pain (scale score 7-10) 5 days #10 tabs Patient History Medical History SSS (sick sinus syndrome) CVA (cerebral vascular accident) PAF (paroxysmal atrial fibrillation) Presence of Watchman left atrial appendage closure device Sacral fracture Anemia Hypertension History of OR (myocardial infarction) 1999 CAD (coronary artery disease) STENT X 1 (1999) Surgical History Status post cardiac pacemaker procedure Family History Other No pertinent family history Social History Smoking Status: Never smoker Second Hand Exposure: No; Do You Dip or Chew Tobacco: No; Tobacco Cessation Education Requested by Patient: No Hx Alcohol Use: No Hx Substance Use: No Preferred Language: Lithuanian Communication Ability: Effective Visual Impairment: Limited Hearing Ability: Normal Control Room Supervisor Required: Yes Beliefs That Will Affect Care: None marital status: / Current Living Situation: Alone Current Living Situation Comment: Sister lives next door, shares duplex with her How many Children do You have: 2 How many Children do You have Comment: Daughter calls daily but doesn't live locally. Son who is local is not involved with care much. Other Information That Helps Us Care for You: No Feels Safe at Home: Yes Safety Concerns: Feels Safe At This Time Diet: regular during the past year weight has: remained stable Physical Activity Frequency: Does not Exercise Seatbelt Use: always Do you think of yourself as: straight/heterosexual Assistive Devices: Glasses Assistive Devices Comment: reading only Review of Systems Review of Systems: All systems reviewed & are unremarkable except as noted in HPI & below Physical Exam Physical Exam: She is alert and oriented x 3 Cooperative with exam She is able to transition in bed from laying down to a seated position independently and with ease She has a well-healed lumbar incision she points to pain just superior to incision She is nontender to position with the bilateral sciatic notch regions. Strength is intact bilateral lower extremities Results & Data Vital Signs (Past 12 Hours) Vital Signs Temp Pulse Resp BP Pulse Ox O2 Del Method 06/23/24 07:33 36.5 C 71 16 96/50 L 94 Room Air Diagnostic Findings [facility], [place] [phone] CT Scan Report Patient: CISCO MEJIA Admit Date: 06/22/24 MR#: [id number] Address1: [address] [place] [address] Acct ID:[id number] Address2: [address] Date: 1940 [facility] Zip: [place] [id number] Age: 83 Location: ED Sex: F Room/Bed: Att Phy: Diagnosis: ILLNESS Juanita Phy: Tramaine Mcdonald MD Service Date: 06/22/24 Fam Phy: Interpreting Phy: Kemar Morales MDAdmit Phy: Ordering Phy: Torrey Ibrahim PA-C cc: ~ CT OF THE LUMBAR SPINE CLINICAL HISTORY: Low back pain, hx spine surgery COMPARISON STUDY: Lumbar spine CT April 16, 2022. CT of the abdomen and pelvis November 24, 2023. TECHNIQUE: Helical axial images of the lumbar spine were obtained. Sagittal and coronal reconstructions were viewed. Automated exposure control was utilized for the study. A dose lowering technique was utilized adhering to the principles of ALARA. FINDINGS: There are postoperative findings consistent with L4-S1 decompression and fusion. Lucency adjacent to the bilateral L4 pedicle screws is again noted. The postoperative appearance is unchanged. Central canal and neural foramen are suboptimally assessed given CT technique. L2 and L3 superior endplate compression fractures were noted on CT of November 24, 2023. These are chronic. No acute lumbar spine fractures are present. There are no suspicious osseous lesions. There is moderate multilevel degenerative disc disease and facet arthrosis within the lumbar spine. IMPRESSION: 1. No acute lumbar spine fracture or subluxation. 2. Old L2 and L3 compression fractures. 3. Status post L4-S1 decompression and fusion. Lucency adjacent to the bilateral L4 pedicle screws suggestive of loosening. ACT 112: Negative or not required by law. Electronically signed by: Kemar Morales M.D. 06/22/2024 11:43 AM Dictated: 06/22/24 1140 Transcribed: 06/22/24 1140
--- NOTE | 2024-06-23 12:36 | Hospitalist Progress Note ---
Date of Service June 23, 2024 Assessment & Plan (1) Intractable back pain: Plan: Patient presenting from home for evaluation of intractable back pain. History of chronic back pain s/p spinal surgery several years ago in [place]. Patient has received injections in the past most recently 01/2024. Patient had a CVA in March and is now on Plavix and is unable to receive injections. In the ED, CT lumbar spine: No acute lumbar spine fracture or subluxation. Old L2 and L3 compression fractures. Status post L4-S1 decompression and fusion. Lucency adjacent to the bilateral L4 pedicle screws suggestive of loosening. Pt reports back pain getting better, c/w pain Mx. Consult spine ortho due to noted pedicle screw loosening, await further recs. Schedule Tylenol 1g q8h, Lidoderm patch, PRN Tramadol PT/OT, likely will need rehab - ? [facility], CM to follow Recent URI: complete doxy course prescribed as OP by per PCP office. (2) Hypokalemia: (3) Hypomagnesemia: Plan: K+ 3.0, Mg+ 1.7 Replaced today Furosemide increased a few months ago, may need daily potassium supplementation (4) PAF (paroxysmal atrial fibrillation): (5) Presence of Watchman left atrial appendage closure device: Plan: Rate controlled on Verapamil (6) CAD (coronary artery disease): (7) CVA (cerebral vascular accident): Plan: Continue [employer] Plavix and statin (8) Pacemaker: (9) SSS (sick sinus syndrome): Plan: No acute issues DVT PROPHYLAXIS: SQ Lovenox Admission and Anticipated Discharge Date Admission Date: June 22, 2024 Subjective Patient was seen and examined at bedside. Patient was lying in bed, on room air, NAD, resting comfortably. Patient reports improving back pain, denies incontinence of bowel or bladder. Patient reports eating okay and moving bowels okay. Patient denies other ROS. Physical Exam Physical Exam: Constitutional: WD/WN, vitals as a sulema no acute dis tress Eyes: PERRL, conjunctiva e normal, anicteri c sclerae ENMT: external ear and n ose normal, oropha rynx normal Respiratory: normal respiratory effort, lungs zach ar to auscultation Cardiovascular: Rate/Rhythm: regul ar rate and regula r rhythm Vessels: normal peripheral pulses Extremiti es: no edema Gastrointestinal ( Abdomen): normal bowel sound s, soft, nontender , no hepatosplenom egaly Musculoskeletal: Spine: straight le g raise negative b ilaterally Skin: no rashes, warm an d dry Neurologic: PERRL, EOMI, accom modation nl, no fa ce palsy, no dysar thria Psychiatric: A+Ox3, euthymic af fect forgetul Results & Data Results & Data Vital Signs (Past 12 Hours) Vital Signs Temp Pulse Resp BP Pulse Ox O2 Del Method 06/23/24 07:33 36.5 C 71 16 96/50 L 94 Room Air
[2024-06-23] MEDS: COUGH DROP (SUGAR FREE) LOZ 24 LOZ/1 BOX BUCCAL ONE (21:13)
[2024-06-24 07:16] VITALS: BP 161/85; PULSE 85; RESP 18; TEMP 97.9; O2SAT 97
[2024-06-24 07:33] LABS: Hematocrit (blood only) 35.8 % (37.0-47.0); Hemoglobin 12.7 g/dl (12.0-16.0); Mean Corpuscular Hemoglobin 33.3 pg (25.0-34.0); Mean Corpuscular Hgb Conc 35.5 g/dL (32.0-36.0); Mean Platelet Volume 9.5 fL (9.4-12.4); Platelet Count 213 K/uL (130-400); RDW Coefficient of Variation 12.5 % (11.5-14.5); RDW Standard Deviation 43.5 fL (36.4-46.3); Red Blood Count 3.81 M/uL (4.20-5.40); White Blood Count 8.14 K/ul (4.8-10.8)
[2024-06-24 08:11] LABS: BUN Creatinine Ratio 22.7 (10-20); Calcium 9.1 mg/dl (8.6-10.3); Creatinine Clr Calc Pharmacy 46.2 ml/min; Est GFR (African American) 84.8 ml/min; Est GFR (Non-African American) 73.2 ml/min; Magnesium 1.8 mg/dl (1.7-2.4); Phosphorus 2.8 mg/dl (2.5-4.9)
--- NOTE | 2024-06-24 11:32 | Discharge Summary ---
Date of Service June 24, 2024 Admission HPI Per Admitting Provider 83-year-old female with PMH paroxysmal atrial fibrillation s/p Watchman device, history of CVA, HTN, CAD, tachybradycardia syndrome s/p pacemaker, GERD, chronic back pain, dementia, and other problems listed below who presents to the ED for evaluation of mid back pain. Patient states her pain initially began a few weeks ago. She was seen by her PCP who ordered PT but this has not been set up yet. Patient reports she woke up this morning and had acute worsening of her mid back pain. She denies any known trauma. Patient used to see pain management and receive back injections however she was recently started on Plavix for CVA and is now unable to receive the injections. Also during PCP visit last week, patient was started on doxycycline for upper respiratory infection. Patient states her symptoms are improving. No chest pain or shortness of breath. Denies lightheadedness, dizziness, diaphoresis, syncopal events. No fevers or chills. Denies urinary symptoms. In the ED, CT lumbar spine is unremarkable for acute findings. Labs show mild hypokalemia and hypomagnesemia. Patient was given Tylenol, potassium replacement, Lidoderm patch was applied. Admission Exam Per Admitting Provider Constitutional: WD/WN, vitals as above no acute distress Eyes: PERRL, conjunctivae normal, anicteric sclerae ENMT: external ear and nose normal, oropharynx normal Respiratory: normal respiratory effort, lungs clear to auscultation Cardiovascular: Rate/Rhythm: regular rate and regular rhythm Vessels: normal peripheral pulses Extremities: no edema Gastrointestinal (Abdomen): normal bowel sounds, soft, nontender, no hepatosplenomegaly Musculoskeletal: Spine: straight leg raise negative bilaterally pedal pushes and pulls strong BL, LLE strength 4/5, RLE strength 5/5 Skin: no rashes, warm and dry Neurologic: PERRL, EOMI, accommodation nl, no face palsy, no dysarthria Psychiatric: A+Ox3, euthymic affect forgetul Principal Diagnosis Intractable back pain Hypokalemia and hypomagnesemia Recent URI Discharge Exam Constitutional: WD/WN, vitals as above no acute distress Eyes: PERRL, conjunctivae normal, anicteric sclerae ENMT: external ear and nose normal, oropharynx normal Respiratory: normal respiratory effort, lungs clear to auscultation Cardiovascular: Rate/Rhythm: regular rate and regular rhythm Vessels: normal peripheral pulses Extremities: no edema Gastrointestinal (Abdomen): normal bowel sounds, soft, nontender, no hepatosplenomegaly Musculoskeletal: Spine: straight leg raise negative bilaterally No spine tenderness on exam. Skin: no rashes, warm and dry Neurologic: PERRL, EOMI, accommodation nl, no face palsy, no dysarthria Psychiatric: A+Ox3, euthymic affect forgetul Discharge Data Allergies Allergy/AdvReac Type Severity Reaction Status Date / Time adhesive Allergy Intermediate RASH Verified 06/22/24 14:09 cat dander Allergy Mild itchy,watery Verified 06/22/24 14:09 eyes grass pollen-perennial rye, Allergy Mild itchy,watery Verified 06/22/24 14:09 standar eyes NSAIDS (Non-Steroidal AdvReac Severe Gastrointestinal Verified 06/22/24 14:09 Anti-Inflamma Upset nafcillin AdvReac Intermediate BODY Verified 06/22/24 14:09 WEAKENED,NAUSEA VOMITING,UNABLE TO FUNCTION Sulfa (Sulfonamide AdvReac Intermediate G I UPSET Verified 06/22/24 14:09 Antibiotics) Consultations 06/22/24 14:06 ED Decision to Admit Stat 06/22/24 17:20 Consult Orthopedic Spine Surgery Routine Ordered Studies 06/22/24 10:22 CT lumbar spine wo con Stat 06/22/24 10:23 CT abd pelvis wo con Stat Hospital Course (1) Intractable back pain: Patient presenting from home for evaluation of intractable back pain. History of chronic back pain s/p spinal surgery several years ago in [place]. Patient has received injections in the past most recently 01/2024. Patient had a CVA in March and is now on Plavix and is unable to receive injections. In the ED, CT lumbar spine: No acute lumbar spine fracture or subluxation. Old L2 and L3 compression fractures. Status post L4-S1 decompression and fusion. Lucency adjacent to the bilateral L4 pedicle screws suggestive of loosening. Pt reports back pain getting better, c/w pain Mx. Patient would like to go home. Orthospine evaluated, appreciate recommendation. Patient to follow-up with orthospine as an outpatient. Patient to continue physical therapy upon discharge. Recent URI: completed doxy course prescribed as OP by per PCP office. (2) Hypokalemia: (3) Hypomagnesemia: Furosemide increased a few months ago, may need daily potassium supplementation , Will discharge on 20 mEq potassium daily. And magnesium oxide daily. (4) PAF (paroxysmal atrial fibrillation): (5) Presence of Watchman left atrial appendage closure device: Rate controlled on Verapamil (6) CAD (coronary artery disease): (7) CVA (cerebral vascular accident): Continue IMPROVEMENT LEAD Plavix and statin (8) Pacemaker: (9) SSS (sick sinus syndrome): No acute issues DVT PROPHYLAXIS: SQ Lovenox Plan Patient is being discharged to home with home health with following instruction at the point of discharge: Follow-up with your primary care physician within a week time and likely you will need labs CBC/CMP/magnesium/phosphorus. You were evaluated by orthospine for your back pain, continue physical therapy and pain management. You can utilize [id number] Tylenol and 4% lidocaine patch for mild to moderate pain, you are prescribed tramadol for severe pain. Follow-up with orthospine as an outpatient. Since you needed magnesium and potassium supplementation while in the hospital, you will be discharged on those supplements, follow-up with the PCP for ongoing management. Your sodium level has been low 130s while in hospital, hold your Aldactone for next 3 to 5 days, get repeat blood test (BMP) at your PCP office in 3 to 5 days and resume Aldactone pending further evaluation by your PCP after the blood test. Take your medications as prescribed. Please make sure that you are able to get your medications today by calling your pharmacy before you leave the hospital so that your treatment continuity is not broken. Home Health Attestation I certify that this patient is under my care and that I, or a physicians sales assistant displays working with me, had a face to-face encounter that meets the home health [id number] encounter requirements with this patient. The encounter with the patient was in whole, or in part, for the following medical condition, which is the primary reason for home health care (list medical condition): I certify that, based on my findings, the following services are medically necessary home health services: My clinical findings support the need for the above services because: Further, I certify that my clinical findings support that this patient is homebound (i.e. absences from home require considerable and taxing effort and are for medical reasons or christianity services or infrequently or of short duration when for other reasons) because: Certification for Home Health Services: Based on the above findings, I certify that this patient is confined to the home and needs intermittent [facility] care, physical therapy and/or speech therapy or continues to need occupational therapy. The patient is under my care, and I have initiated the establishment of the plan of care. This patient will be followed by a physician who will periodically review the plan of care. Total Time Total Time Spent Total Time Spent (In Minutes): 40 Discharge Plan Discharge Items Patient Disposition: Home - Home Health Services Reason For Visit: INTRACTABLE BACK PAIN Discharge Diagnosis: Intractable back pain Hypokalemia and hypomagnesemia Recent URI Condition on Discharge: Good Activity: As commented below Activity Comment: continue with home health physical therapy Non-emergency contact: Primary Care Provider Call non-emergency contact if: you have any medication questions, your symptoms worsen, your pain is worsening and your temperature is above 101 Follow-up/Referrals: Tramaine Mcdonald MD [Primary Care Provider] - (Date & Time 06/26/2024 1:40 PM Provider Tramaine Mcdonald MD Department [facility] ) Diet: Heart Healthy and Low Sodium (2gm) Addtl Attending Provider Instructions: Follow-up with your primary care physician within a week time and likely you will need labs CBC/CMP/magnesium/phosphorus. You were evaluated by orthospine for your back pain, continue physical therapy and pain management. You can utilize [id number] Tylenol and 4% lidocaine patch for mild to moderate pain, you are prescribed tramadol for severe pain. Follow-up with orthospine as an outpatient. Since you needed magnesium and potassium supplementation while in the hospital, you will be discharged on those supplements, follow-up with the PCP for ongoing management. Your sodium level has been low 130s while in hospital, hold your Aldactone for next 3 to 5 days, get repeat blood test (BMP) at your PCP office in 3 to 5 days and resume Aldactone pending further evaluation by your PCP after the blood test. Take your medications as prescribed. Please make sure that you are able to get your medications today by calling your pharmacy before you leave the hospital so that your treatment continuity is not broken. Pending Studies at Discharge: No Stand-Alone Forms: [employer], Smoking Cessation Medications and DC Order Prescriptions: New tramadol 50 mg Tablet 25 mg PO BID PRN (Reason: severe pain (scale score 7-10)) 5 Days Qty: 10 0RF potassium chloride 20 mEq Tablet,Er Particles/Crystals 20 meq PO QAM Qty: 14 0RF magnesium oxide 400 mg (241.3 mg magnesium) Tablet 400 mg PO QAM Qty: 30 0RF Continued pantoprazole [Protonix] 40 mg tablet,delayed release (DR/EC) 40 mg PO DAILY losartan [Cozaar] 25 mg tablet 25 mg PO DAILY cetirizine [Zyrtec] 10 mg tablet 10 mg PO DAILY PRN (Reason: Congestion) fluticasone propionate 50 mcg/actuation spray,suspension 1 spray intranasal DAILY PRN (Reason: Congestion) Rx Instructions: administer into each nostril zolpidem [Ambien] 5 mg Tablet 5 mg PO HS PRN (Reason: Sleep) Qty: 0 atorvastatin 20 mg Tablet 20 mg PO HS Qty: 0 verapamil 180 mg tablet extended release 180 mg PO DAILY albuterol sulfate 90 mcg/actuation HFA aerosol inhaler 2 puff inhalation Q4H PRN (Reason: Cough) Rx Instructions: as directed memantine 10 mg tablet 10 mg PO DAILY polyethylene glycol 3350 [Miralax] 17 gram/dose Powder 17 g PO DAILY PRN (Reason: Constipation) furosemide 40 mg tablet 40 mg PO DAILY clopidogrel 75 mg tablet 75 mg PO DAILY montelukast 10 mg tablet 10 mg PO DAILY zolpidem 5 mg tablet 5 mg PO HS PRN (Reason: Insomnia) Held spironolactone 25 mg tablet 12.5 mg PO QAM Hold Instructions: Resume on 06/30/24. Resume after PCP evaluation within a week time. Discontinued doxycycline hyclate 100 mg capsule 100 mg PO BID Rx Instructions: Start Date 06/17/24 x7 day supply Admission Data Admit Date/Time: 06/22/24 14:44 Attending Provider: Marlys Pérez Admit Provider: Rosa Ramirez Primary Care Provider: Tramaine Mcdonald Other Providers: Jarrod Ann Cindy D.
[2024-06-25] MEDS ORDERED: MAGNESIUM OXIDE 400 MG TAB PO SCH (09:00)
[2024-06-25] MEDS ORDERED: POTASSIUM CHLORIDE CRTAB 20 MEQ TABCR PO SCH (09:00)
== END 2024-06-24 13:20 | disposition home health service (06) ==
LOC: 3N 10:03 → ED 10:03 → SUATTDRO 14:44 → 3N 15:50